=== PATIENT | female | born 1995 | race Caucasian/White ===

== ENCOUNTER → 2018-02-28 12:04 | Outpatient (REF) | payer SELFPAY ==
[2018-02-28 17:41] LABS: Basophils % 0.3 % (0.1-2.0); Eosinophils # 0.1 K/mm3 (0.0-0.4); Eosinophils % 1.6 % (0.1-12.0); Hematocrit 41.5 % (37.0-47.0); Hemoglobin 13.3 g/dL (12.2-16.2); Lymphocytes # 1.6 K/mm3 (0.7-4.5); Lymphocytes % 22.6 K/mm3 (10-50); Mean Corpuscular HGB Conc 32.1 g/dL (31.8-35.4); Mean Corpuscular Hemoglobin 27.4 pg (27.0-31.2); Mean Corpuscular Volume 85.3 fl (81-99); Mean Platelet Volume 8.7 fl (7.4-10.4); Monocytes # 0.4 K/mm3 (0.1-1.0); Monocytes % 5.3 % (1.7-9.3); Neutrophils # 5.1 K/mm3 (1.8-7.8); Neutrophils % 70.2 % (37.0-80.0); Platelet Count 249 K/mm3 (142-424); Red Blood Count 4.87 M/mm3 (4.20-5.40); Red Cell Distribution Width 14.2 % (11.5-17.5); White Blood Count 7.3 K/mm3 (4.5-13.0)
[2018-02-28 18:47] LABS: Alanine Aminotransferase 21 U/L (12-78); Albumin Level 3.8 gm/dL (3.4-5.0); Albumin/Globulin Ratio 1.1 (1.1-1.8); Alkaline Phosphatase 106 U/L (46-116); Aspartate Amino Transferase 20 U/L (15-37); Bilirubin,Total 0.2 mg/dL (0.2-1.0); Blood Urea Nitrogen 11 mg/dL (7-18); Calcium 9.1 mg/dL (8.5-10.1); Carbon Dioxide 26 mmol/L (21.0-32.0); Chloride 108 mmol/L (98-107); Creatinine,Serum 0.93 mg/dL (0.55-1.02); Estimated Glomerular Filt Rate 77 ml/min (>60); Free T4 (Free Thyroxine) 1.08 ng/dl (0.78-1.34); GFR (African American) 93 ML/MIN (>60); Globulin 3.4 gm/dl (1.3-3.2); Glucose 94 mg/dL (74-106); Sodium 144 mmol/L (136-145); Thyroid Stimulating Hormone 0.88 uIU/ml (0.516-4.13); Total Protein,Serum 7.2 gm/dL (6.4-8.2)
[2018-03-04 08:31] LABS: Vitamin D 25 Hydroxy 33.3 ng/mL (30.0-100.0)
== END ==
LOC: LAB 12:04
PROVIDERS: Visit Provider Emergency Medicine
DX: R68.89 Other general symptoms and signs (principal); E66.9 Obesity, unspecified
CPT/HCPCS: 80053; 82652; 84439; 84443; 85025

== ENCOUNTER → 2020-05-18 14:27 | Outpatient (CLI) | payer OTHER, SELFPAY ==
[2020-05-18 15:23] LABS: Adenovirus,PCR Not Detected (NotDetected); Bordetella Pertussis Not Detected (NotDetected); Chlamydophila Pneumoniae, PCR Not Detected (NotDetected); Coronavirus 229E Not Detected (NotDetected); Coronavirus NL63 Not Detected (NotDetected); Coronavirus OC43 Not Detected (NotDetected); Coronovirus HKU1,PCR Not Detected (NotDetected); Human Metapneumovirus Not Detected (NotDetected); Influenza A, PCR Not Detected (NotDetected); Influenza AH1, 2009 Not Detected (NotDetected); Influenza AH1, PCR Not Detected (NotDetected); Influenza AH3,PCR Not Detected (NotDetected); Influenza B, PCR Not Detected (NotDetected); Mycoplasma Pneumoniae, PCR Not Detected (NotDetected); Parainfluenza 1, PCR Not Detected (NotDetected); Parainfluenza 2, PCR Not Detected (NotDetected); Parainfluenza 3, PCR Not Detected (NotDetected); Parainfluenza 4, PCR Not Detected (NotDetected); Respiratory Syncytial Virus Not Detected (NotDetected); Rhinovirus/Enterovirus Not Detected (NotDetected)
--- NOTE | 2020-05-18 17:50 | PC.NURSE ---
Notified pt of positive covid swab
[2020-05-18 18:12] LABS: Coronavirus 19, PCR Detected (NotDetected)
== END ==
PROVIDERS: PCP Emergency Medicine; Visit Provider Nurse Practitioner Psychiatric/Mental Health
DX: Z20.828 Contact with and (suspected) exposure to other viral communicable diseases (principal); U07.1 COVID-19
CPT/HCPCS: 87581; 87633; 87798

== ENCOUNTER 2020-12-26 16:09 | Inpatient (IN) | payer OTHER, SELFPAY ==
[2020-12-26] VITALS (8 sets, daily range): BP systolic 118–161; BP diastolic 54–95; PULSE 69–82; RESP 16–17; TEMP 36.6–36.8; O2SAT 96–100; BMI 58.3; BMI 40.7
--- NOTE | 2020-12-26 | US_ITS ---
PROCEDURE INFORMATION: Exam: US Pelvis, Transvaginal Exam date and time: 12/26/2020 12:00 AM Age: 25 years old Clinical indication: Patient HX: Acute pelvic pain TECHNIQUE: Imaging protocol: Real-time transvaginal pelvic ultrasound with image documentation. Transvaginal imaging was used for better evaluation of the endometrium, adnexa, and/or cervix. COMPARISON: CT ABDOMEN PELVIS W CON 12/26/2020 5:11 PM FINDINGS: Uterus/cervix: Uterus is anteverted and measures 6.3 x 3.4 x 4.2 cm. Endometrium homogeneous in echotexture measuring 3 mm in thickness at the uterine fundus. Right adnexa: Right ovary normal in appearance and measures 3.5 x 2.4 x 3.9 cm. Left adnexa: Left ovary not definitively visualized. Intraperitoneal space: Small amount of pelvic free fluid. Other findings: Partially visualized, partially cystic, complex mass extending from the left adnexa into the medial aspect of the right adnexa, measuring approximately 8 cm in diameter. IMPRESSION: Complex mass within the left adnexa, possibly involving the left ovary, although no definite left ovarian normal tissue identified. Large hemorrhagic ovarian cyst possible. Recommend gynecologic evaluation and sonographic follow-up.
--- NOTE | 2020-12-26 16:23 | CT_ITS ---
PROCEDURE INFORMATION: Exam: CT Abdomen And Pelvis With Contrast Exam date and time: 12/26/2020 4:23 PM Age: 25 years old Clinical indication: Localized; Left lower quadrant (llq); Patient HX: Left lower quadrant abdominal pain for about 3 hours with nausea; Additional info: Llq pain TECHNIQUE: Imaging protocol: Computed tomography of the abdomen and pelvis with contrast. Radiation optimization: All CT scans at this facility use at least one of these dose optimization techniques: automated exposure control; mA and/or kV adjustment per patient size (includes targeted exams where dose is matched to clinical indication); or iterative reconstruction. Contrast material: ISOVUE; Contrast volume: 75 ml; Contrast route: IV; COMPARISON: CR (PELVIS AP, PELVIS, PELVIS AP) 11/17/2018 6:09 PM FINDINGS: Lungs: Calcified granuloma within the periphery of the right lower lobe. Liver: Normal. Gallbladder and bile ducts: Normal. Pancreas: Normal. Spleen: Normal. Adrenal glands: Normal. No mass. Kidneys and ureters: Normal. Stomach and bowel: Normal. Appendix: Appendix normal. Intraperitoneal space: Small amount of pelvic free fluid, likely physiologic. Vasculature: Phleboliths within the pelvis. Lymph nodes: Unremarkable. No enlarged lymph nodes. Urinary bladder: Unremarkable as visualized. Reproductive: Heterogeneous bilobed structure within the left upper pelvis measuring 4.8 x 4.1 cm, possibly enlarged left ovary, although not definitively characterized. Bones/joints: No acute abnormality. Soft tissues: Normal. IMPRESSION: Heterogeneous bilobed structure within the left upper pelvis measuring 4.8 x 4.1 cm, possibly enlarged left ovary, although not definitively characterized. Recommend further evaluation with sonography.
--- NOTE | 2020-12-26 16:34 | HMH.EDABDPAI ---
ED Disposition Clinical Impression: Hemorrhagic cyst of left ovary, Intractable abdominal pain Disposition: Admitted As Inpatient Condition on Discharge: Fair Instructions: DI for Acute Abdominal Pain Referrals: José Umanzor MD [Primary Care Provider] - - Critical Care Critical Care Time: No Attestation: On , the high probability of a clinically significant, sudden or life threatening deterioration of the following system(s) required my full and direct attention, intervention and personal management. The time I documented below is in addition to time spent performing reported procedures but includes the following listed in this critical care notation. Medical Decision Making - Medical Records Medical records reviewed: Yes: I reviewed the patient's medical records. - Abdulaziz Inquiry Pt receiving controlled substance: Yes Abdulaziz was queried for this patient: No Reason not queried -: Emergent pt cond-no time Risks and benefits of using a controlled substance: were discussed with pt by me Vital Signs: 12/26/20 16:10 12/26/20 16:26 12/26/20 16:32 Temperature 98 F Temperature Source Oral Pulse Rate 77 80 Pulse Rate [Radial] 77 Respiratory Rate 16 Blood Pressure 161/92 H 161/80 H Blood Pressure [Right Arm] 120/54 L Blood Pressure Mean [Right Arm] 76 Blood Pressure Position [Right Arm] Sitting 02 Sat by Pulse Oximetry 98 96 98 Oxygen Delivery Method Room Air 12/26/20 17:49 Temperature Temperature Source Pulse Rate 70 Pulse Rate [Radial] Respiratory Rate Blood Pressure 118/80 Blood Pressure [Right Arm] Blood Pressure Mean [Right Arm] Blood Pressure Position [Right Arm] 02 Sat by Pulse Oximetry 96 Oxygen Delivery Method - Lab Data Lab Results 12/26/20 16:28: Urine Color Yellow, Urine Appearance Clear, Urine pH 7.5, Ur Specific [place] 1.025, Urine Protein 2+, Urine Glucose (UA) Negative, Urine Ketones Negative, Urine Blood 3+, Urine Nitrate Negative, Urine Bilirubin Negative, Urine Urobilinogen 1.0, Ur Leukocyte Esterase Negative, Urine RBC Tntc, Urine WBC 5-10, Ur Squamous Epith Cells 3-5, Urine Bacteria 1+, Urine Mucus 1+ 12/26/20 16:28: Urine HCG, Qual Negative 12/26/20 16:28: WBC 10.5, RBC 4.74, Hgb 12.5, Hct 38.5, MCV 81.3, MCH 26.3 L, MCHC 32.4, RDW 15.8, Plt Count 302, MPV 8.3, Neut % (Auto) 66.9, Lymph % (Auto) 26.1, [place] % (Auto) 5.0, Eos % (Auto) 1.5, Baso % (Auto) 0.5, Neut # (Auto) 7.0, Lymph # (Auto) 2.8, [place] # (Auto) 0.5, Eos # (Auto) 0.2, Baso # (Auto) 0.1 12/26/20 16:28: Sodium 141, Potassium 4.0, Chloride 109 H, Carbon Dioxide 23, Anion Gap 13.0, BUN 11, Creatinine 0.90, Estimated Creat Clear 181, Estimated GFR 78, Est GFR ( Amer) 94, Glucose 111 H, Calcium 9.1, Total Bilirubin 0.4, AST 22, ALT 13, Alkaline Phosphatase 121, Total Protein 7.9, Albumin 4.6, Globulin 3.3 H, Albumin/Globulin Ratio 1.4 12/26/20 16:28: Lipase 49 Result diagrams: 12/26/20 16:28 12/26/20 16:28 Orders (Tests/Meds): ED MEDICATIONS Discontinued Medications Generic Name Dose Route Start Last Admin Trade Name Lukasq PRN Reason Stop Dose Admin Fentanyl Citrate 50 mcg 12/26/20 18:20 12/26/20 18:23 Fentanyl 100mcg/2ml Vial IV 12/26/20 18:21 50 mcg ONCE ONE Administration Sodium Chloride 1,000 mls @ 999 mls/hr 12/26/20 16:30 12/26/20 16:34 Sod Chlor 0.9% 1000ml Bag IV 12/26/20 17:30 999 mls/hr .Q1H1M AIDA Administration Iopamidol 75 ml 12/26/20 17:19 12/26/20 17:20 Iopamidol-370 (76%);100ml Bottle IV 12/26/20 17:20 75 ml ONCE ONE Administration Morphine Sulfate 4 mg 12/26/20 16:22 12/26/20 16:33 Morphine 4mg/Ml Syringe IV 12/26/20 16:23 4 mg ONCE ONE Administration Morphine Sulfate 4 mg 12/26/20 17:55 12/26/20 18:22 Morphine 4mg/Ml Syringe IV 12/26/20 17:56 Not Given ONCE ONE Ondansetron HCl 4 mg 12/26/20 16:22 12/26/20 16:33 Ondansetron 4mg/2ml Vial IV 12/26/20 16:23 4 mg ONCE ONE Administration Sod
[2020-12-26 16:38] LABS: Microscopic, Urine URINE MICROSCOPIC (MICROSCOPIC)
[2020-12-26 16:42] LABS: Basophils # 0.1 K/mm3 (0-0.2); Basophils % 0.5 % (0.1-2.0); Eosinophils # 0.2 K/mm3 (0.0-0.4); Eosinophils % 1.5 % (0.1-12.0); Hematocrit 38.5 % (37.0-47.0); Hemoglobin 12.5 g/dL (12.2-16.2); Lymphocytes # 2.8 K/mm3 (0.7-4.5); Lymphocytes % 26.1 % (10-50); Mean Corpuscular HGB Conc 32.4 g/dL (31.8-35.4); Mean Corpuscular Hemoglobin 26.3 pg (27.0-31.2); Mean Corpuscular Volume 81.3 fl (81-99); Mean Platelet Volume 8.3 fl (7.4-10.4); Monocytes # 0.5 K/mm3 (0.1-1.0); Neutrophils % 66.9 % (37.0-80.0); Platelet Count 302 K/mm3 (142-424); Red Blood Count 4.74 M/mm3 (4.20-5.40); Red Cell Distribution Width 15.8 % (11.5-17.5); White Blood Count 10.5 K/mm3 (4.8-10.8)
[2020-12-26 16:48] LABS: Chloride 109 mmol/L (98-107); Sodium 141 mmol/L (136-145)
[2020-12-26 16:51] LABS: Alanine Aminotransferase 13 U/L (12-78); Albumin Level 4.6 g/dl (3.5-5.0); Albumin/Globulin Ratio 1.4 (1.1-1.8); Alkaline Phosphatase 121 U/L (38-126); Aspartate Amino Transferase 22 U/L (14-36); Bilirubin,Total 0.4 mg/dl (0.2-1.3); Blood Urea Nitrogen 11 mg/dl (7-17); Calcium 9.1 mg/dl (8.4-10.2); Carbon Dioxide 23 mmol/L (22.0-30.0); Creatinine Clearance Estimated 181 mL/min (50-200); Estimated Glomerular Filt Rate 78 ml/min (>60); GFR (African American) 94 ML/MIN (>60); Globulin 3.3 g/dL (1.3-3.2); Glucose 111 mg/dl (74-100); Total Protein,Serum 7.9 g/dl (6.3-8.2)
[2020-12-26 16:52] LABS: Lipase 49 U/L (23-300)
[2020-12-26 16:57] LABS: Appearance,Urine CLEAR (Clear); Bilirubin,Urine Negative (Negative); Blood, Urine 3+ (Negative); Color,Urine YELLOW (Yellow); Glucose,Urine (UA) Negative (Negative); Ketones,Urine Negative (Negative); Leukocyte Esterase,Urine Negative (Negative); Nitrate,Urine Negative (Negative); PH,Urine 7.5 (5.0-8.5); Protein,Urine 2+ (Negative); Specific Gravity, Urine 1.025 (1.005-1.030)
[2020-12-26 17:01] LABS: Urine Pregnancy, HCG Qual. Negative (Negative)
--- NOTE | 2020-12-26 17:09 | PC.NURSE ---
pt to rad.
[2020-12-26 17:13] LABS: RBC,Urine TNTC #/hpf (0-3)
[2020-12-26 17:14] LABS: Bacteria,Urine 1+ /lpf; Mucus,Urine 1+ /lpf
--- NOTE | 2020-12-26 17:46 | PC.NURSE ---
Pt returned from rad.
--- NOTE | 2020-12-26 17:49 | PC.NURSE ---
Pt requesting more pain meds at this time. aware and will be placing new orders
[2020-12-26 18:43] LABS: Coronavirus 19, PCR Not Detected (NotDetected); Influenza A, PCR Not Detected (NotDetected); Influenza B, PCR Not Detected (NotDetected)
--- NOTE | 2020-12-26 19:45 | PC.NURSE ---
REPORT RECEIVED FROM Angie OWEN RN AT THIS TIME.
--- NOTE | 2020-12-26 19:54 | HMH.HP ---
*Admission Date: 12/26/20 *Chief complaint: Severe left lower quadrant pain, hemorrhagic ovarian cyst *History of present illness: She is a 25-year-old 0 para 0 young lady who complains of severe left lower quadrant pain that started around 2:00 this afternoon. Up until that time she said she was doing well. test is negative. Ultrasound shows that she has a 6 to 7 cm right hemorrhagic ovarian cyst. Not clear why her left side is hurting. Ultrasound did not show the left ovary. [facility] [place] History I have reviewed the patient's past medical history: Yes Medical History: Denies:: Diabetes Mellitus Type 1, Diabetes Mellitus Type 2, Transient Ischemic Attacks (TIA) *Have you ever received a pneumonia vaccine?: No *Have you received a flu vaccine this season?: Yes Laterality Cases: Bilateral: Myringotomy (Ear Tubes), Tonsillectomy Other Surgeries: Yes: Other Amputation: No Fractures: No - *Social History Smoking Status: Never smoker Alcohol Intake: never Alcohol Intake Frequency:: a few times a month Substance Use Type: denies use *Occupational Status:: other, employed Household Members: family *Travel in the last 8 weeks: None Family Hx:: Thyroid Disorder Review of Systems - Review of Systems Review of systems:: pertinent systems reviewed and negative unless documented below - *Neurologic Denies headache(s) Meds Home Medications Medication Instructions Recorded Confirmed Type No Known Home Medications 12/26/20 12/26/20 History Allergies Allergy/AdvReac Type Severity Reaction Status Date / Time No Known Allergies Allergy Verified 12/26/20 18:34 Exam Vital signs and Labs for Last 24 Hours: Temp Pulse Resp BP Pulse Ox 98.0 F 82 16 144/64 H 100 12/26/20 19:22 12/26/20 19:22 12/26/20 19:22 12/26/20 19:22 12/26/20 18:25 Laboratory Results - last 24 hr 12/26/20 16:28: Urine Color Yellow, Urine Appearance Clear, Urine pH 7.5, Ur Specific [place] 1.025, Urine Protein 2+, Urine Glucose (UA) Negative, Urine Ketones Negative, Urine Blood 3+, Urine Nitrate Negative, Urine Bilirubin Negative, Urine Urobilinogen 1.0, Ur Leukocyte Esterase Negative, Urine RBC Tntc, Urine WBC 5-10, Ur Squamous Epith Cells 3-5, Urine Bacteria 1+, Urine Mucus 1+ 12/26/20 16:28: Urine HCG, Qual Negative 12/26/20 16:28: WBC 10.5, RBC 4.74, Hgb 12.5, Hct 38.5, MCV 81.3, MCH 26.3 L, MCHC 32.4, RDW 15.8, Plt Count 302, MPV 8.3, Neut % (Auto) 66.9, Lymph % (Auto) 26.1, [place] % (Auto) 5.0, Eos % (Auto) 1.5, Baso % (Auto) 0.5, Neut # (Auto) 7.0, Lymph # (Auto) 2.8, [place] # (Auto) 0.5, Eos # (Auto) 0.2, Baso # (Auto) 0.1 12/26/20 16:28: Sodium 141, Potassium 4.0, Chloride 109 H, Carbon Dioxide 23, Anion Gap 13.0, BUN 11, Creatinine 0.90, Estimated Creat Clear 181, Estimated GFR 78, Est GFR ( Amer) 94, Glucose 111 H, Calcium 9.1, Total Bilirubin 0.4, AST 22, ALT 13, Alkaline Phosphatase 121, Total Protein 7.9, Albumin 4.6, Globulin 3.3 H, Albumin/Globulin Ratio 1.4 12/26/20 16:28: Lipase 49 12/26/20 18:25: SARS-CoV-2 (PCR) Not detected, Influenza A Untype (PCR) Not detected, Influenza Type B (PCR) Not detected I & O for Last 24 hours: Intake & Output 12/24/20 12/25/20 12/26/20 12/27/20 11:59 11:59 11:59 11:59 Intake Total 1000 / 1000 Balance 1000 / 1000 Weight 260 lb - Constitutional no acute distress - *Routine HEENT Exam Head: Present: normocephalic Eye: Present: EOMI, PERRL ENT: Present: mucous membranes moist - *Routine Neck Exam Present: supple, full ROM - *Routine Respiratory Exam Absent: accessory muscle use (good air entry bilaterally), wheezes, crackles - *Routine Cardiovascular Exam Present: RRR. Absent: murmur - *Routine Abdominal Exam Present: soft, normoactive bowel sounds. Absent: tenderness, rebound, guarding, mass - *Routine Rectal Exam Rectal:: deferred - *Routine Genitalia Exam Genitalia:: deferred - *Routine Extremities Exam Present: full ROM. Absent: c
--- NOTE | 2020-12-26 22:55 | PC.NURSE ---
MD NOTIFIED OF UNRESOLVED PAIN AFTER PRN PAIN MEDICATIONS. PATIENT RATES PAIN 8/10 THAT WAS UNRELIEVED WITH 1MG DILAUDID IV. NEW ORDERS TO CHANGE CURRENT ORDER FOR DILAUDID 1MG IV FROM Q4H TO Q3H. ALSO, ADDITIONAL ORDER FOR DILAUDID 1MG IV Q2H PRN FOR BREAKTHROUGH PAIN AND TORADOL 30MG IV Q6 AIDA. ALL ORDERS R/V
[2020-12-27] VITALS (27 sets, daily range): BP systolic 104–137; BP diastolic 54–94; PULSE 71–105; RESP 12–20; TEMP 36.3–43; O2SAT 92–98
--- NOTE | 2020-12-27 04:10 | PC.NURSE ---
PATIENT HAS DONE WELL THIS SHIFT. PAIN WAS WELL CONTROLLED WITH NEW PRN PAIN MEDICATION AND SHE WAS ABLE TO SLEEP. IV IS PATENT AND INFUSING WELL IN THE LEFT FOREARM. BOWEL SOUNDS ARE NORMOACTIVE IN ALL QUADRANTS. LUNGS CTAB. PAIN AND ABDOMINAL TENDERNESS REMAINS IN LOWER LEFT QUADRANT. PATIENT IS A&O X4 AND AMBULATES INDEPENDENTLY TO THE BATHROOM. CALL LIGHT WITHIN REACH.
--- NOTE | 2020-12-27 06:02 | PC.NURSE ---
LAB AT BEDSIDE
[2020-12-27 06:41] LABS: Basophils % 0.4 % (0.1-2.0); Eosinophils % 0.4 % (0.1-12.0); Hematocrit 36.7 % (37.0-47.0); Hemoglobin 11.7 g/dL (12.2-16.2); Lymphocytes # 1.8 K/mm3 (0.7-4.5); Lymphocytes % 17.8 % (10-50); Mean Corpuscular HGB Conc 31.9 g/dL (31.8-35.4); Mean Corpuscular Hemoglobin 26.3 pg (27.0-31.2); Mean Corpuscular Volume 82.5 fl (81-99); Mean Platelet Volume 8.2 fl (7.4-10.4); Monocytes # 0.6 K/mm3 (0.1-1.0); Monocytes % 5.7 % (1.7-9.3); Neutrophils # 7.7 K/mm3 (1.8-7.8); Neutrophils % 75.7 % (37.0-80.0); Platelet Count 261 K/mm3 (142-424); Red Blood Count 4.45 M/mm3 (4.20-5.40); Red Cell Distribution Width 15.4 % (11.5-17.5); White Blood Count 10.1 K/mm3 (4.8-10.8)
[2020-12-27 06:42] LABS: Chloride 105 mmol/L (98-107); Potassium 4.2 mmoL/L (3.5-5.1); Sodium 137 mmol/L (136-145)
[2020-12-27 06:45] LABS: Alanine Aminotransferase 12 U/L (12-78); Albumin Level 3.7 g/dl (3.5-5.0); Albumin/Globulin Ratio 1.2 (1.1-1.8); Alkaline Phosphatase 95 U/L (38-126); Anion Gap 9.2 mEq/L (5-15); Aspartate Amino Transferase 17 U/L (14-36); Bilirubin,Total 0.3 mg/dl (0.2-1.3); Blood Urea Nitrogen 9 mg/dl (7-17); Carbon Dioxide 27 mmol/L (22.0-30.0); Creatinine Clearance Estimated 233 mL/min (50-200); Estimated Glomerular Filt Rate 104 ml/min (>60); GFR (African American) 125 ML/MIN (>60); Total Protein,Serum 6.7 g/dl (6.3-8.2)
[2020-12-27 06:46] LABS: Calcium 8.4 mg/dl (8.4-10.2); Glucose 114 mg/dl (74-100)
--- NOTE | 2020-12-27 07:21 | HMH.ANESCL ---
[facility] Anesthesia Checklist - Structural Data Admitted From: Inpatient Planned Operative Procedure/s: cystectomy Consent for Planned Operative Procedure(s) Verified: Yes - Airway Assessment C-Spine Mobility Assessed: Yes TMJ Mobility Assessed: Yes Dentition: Good Dentition - Neurological Assessment Level of Consciousness: Awake, Alert, Appropriate - Anesthesia Plan Anesthesia Risk discussed: Yes Anesthesia Plan: Verified ASA Class: II Anesthesia Type: General [facility] History I have reviewed the patient's past medical history: Yes Medical History: Denies:: Cancer, Diabetes Mellitus Type 1, Diabetes Mellitus Type 2, MRSA, Transient Ischemic Attacks (TIA) *Have you ever received a pneumonia vaccine?: No *Have you received a flu vaccine this season?: No Anesthesia experience/problems:: none Laterality Cases: Bilateral: Myringotomy (Ear Tubes), Tonsillectomy Other Surgeries: Yes: Other (ADENOIDECTOMY) Amputation: No Fractures: No - *Social History Last grade of school completed: Some college Smoking Status: Never smoker Alcohol Intake: current Alcohol Intake Frequency:: a few times a week Substance Use Type: denies use *Occupational Status:: employed Housing: house Household Members: family *Travel in the last 8 weeks: None Family Hx:: Stroke, Thyroid Disorder
--- NOTE | 2020-12-27 08:09 | PC.NURSE ---
Pt was transported by my Copeland RN, around 0700 to surgery department via wheelchair.
--- NOTE | 2020-12-27 09:49 | HMH.ANESI ---
[facility] Anesthesia Record Part I Intake, IV Amount: 1,900 Estimated blood loss (mL): 150 Urine output (mL): 0 Blood Pressure: 133/54 SaO2: 96 Pulse Rate: 84 Respiratory Rate: 12 Temperature: 97.3 F Patient is:: Awake, Stable Stable to PACU at:: 09:45
--- NOTE | 2020-12-27 09:50 | HMH.OPNOTE ---
Date of procedure: 12/27/20 Pre-op Diagnosis:: Left lower quadrant pain, hemorrhagic ovarian cyst Post-op Diagnosis:: Tubo ovarian torsion, tubo-ovarian abscess, necrosis of the tube and ovary Procedure performed:: Laparoscopic left salpingo-oophorectomy, mini Pfannenstiel laparotomy Surgeon:: Kurt Wise MD OYSTER OPENER:: Josiah Perez Anesthesia: GETA Estimated blood loss (mL): 150 Clinical Note:: She is a 25-year-old 0 para 0 young lady who had sudden onset of severe left lower quadrant pain. She had an ultrasound that showed what appeared to be a hemorrhagic left ovarian cyst. It was proximally 7 cm in size. There seem to be good flow in the left ovary. As result of this she was observed overnight and taken for laparoscopic removal of her hemorrhagic cyst this morning. Risks and benefits of surgery were discussed with patient and her mother prior to surgery. Operative findings:: Upon entering the abdominal cavity there was a large hemorrhagic structure. It turned out to be the left tube and it was quite purple in color. The left ovary as well was purple in color. There was a twist on the infundibulopelvic ligament near the cornua on the left. The blood supply had been completely cut off to the left ovary and tube. The rest the pelvis appeared normal. The right tube and right ovary appeared normal. Operative note:: She was taken the operating room where general anesthesia was found be adequate. She was prepped and draped normal sterile fashion in the semilithotomy position. A weighted speculum is placed in the vagina and the anterior lip of the cervix was grasped with a tenaculum. I inserted a Janet uterine manipulator into the uterine cavity inflated the balloon. I then changed gloves and injected 10 cc of 0.25% ropivacaine around the umbilicus. I made a small incision here and inserted a Veress needle. The abdominal cavity was then insufflated to 20 mmHg. I then inserted an 11 mm trocar under direct vision. I injected through and through the pubic hairline, made a small incision here and then inserted a 5 mm trocar under direct vision. Identified the inferior epigastric arteries, went lateral to these and injected through and through with ropivacaine. I then inserted a 5 mm trocar under direct vision. The findings were as previously dictated. I was then able to untwist the ovary and tube. I allowed it to sit for about 5 minutes and there really was no return of color or flow to the ovary and tube on the left side. As result of this I elected to remove the left tube and ovary. I removed the 5 mm trocar and then inserted at 12 mm trocar under direct vision. Then using an Endo CAMPBELL I went across the infundibulopelvic ligament and left tube and cut away the tube and ovary. I then placed 2 endoclips on the infundibulopelvic ligament artery as well as the vein. I cauterized along where I have cut the tube and ovary. I then rinsed the pelvis well. I then elected to remove the tube and ovary through a small mini Pfannenstiel incision. I had open the tube to see if I could drain the blood from the tube and just made a small stab incision with the harmonic scalpel. When I did this it was noted that there was pus coming from the inside of the tube. It was then I realized that she had a tubo-ovarian abscess. She was still in the same position and I just made a small incision suprapubically. She was quite obese so the incision needed to be larger than I wanted. Using knife I cut the skin this was followed by cautery down to the fascia. The fascia then opened midline and extended laterally using Aviles scissors. Gerardo clamps were then applied the superior aspect of fascial incision which was tented up and the underlying rectus muscles dissected off using cautery. The Gerardo clamps were then applied to the inferior aspect of the incision which in a similar fashion was tented up and the underlying rectus muscles dissected off using c
--- NOTE | 2020-12-27 10:57 | SUR.OPER ---
0846 open procedure began; family notified
--- NOTE | 2020-12-27 12:24 | PC.NURSE ---
LATE ENTRY: REPORT RECEIVED FROM HARMONY CEVALLOS. PT WITH 2 LAP SITES CDI, LTV INCISION WITH T/T DRESSING WITH SEROSANGINOUS DRAINAGE. VS 124/69, 16 RR, 99% O2 ON 2L/NC, 77HR, AND 97.0 TEMP. 1MG DILAUDID GIVEN IN PACU AND SCUDDS IN PLACE.
--- NOTE | 2020-12-27 19:09 | PC.NURSE ---
REPORT RECEIVED FROM Naina VAZQUEZ RN
--- NOTE | 2020-12-27 19:09 | PC.NURSE ---
REPORT GIVEN TO JAYASHREE CEVALLOS
[2020-12-28 03:32] VITALS: BP 112/59; PULSE 95; RESP 17; TEMP 36.8; O2SAT 97
--- NOTE | 2020-12-28 03:54 | PC.NURSE ---
PATIENT HAS DONE VERY WELL THIS SHIFT. PAIN HAS BEEN CONTROLLED WITH SCHEDULED AND PRN MEDICATIONS. SHE HAS BEEN ABLE TO SLEEP SOUNDLY. VITAL SIGNS HAVE REMAINED STABLE AND SHE IS AFEBRILE. HER IV IS PATENT AND INFUSING WELL. LUNGS ARE CTAB AND BOWELS ARE HYPOACTIVE IN ALL QUADRANTS. SHE HAS TOLERATED HER DIET WELL AND HAS EATEN A FEW SNACKS WITHOUT ISSUES. ALL SURGICAL INCISION SITES ARE C/D/I. SHE IS A&OX4. WILL CONTINUE WITH SCHEDULED PAIN MEDICATIONS AND ABX. ROBLERO CATHETER IS IN PLACE AND DRAINING LIGHT YELLOW URINE ADEQUATELY, THIS WILL COME OUT THIS AM. CALL LIGHT IN REACH, WILL CONTINUE TO MONITOR.
--- NOTE | 2020-12-28 06:10 | PC.NURSE ---
PATIENT RATES HER PAIN 6/10. MEDICATED PER SEP. PATIENT DECLINES TO AMBULATE TO BATHROOM AT THIS TIME. WOULD LIKE TO ALLOW MEDICATION TO WORK FIRST.
--- NOTE | 2020-12-28 06:54 | PC.NURSE ---
REPORT GIVEN TO Naina VAZQUEZ RN
[2020-12-28 06:56] LABS: Basophils % 0.2 % (0.1-2.0); Eosinophils % 0.3 % (0.1-12.0); Hematocrit 29.1 % (37.0-47.0); Hemoglobin 9.8 g/dL (12.2-16.2); Lymphocytes % 21.2 % (10-50); Mean Corpuscular HGB Conc 33.6 g/dL (31.8-35.4); Mean Corpuscular Hemoglobin 27.1 pg (27.0-31.2); Mean Corpuscular Volume 80.8 fl (81-99); Mean Platelet Volume 8.2 fl (7.4-10.4); Monocytes # 0.6 K/mm3 (0.1-1.0); Monocytes % 6.7 % (1.7-9.3); Neutrophils # 6.7 K/mm3 (1.8-7.8); Neutrophils % 71.6 % (37.0-80.0); Platelet Count 213 K/mm3 (142-424); Red Cell Distribution Width 15.5 % (11.5-17.5); White Blood Count 9.4 K/mm3 (4.8-10.8)
[2020-12-28 07:50] LABS: Chloride 108 mmol/L (98-107); Potassium 3.8 mmoL/L (3.5-5.1); Sodium 140 mmol/L (136-145)
[2020-12-28 07:53] LABS: Anion Gap 9.8 mEq/L (5-15); Blood Urea Nitrogen 10 mg/dl (7-17); Calcium 8.2 mg/dl (8.4-10.2); Carbon Dioxide 26 mmol/L (22.0-30.0); Creatinine Clearance Estimated 204 mL/min (50-200); Estimated Glomerular Filt Rate 89 ml/min (>60); GFR (African American) 108 ML/MIN (>60); Glucose 99 mg/dl (74-100)
[2020-12-28 08:00] VITALS: BP 96/45; PULSE 97; RESP 18; TEMP 37.1; O2SAT 96
--- NOTE | 2020-12-28 09:34 | HMH.ACPN2 ---
Internal Medicine - PN: Subj *Date: 12/28/20 *Time: 09:34 Interval history: She continues to do very well this morning. She is eating and drinking and ambulating. She has had her Malik out and has not voided yet. Her vital signs are stable. She looks well. Exam Vital signs and Labs for Last 24 Hours: Temp Pulse Resp BP Pulse Ox 98.8 F 97 H 18 96/45 L 96 12/28/20 08:00 12/28/20 08:00 12/28/20 08:00 12/28/20 08:00 12/28/20 08:00 Laboratory Results - last 24 hr 12/28/20 06:21: WBC 9.4, RBC 3.60 L, Hgb 9.8 L, Hct 29.1 L, MCV 80.8 L, MCH 27.1, MCHC 33.6, RDW 15.5, Plt Count 213, MPV 8.2, Neut % (Auto) 71.6, Lymph % (Auto) 21.2, [place] % (Auto) 6.7, Eos % (Auto) 0.3, Baso % (Auto) 0.2, Neut # (Auto) 6.7, Lymph # (Auto) 2.0, [place] # (Auto) 0.6, Eos # (Auto) 0.0, Baso # (Auto) 0.0 12/28/20 06:21: Sodium 140, Potassium 3.8, Chloride 108 H, Carbon Dioxide 26, Anion Gap 9.8, BUN 10, Creatinine 0.80, Estimated Creat Clear 204, Estimated GFR 89, Est GFR ( Amer) 108, Glucose 99, Calcium 8.2 L I & O for Last 24 hours: Intake & Output 12/25/20 12/26/20 12/27/20 12/28/20 11:59 11:59 11:59 11:59 Intake Total 2900 / 2900 3704 / 3704 Output Total 2800 / 2800 Balance 2875 / 2875 904 / 904 Weight 260 lb - Constitutional no acute distress - *Routine HEENT Exam Head: Present: normocephalic Eye: Present: EOMI, PERRL ENT: Present: mucous membranes moist - *Routine Neck Exam Present: supple. Absent: lymphadenopathy - *Routine Abdominal Exam Present: soft, normoactive bowel sounds. Absent: tenderness - *Routine Neurological Exam Present: alert, oriented X3 Assessment and Plan (1) Hemorrhagic cyst of left ovary Status: Acute Category: Medical Code(s): N83.202 - Unspecified ovarian cyst, left side (2) Intractable abdominal pain Status: Acute Category: Medical Code(s): R10.9 - Unspecified abdominal pain (3) Fallopian tube abscess Status: Acute Category: Medical Code(s): N70.91 - Salpingitis, unspecified (4) Torsion of ovary, ovarian pedicle and fallopian tube Status: Acute Category: Medical Code(s): N83.53 - Torsion of ovary, ovarian pedicle and fallopian tube - Assessment and plan all Dx Assessment and Plan for all problems:: She continues to do well. We will slow her IV down. We will plan to continue with her antibiotics for now. We will keep her for another couple of days.
--- NOTE | 2020-12-28 10:56 | P.CONPHA_ITS ---
[facility] Pharmacy VTE Monitoring - Patient Demographics Admission date: 12/25/20 Report Date: 12/28/20 Time: 10:56 Allergies/Adverse Reactions: Patient Allergies No Known Allergies Allergy (Verified 12/26/20 18:34) Height: 1.7 m Weight: 117.934 kg Patient Problems: Current Active Problems Fallopian tube abscess (Acute) Torsion of ovary, ovarian pedicle and fallopian tube (Acute) Hemorrhagic cyst of left ovary (Acute) Intractable abdominal pain (Acute) - VTE Risk Labs: VTE Related Lab Results Hgb 9.8 g/dL (12.2-16.2) L 12/28/20 06:21 Hct 29.1 % (37.0-47.0) L 12/28/20 06:21 Plt Count 213 K/mm3 (142-424) 12/28/20 06:21 BUN 10 mg/dl (7-17) 12/28/20 06:21 Creatinine 0.80 mg/dl (0.52-1.04) 12/28/20 06:21 Estimated Creat Clear 204 mL/min (50-200) 12/28/20 06:21 Was VTE Risk Assessment Performed: Yes VTE Score: 2 VTE Risk Level: Very Low Risk Clinical Trial Participant: No - Prophylaxis VTE Prophylaxis Ordered?: Yes Types of VTE Prophylaxis: IPCS Knee High (POST OP) Location of Applied Device: Bilateral Lower Extremeties
[2020-12-28 11:12] VITALS: RESP 18
[2020-12-28 12:00] VITALS: BP 115/78; PULSE 85; RESP 18; TEMP 37; O2SAT 95
--- NOTE | 2020-12-28 14:05 | PC.NURSE ---
LATE ENTRY: 1235 PT UP TO BATHROOM WITH ASSIST X1. GOWN AND LINENS CHANGED. MESH UNDERWEAR AND PAD APPLIED. PT TOLERATED WELL AND IS NOW SITTING UP IN CHAIR. PT DECLINED SHOWER OR BATH AT THIS TIME.
[2020-12-28 15:14] VITALS: RESP 18
--- NOTE | 2020-12-28 18:32 | PC.NURSE ---
LATE ENTRY 1600: PT A&OX3, NO ACUTE CHANGES NOTED. PT VSS. DRESSINGS CDI. WILL CONTINUE TO MONITOR. 1700: PT UP TO SHOWER. DRESSINGS REMOVED AND INCISIONS CLEANED. ALL SURGICAL INCISIONS ARE APPROXIMATED, WITHOUT SIGNS OR SYMPTOMS OF INFECTION. PT TOLERATED WELL.
--- NOTE | 2020-12-28 19:19 | PC.NURSE ---
REPORT GIVEN TO MICKEY CEVALLOS
[2020-12-28 20:00] VITALS: BP 102/52; PULSE 116; RESP 17; TEMP 37.3; O2SAT 97
[2020-12-29] VITALS (9 sets, daily range): BP systolic 87–124; BP diastolic 40–68; PULSE 80–112; RESP 16–17; TEMP 36.3–38.8; O2SAT 95–96
--- NOTE | 2020-12-29 05:48 | PC.NURSE ---
pt has rested well throughout shift, pts pain has been managed with prn oxy x 1 and scheduled toradol. bs x 4 quads, lungs remain clear, vss.
--- NOTE | 2020-12-29 06:59 | PC.NURSE ---
report given to Narcisa Kyle RN
--- NOTE | 2020-12-29 09:49 | P.PN_ITS ---
[facility] Anesthesia Record Part II Discharge Time: 10:25 Destination: Obstetric PACU nurse assessment reviewed?: Yes Patient Condition:: Good Anesthesia Complications:: None Swallowing reflex intact?: Yes Cyanosis?: No Blood Pressure: 124/68 Pulse Rate: 80 Temperature: 97.3 F Mental Status: Alert & Oriented Pain level:: 6 Nausea and/or vomitting:: None Intake, IV Amount: 0
--- NOTE | 2020-12-29 11:59 | PC.NURSE ---
DR. KUMAR NOTIFIED AT THIS TIME OF 101.8 TEMPERATURE. ORDERS FOR BLOOD CULTURES X 2, FAMILY MD CONSULT. R/V
--- NOTE | 2020-12-29 12:09 | PC.NURSE ---
NICOLA AT DR. MAN'S OFFICE NOTIFIED OF CONSULT, WILL NOTIFY BASKET BRAIDER, DR. MAN OFF TODAY. STATES DR. COLON WILL SEE PT AFTER 1600
--- NOTE | 2020-12-29 12:25 | PC.NURSE ---
DR. KUMAR AT BEDSIDE
--- NOTE | 2020-12-29 12:31 | HMH.ACPN2 ---
Internal Medicine - PN: Subj *Date: 12/29/20 *Time: 12:31 Interval history: She is doing well from a pain standpoint but she has spiked a fever to 101.8 degrees today. She denies any increased pain, shortness of breath or calf tenderness. She denies any dysuria. Her incision is clean and dry. Her antibiotics currently include azithromycin and Ancef. Exam Vital signs and Labs for Last 24 Hours: Temp Pulse Resp BP Pulse Ox 101.8 F H 110 H 17 112/68 95 12/29/20 11:55 12/29/20 11:55 12/29/20 11:55 12/29/20 11:55 12/29/20 11:55 I & O for Last 24 hours: Intake & Output 12/27/20 12/28/20 12/29/20 12/30/20 11:59 11:59 11:59 11:59 Intake Total 2900 / 2900 3704 / 3704 0 / 0 Output Total 25 / 25 3300 / 3300 300 / 300 Balance 2875 / 2875 404 / 404 -300 / -300 Weight 260 lb - Constitutional no acute distress - *Routine HEENT Exam Head: Present: normocephalic Eye: Present: EOMI, PERRL ENT: Present: mucous membranes moist - *Routine Neck Exam Present: supple. Absent: lymphadenopathy - *Routine Respiratory Exam Present: CTA bilaterally - *Routine Cardiovascular Exam Present: RRR - *Routine Abdominal Exam Present: soft, normoactive bowel sounds. Absent: tenderness - *Routine Extremities Exam Absent: cyanosis, clubbing, edema Assessment and Plan (1) Hemorrhagic cyst of left ovary Status: Acute Category: Medical Code(s): N83.202 - Unspecified ovarian cyst, left side (2) Intractable abdominal pain Status: Acute Category: Medical Code(s): R10.9 - Unspecified abdominal pain (3) Fallopian tube abscess Status: Acute Category: Medical Code(s): N70.91 - Salpingitis, unspecified (4) Torsion of ovary, ovarian pedicle and fallopian tube Status: Acute Category: Medical Code(s): N83.53 - Torsion of ovary, ovarian pedicle and fallopian tube - Assessment and plan all Dx Assessment and Plan for all problems:: We will change her antibiotics to doxycycline and Flagyl to make sure that we cover the anaerobes as well as those pathogens that cause PID. We will get blood cultures and a CBC as well. I will have Dr. Almonte look at her as well.
[2020-12-29 12:58] LABS: Basophils % 0.2 % (0.1-2.0); Eosinophils # 0.2 K/mm3 (0.0-0.4); Eosinophils % 1.5 % (0.1-12.0); Hematocrit 34.4 % (37.0-47.0); Hemoglobin 10.6 g/dL (12.2-16.2); Lymphocytes % 8.8 % (10-50); Mean Corpuscular HGB Conc 30.9 g/dL (31.8-35.4); Mean Corpuscular Hemoglobin 26.4 pg (27.0-31.2); Mean Corpuscular Volume 85.3 fl (81-99); Mean Platelet Volume 7.8 fl (7.4-10.4); Monocytes # 0.3 K/mm3 (0.1-1.0); Monocytes % 2.8 % (1.7-9.3); Neutrophils # 9.8 K/mm3 (1.8-7.8); Neutrophils % 86.7 % (37.0-80.0); Platelet Count 240 K/mm3 (142-424); Red Blood Count 4.03 M/mm3 (4.20-5.40); Red Cell Distribution Width 15.3 % (11.5-17.5); White Blood Count 11.3 K/mm3 (4.8-10.8)
[2020-12-29 13:04] LABS: MANUAL DIFFERENTIAL MANUAL DIFFERENTIAL (MANUAL DIFF)
[2020-12-29 13:13] LABS: Eosinophils % 1 % (0-3); Hypochromasia 1+; Lymphocytes % 13 % (10-50); Monocytes % 3 % (2-9); Neutrophils % 83 % (42-76); Platelet Estimate Normal; Total Cells Counted 100
[2020-12-29 14:24] LABS: Microscopic, Urine URINE MICROSCOPIC (MICROSCOPIC)
[2020-12-29 14:26] LABS: Appearance,Urine CLEAR (Clear); Blood, Urine 2+ (Negative); Color,Urine YELLOW (Yellow); Glucose,Urine (UA) Negative (Negative); Ketones,Urine TRACE (Negative); Leukocyte Esterase,Urine Negative (Negative); Nitrate,Urine Negative (Negative); PH,Urine 6.5 (5.0-8.5); Protein,Urine 2+ (Negative)
[2020-12-29 14:33] LABS: Bilirubin,Urine 1+ (Negative)
--- NOTE | 2020-12-29 16:27 | PC.NURSE ---
PT HAS RESTED WELL THIS SHIFT, VSS. AFEBRILE AT THIS TIME. LUNGS CTAB. HEART RATE REGULAR, NO EDEMA. ABD SOFT, NOT DISTENDED. MILDLY TENDER, MORE ON LEFT. BOWEL SOUNDS ACTIVE X 4 QUADS. PASSING FLATUS, NO BM. VOIDING WITHOUT DIFFICULTY. IV PATENT. INCISIONS C/D/I. PAIN WELL CONTROLLED WITH PRN MEDICATION. USING,INCENTIVE SPIROMETER, CALL LIGHT WITHIN REACH.
--- NOTE | 2020-12-29 16:34 | PC.NURSE ---
REPORT GIVEN TO Roel VAZQUEZ RN
[2020-12-29 16:53] LABS: WBC,Urine TNTC #/hpf (0-3)
[2020-12-29 16:54] LABS: RBC,Urine 20-50 #/hpf (0-3)
[2020-12-29 16:55] LABS: Calcium Oxalate Crystals,Urine 1+ /lpf
--- NOTE | 2020-12-29 17:41 | PC.NURSE ---
Pt. up walking in [place], tolerating well.
--- NOTE | 2020-12-29 18:20 | PC.NURSE ---
Pt. reports having a headache and feels like her fever is coming back. Pt. had drank water just prior to nurse arrival, Axillary temp noted to be at 99.9. Tylenol and Toradol given per EMAR. Will check oral temp in 15 minutes. Pt. denies further needs, will continue to monitor.
--- NOTE | 2020-12-29 18:36 | PC.NURSE ---
Dr. Almonte in room.
--- NOTE | 2020-12-29 18:52 | HMH.CONS ---
*Admission Date: 12/25/20 *Reason for consult:: fever *History of present illness: Patient presented to the emergency room with acute onset of left lower abdominal pain. She was found to have torsion of the left ovary. CT imaging is reviewed. She was taken to the OR by Dr. Escobedo. Operative note is reviewed. The ovary was found not to be viable after the torsion, and she underwent a laparoscopic salpingo- oophorectomy. Current antibiotic coverage includes IV Flagyl and doxycycline. Her white count is 11.3 but trending upward. Urinalysis showed TNTC white cells. Culture and urine culture are pending. Patient relays that she was in good health prior to her presentation. She has a remote history of tonsillectomy and PE tube placement. Patient relays a slight nonproductive cough. She has incentive spirometry at the bedside. Her incisions look clean. Blood cultures and urine cultures are pending. [facility] History Medical History: Denies:: Cancer, Diabetes Mellitus Type 1, Diabetes Mellitus Type 2, MRSA, Transient Ischemic Attacks (TIA) *Have you ever received a pneumonia vaccine?: No *Have you received a flu vaccine this season?: No Anesthesia experience/problems:: none Laterality Cases: Bilateral: Myringotomy (Ear Tubes), Tonsillectomy Other Surgeries: Yes: Other (ADENOIDECTOMY) Amputation: No Fractures: No - *Social History Last grade of school completed: Some college Smoking Status: Never smoker Alcohol Intake: current Alcohol Intake Frequency:: a few times a week Substance Use Type: denies use *Occupational Status:: employed Housing: house Household Members: family *Travel in the last 8 weeks: None Family Hx:: Stroke, Thyroid Disorder Review of Systems - Constitutional Reports anorexia, Reports fatigue, Reports fever(s) - Eyes Denies change in vision - ENT Reports sore throat, Denies headache(s) - *Cardiovascular Denies chest pain - *Respiratory Reports cough, Denies change in phlegm color - *Gastrointestinal Reports abdominal pain - *Genitourinary Reports pelvic pain, Denies painful urination - *Musculoskeletal Denies joint swelling - Integumentary/Breasts Denies yellowing of the skin - *Neurologic Denies abnormal speech, Denies headache(s) - Psychiatric Denies behavioral changes - Endocrine Denies rapid, pounding, or irregular heartbeat - Hematologic/Lymphatic Denies easy bleeding - Allergic/Immunologic Denies hives Meds Home Medications Medication Instructions Recorded Confirmed Type No Known Home Medications 12/26/20 12/26/20 History Allergies Allergy/AdvReac Type Severity Reaction Status Date / Time No Known Allergies Allergy Verified 12/26/20 18:34 Exam Vital signs and Labs for Last 24 Hours: Temp Pulse Resp BP Pulse Ox 98.4 F 100 H 17 99/50 L 96 12/29/20 16:00 12/29/20 16:00 12/29/20 16:00 12/29/20 16:00 12/29/20 16:00 Laboratory Results - last 24 hr 12/29/20 12:35: WBC 11.3 H, RBC 4.03 L, Hgb 10.6 L, Hct 34.4 L, MCV 85.3, MCH 26.4 L, MCHC 30.9 L, RDW 15.3, Plt Count 240, MPV 7.8, Neut % (Auto) 86.7 H, Lymph % (Auto) 8.8 L, [place] % (Auto) 2.8, Eos % (Auto) 1.5, Baso % (Auto) 0.2, Neut # (Auto) 9.8 H, Lymph # (Auto) 1.0, [place] # (Auto) 0.3, Eos # (Auto) 0.2, Baso # (Auto) 0.0, Total Counted 100, Neutrophils % (Manual) 83 H, Lymphocytes % (Manual) 13, Monocytes % (Manual) 3, Eosinophils % (Manual) 1, Platelet Estimate Normal, Hypochromasia 1+ 12/29/20 14:00: Urine Color Yellow, Urine Appearance Clear, Urine pH 6.5, Ur Specific [place] 1.020, Urine Protein 2+, Urine Glucose (UA) Negative, Urine Ketones Trace, Urine Blood 2+, Urine Nitrate Negative, Urine Bilirubin 1+ A, Urine Urobilinogen 1.0, Ur Leukocyte Esterase Negative, Urine RBC 20-50, Urine WBC Tntc, Ur Squamous Epith Cells None, Calcium Oxalate Crystal 1+, Urine Bacteria None I & O for Last 24 hours: Intake & Output 12/26/20 12/27/20 12/28/20 12/29/20 23:59 23:59 23:59 23
--- NOTE | 2020-12-29 19:12 | XR_ITS ---
PROCEDURE INFORMATION: Exam: XR Chest Exam date and time: 12/29/2020 7:12 PM Age: 25 years old Clinical indication: Patient HX: Patient had ovarian torsion surgery today, she has a fever this evening. TECHNIQUE: Imaging protocol: XR of the chest. Views: 1 view. Total images: 1 COMPARISON: CR (CHEST PA, CHEST, CHEST PA) 11/17/2018 6:09 PM FINDINGS: Lungs: Low lung volumes. Pulmonary vasculature grossly normal. Patchy alveolar opacity in the left basilar region, atelectasis versus pneumonia. Pleural spaces: No pleural effusion. No pneumothorax. Heart/Mediastinum: Heart size normal. No tracheal/mediastinal shift. Bones/joints: No acute osseous abnormalities are identified. IMPRESSION: 1. Low lung volumes. 2. Patchy atelectasis or pneumonia in the left base.
--- NOTE | 2020-12-29 20:20 | PC.NURSE ---
PT EDUCATED ON USE OF INCENTIVE SPIROMETER AND IMPORTANCE TO EXPAND LUNGS WELL IMPORTANCE OF AMBULATING TO EXPAND LUNGS AND PREVENT WORSENING PNA, PT VERBALIZES UNDERSTANDING AT THIS TIME
--- NOTE | 2020-12-29 20:40 | PC.NURSE ---
20G IV REMOVED FROM PT LEFT FOREARM D/T INFILTRATION, PT TOLERATED WELL, COVERED SITE WITH 2X2 AND COBAN
[2020-12-30] VITALS (15 sets, daily range): BP systolic 87–124; BP diastolic 46–67; PULSE 90–110; RESP 18–20; TEMP 36.6–38.1; O2SAT 94–98
--- NOTE | 2020-12-30 05:45 | PC.NURSE ---
pt has rested well throughout shift, pain has been managed with patient rating pain only 3-5 with nedication see emar, pt had temperature of 100.5 orally this am which was treated with prn tylenol, pt currently afrebrile, continue to encourage incentive spirometer use on pts bedside table, vss, no acute distress noted will continue to monitor at this time
--- NOTE | 2020-12-30 07:02 | PC.NURSE ---
report given to Tavo Medellin RN
[2020-12-30 07:12] LABS: Basophils % 0.3 % (0.1-2.0); Eosinophils # 0.2 K/mm3 (0.0-0.4); Eosinophils % 1.6 % (0.1-12.0); Hematocrit 31.2 % (37.0-47.0); Mean Corpuscular HGB Conc 31.9 g/dL (31.8-35.4); Mean Corpuscular Hemoglobin 26.2 pg (27.0-31.2); Mean Corpuscular Volume 82.1 fl (81-99); Mean Platelet Volume 8.7 fl (7.4-10.4); Monocytes # 0.6 K/mm3 (0.1-1.0); Monocytes % 4.1 % (1.7-9.3); Neutrophils # 12.5 K/mm3 (1.8-7.8); Neutrophils % 81.1 % (37.0-80.0); Platelet Count 267 K/mm3 (142-424); Red Cell Distribution Width 15.5 % (11.5-17.5); White Blood Count 15.5 K/mm3 (4.8-10.8)
[2020-12-30 07:15] LABS: Chloride 107 mmol/L (98-107); MANUAL DIFFERENTIAL MANUAL DIFFERENTIAL (MANUAL DIFF); Sodium 140 mmol/L (136-145)
[2020-12-30 07:16] LABS: Potassium 3.7 mmoL/L (3.5-5.1)
[2020-12-30 07:18] LABS: Alanine Aminotransferase 8 U/L (12-78); Albumin Level 3.2 g/dl (3.5-5.0); Albumin/Globulin Ratio 1.1 (1.1-1.8); Alkaline Phosphatase 77 U/L (38-126); Anion Gap 10.7 mEq/L (5-15); Aspartate Amino Transferase 14 U/L (14-36); Bilirubin,Total 0.5 mg/dl (0.2-1.3); Blood Urea Nitrogen 7 mg/dl (7-17); Carbon Dioxide 26 mmol/L (22.0-30.0); Creatinine Clearance Estimated 204 mL/min (50-200); Estimated Glomerular Filt Rate 89 ml/min (>60); GFR (African American) 108 ML/MIN (>60); Globulin 2.9 g/dL (1.3-3.2); Total Protein,Serum 6.1 g/dl (6.3-8.2)
[2020-12-30 07:19] LABS: Calcium 8.1 mg/dl (8.4-10.2); Glucose 107 mg/dl (74-100)
--- NOTE | 2020-12-30 07:35 | PC.NURSE ---
Pt having a hard time getting out of bed and sitting up this am. Told patient that we needed to walk today and use incentive ashwini while awake. pt agreeable
[2020-12-30 08:26] LABS: Eosinophils % 2 % (0-3); Lymphocytes % 12 % (10-50); Monocytes % 2 % (2-9); Neutrophils % 84 % (42-76); Total Cells Counted 100
[2020-12-30 08:27] LABS: Platelet Estimate Normal; RBC Morphology Normal
--- NOTE | 2020-12-30 08:30 | PC.NURSE ---
dr. garibay at bedside.
--- NOTE | 2020-12-30 08:30 | XR_ITS ---
PROCEDURE: XR CHEST 2V CLINICAL HISTORY: fever COMPARISON: 12/29/2020 FINDINGS: There is bandlike atelectasis versus infiltrate in the left base with patchy mild right basilar atelectasis. No pleural effusion or pneumothorax. Heart is not enlarged. No acute bony abnormality. IMPRESSION: Bandlike atelectasis versus infiltrate in the left lower lobe with patchy mild right basilar atelectasis. Dictated by: Vladimir Matthews MD 12/30/2020 09:17 Vladimir Matthews MD in [place] 12/30/2020 09:17
--- NOTE | 2020-12-30 08:36 | HMH.ACPN2 ---
Internal Medicine - PN: Subj *Date: 12/30/20 *Time: 08:36 Interval history: She had a low-grade fever again last night of 100 degrees. She says that she has some increased pain in the left lower quadrant. She says it hurts more when she is up walking. She had a chest x-ray that showed some atelectasis versus early pneumonia. She had a urinalysis that shows likely urinary tract infection. She is taken doxycycline as well as Flagyl. We have also started her on Rocephin. Exam Vital signs and Labs for Last 24 Hours: Temp Pulse Resp BP Pulse Ox 98.3 F 102 H 20 114/62 95 12/30/20 07:30 12/30/20 07:30 12/30/20 07:35 12/30/20 07:30 12/30/20 07:35 Laboratory Results - last 24 hr 12/29/20 12:35: WBC 11.3 H, RBC 4.03 L, Hgb 10.6 L, Hct 34.4 L, MCV 85.3, MCH 26.4 L, MCHC 30.9 L, RDW 15.3, Plt Count 240, MPV 7.8, Neut % (Auto) 86.7 H, Lymph % (Auto) 8.8 L, [place] % (Auto) 2.8, Eos % (Auto) 1.5, Baso % (Auto) 0.2, Neut # (Auto) 9.8 H, Lymph # (Auto) 1.0, [place] # (Auto) 0.3, Eos # (Auto) 0.2, Baso # (Auto) 0.0, Total Counted 100, Neutrophils % (Manual) 83 H, Lymphocytes % (Manual) 13, Monocytes % (Manual) 3, Eosinophils % (Manual) 1, Platelet Estimate Normal, Hypochromasia 1+ 12/29/20 14:00: Urine Color Yellow, Urine Appearance Clear, Urine pH 6.5, Ur Specific [place] 1.020, Urine Protein 2+, Urine Glucose (UA) Negative, Urine Ketones Trace, Urine Blood 2+, Urine Nitrate Negative, Urine Bilirubin 1+ A, Urine Urobilinogen 1.0, Ur Leukocyte Esterase Negative, Urine RBC 20-50, Urine WBC Tntc, Ur Squamous Epith Cells None, Calcium Oxalate Crystal 1+, Urine Bacteria None 12/30/20 07:02: Sodium 140, Potassium 3.7, Chloride 107, Carbon Dioxide 26, Anion Gap 10.7, BUN 7 D, Creatinine 0.80, Estimated Creat Clear 204, Estimated GFR 89, Est GFR ( Amer) 108, Glucose 107 H, Calcium 8.1 L, Total Bilirubin 0.5, AST 14, ALT 8 L, Alkaline Phosphatase 77, Total Protein 6.1 L, Albumin 3.2 L, Globulin 2.9, Albumin/Globulin Ratio 1.1 12/30/20 07:02: WBC 15.5 H D, RBC 3.80 L, Hgb 10.0 L, Hct 31.2 L, MCV 82.1, MCH 26.2 L, MCHC 31.9, RDW 15.5, Plt Count 267, MPV 8.7, Neut % (Auto) 81.1 H, Lymph % (Auto) 13.0, [place] % (Auto) 4.1, Eos % (Auto) 1.6, Baso % (Auto) 0.3, Neut # (Auto) 12.5 H, Lymph # (Auto) 2.0, [place] # (Auto) 0.6, Eos # (Auto) 0.2, Baso # (Auto) 0.0, Total Counted 100, Neutrophils % (Manual) 84 H, Lymphocytes % (Manual) 12, Monocytes % (Manual) 2, Eosinophils % (Manual) 2, Platelet Estimate Normal, RBC Morphology Normal I & O for Last 24 hours: Intake & Output 12/27/20 12/28/20 12/29/20 12/30/20 11:59 11:59 11:59 11:59 Intake Total 2900 / 2900 3704 / 3704 0 / 0 Output Total 25 / 3300 / 3300 300 / 300 300 / 300 Balance 2875 / 2875 404 / 404 -300 / -300 -300 / -300 Weight 260 lb - Constitutional no acute distress, obese - *Routine HEENT Exam Head: Present: normocephalic Eye: Present: EOMI, PERRL ENT: Present: mucous membranes moist - *Routine Neck Exam Present: supple. Absent: lymphadenopathy - *Routine Respiratory Exam Present: CTA bilaterally - *Routine Cardiovascular Exam Present: RRR - *Routine Abdominal Exam Present: soft, normoactive bowel sounds. Absent: tenderness Comments: Her incisions are clean and dry. There is no evidence of infection. She was tender over the sigmoid colon on the left side in the left lower quadrant. Assessment and Plan (1) Hemorrhagic cyst of left ovary Status: Acute Category: Medical Code(s): N83.202 - Unspecified ovarian cyst, left side (2) Intractable abdominal pain Status: Acute Category: Medical Code(s): R10.9 - Unspecified abdominal pain (3) Fallopian tube abscess Status: Acute Category: Medical Code(s): N70.91 - Salpingitis, unspecified (4) Torsion of ovary, ovarian pedicle and fallopian tube Status: Acute Category: Medical Code(s): N83.53 - Torsion of ovary, ovarian pedicle and fallopian tube (5) Fever Status: Acute Category: Medical
--- NOTE | 2020-12-30 09:12 | PC.NURSE ---
PT BACK TO ROOM FROM X RAY
--- NOTE | 2020-12-30 11:56 | HMH.ACPN2 ---
Internal Medicine - PN: Subj *Date: 12/30/20 *Time: 09:18 Interval history: pt had a fever over night Exam Vital signs and Labs for Last 24 Hours: Temp Pulse Resp BP Pulse Ox 98.3 F 102 H 20 114/62 95 12/30/20 07:30 12/30/20 07:30 12/30/20 07:35 12/30/20 07:30 12/30/20 07:35 Laboratory Results - last 24 hr 12/29/20 12:35: WBC 11.3 H, RBC 4.03 L, Hgb 10.6 L, Hct 34.4 L, MCV 85.3, MCH 26.4 L, MCHC 30.9 L, RDW 15.3, Plt Count 240, MPV 7.8, Neut % (Auto) 86.7 H, Lymph % (Auto) 8.8 L, [place] % (Auto) 2.8, Eos % (Auto) 1.5, Baso % (Auto) 0.2, Neut # (Auto) 9.8 H, Lymph # (Auto) 1.0, [place] # (Auto) 0.3, Eos # (Auto) 0.2, Baso # (Auto) 0.0, Total Counted 100, Neutrophils % (Manual) 83 H, Lymphocytes % (Manual) 13, Monocytes % (Manual) 3, Eosinophils % (Manual) 1, Platelet Estimate Normal, Hypochromasia 1+ 12/29/20 14:00: Urine Color Yellow, Urine Appearance Clear, Urine pH 6.5, Ur Specific [place] 1.020, Urine Protein 2+, Urine Glucose (UA) Negative, Urine Ketones Trace, Urine Blood 2+, Urine Nitrate Negative, Urine Bilirubin 1+ A, Urine Urobilinogen 1.0, Ur Leukocyte Esterase Negative, Urine RBC 20-50, Urine WBC Tntc, Ur Squamous Epith Cells None, Calcium Oxalate Crystal 1+, Urine Bacteria None 12/30/20 07:02: Sodium 140, Potassium 3.7, Chloride 107, Carbon Dioxide 26, Anion Gap 10.7, BUN 7 D, Creatinine 0.80, Estimated Creat Clear 204, Estimated GFR 89, Est GFR ( Amer) 108, Glucose 107 H, Calcium 8.1 L, Total Bilirubin 0.5, AST 14, ALT 8 L, Alkaline Phosphatase 77, Total Protein 6.1 L, Albumin 3.2 L, Globulin 2.9, Albumin/Globulin Ratio 1.1 12/30/20 07:02: WBC 15.5 H D, RBC 3.80 L, Hgb 10.0 L, Hct 31.2 L, MCV 82.1, MCH 26.2 L, MCHC 31.9, RDW 15.5, Plt Count 267, MPV 8.7, Neut % (Auto) 81.1 H, Lymph % (Auto) 13.0, [place] % (Auto) 4.1, Eos % (Auto) 1.6, Baso % (Auto) 0.3, Neut # (Auto) 12.5 H, Lymph # (Auto) 2.0, [place] # (Auto) 0.6, Eos # (Auto) 0.2, Baso # (Auto) 0.0, Total Counted 100, Neutrophils % (Manual) 84 H, Lymphocytes % (Manual) 12, Monocytes % (Manual) 2, Eosinophils % (Manual) 2, Platelet Estimate Normal, RBC Morphology Normal I & O for Last 24 hours: Intake & Output 12/27/20 12/28/20 12/29/20 12/30/20 11:59 11:59 11:59 11:59 Intake Total 2900 / 2900 3704 / 3704 0 / 0 Output Total 25 / 25 3300 / 3300 300 / 300 300 / 300 Balance 2875 / 2875 404 / 404 -300 / -300 -300 / -300 Weight 260 lb - Constitutional no acute distress - *Routine HEENT Exam Head: Present: normocephalic Eye: Present: PERRL ENT: Present: mucous membranes moist - *Routine Neck Exam Present: supple. Absent: lymphadenopathy - *Routine Respiratory Exam Present: CTA bilaterally - *Routine Cardiovascular Exam Present: RRR - *Routine Abdominal Exam Present: soft, normoactive bowel sounds. Absent: tenderness Comments: incisions clean dry no redness or drainage - *Routine Extremities Exam Present: normal capillary refill. Absent: cyanosis, clubbing, edema - *Routine Skin Exam Present: warm. Absent: rash - *Routine Neurological Exam Present: alert, oriented X3 - Routine Psychiatric Exam Present: normal affect Assessment and Plan (1) Hemorrhagic cyst of left ovary Status: Acute Category: Medical Code(s): N83.202 - Unspecified ovarian cyst, left side (2) Intractable abdominal pain Status: Acute Category: Medical Code(s): R10.9 - Unspecified abdominal pain (3) Fallopian tube abscess Status: Acute Category: Medical Code(s): N70.91 - Salpingitis, unspecified (4) Torsion of ovary, ovarian pedicle and fallopian tube Status: Acute Category: Medical Code(s): N83.53 - Torsion of ovary, ovarian pedicle and fallopian tube (5) Fever Status: Acute Category: Medical Code(s): R50.9 - Fever, unspecified (6) UTI (urinary tract infection) Status: Acute Category: Medical Code(s): N39.0 - Urinary tract infection, site not specified - Assessment and plan all Dx Assessment and Plan
--- NOTE | 2020-12-30 14:30 | PC.NURSE ---
sPOKE WITH CONRAD MOSLEY REPORTED TO GO AHEAD TO GET LACTIC AND DO BOLUS.
--- NOTE | 2020-12-30 14:32 | PC.NURSE ---
LAB AT BED FOR STAT LACTIC ACID
[2020-12-30 15:08] LABS: Lactic Acid 1.3 mmol/L (0.7-2.1)
--- NOTE | 2020-12-30 15:15 | PC.NURSE ---
sPOKE WITH Ginger ALMEIDA REGARDING PATIENT. Ginger ALMEIDA RN SPEAKING WITH Emilee DIGGS AT THIS TIME. REPORTED ON PATIENTS VITALS AND PRESENTATION. Ginger ALMEIDA STATED THAT DINAH REPORTED TOGO AHEAD AND START BOLUS. R/V
--- NOTE | 2020-12-30 15:28 | PC.NURSE ---
BOLUS INITIATED AT THIS TIME PER SEPSIS PROTOCOL. PATIENT TO GET 1850ML TOTAL OVER 2 HOURS
--- NOTE | 2020-12-30 16:15 | PC.NURSE ---
REASSESSMENT DONE AT THIS TIME. LUNGS REMAINS CLEAR AND BOWELS HYPOACTIVE. REPORTS PAIN A 3/10 BUT DECLINES NEED FOR MEDS RIGHT NOW. NO BOWEL MOVEMENT AT THIS TIME, BUT PATIENT REPORTS PASSING GAS. NO EDEMA NOTED. PULSES 2+. PT IS PALE IN FACE. REPORTED TIREDNESS. PT IS RECEIVING SECOND FLUID BOLUS TO EQUAL 1850 ML TOTAL PER SEPSIS PROTOCOL. LOW TRANSVERSE INCISION REMAINS OPEN TO AIR AND INCISION TO LEFT ABD AND UMBILICAL OPEN TO AIR. NO S.S OF INFECTION. CLEANSED PER PROTOCOL AND EDUCATION PROVIDED. PT REPORTS SHE IS GOING TO SHOWER AFTER IV GETS FINISHED AND THEN WALK. NO OTHER NEEDS VOICED. WILL CONTINUE TO CLOSELY MONITOR PATIENT
--- NOTE | 2020-12-30 17:30 | PC.NURSE ---
BOLUS FINISHED AT THIS TIME
--- NOTE | 2020-12-30 18:20 | PC.NURSE ---
PT HAD EMESIS EPISODE AT THIS TIME. MEDS GIVEN PER MAR. WILL CONTINUE TO MONITOR.
--- NOTE | 2020-12-30 20:15 | PC.NURSE ---
AFTER DOING PT ASSESSMENT,SHE DENIES ANY MORE NAUSEA AND WAS ABLE TO EAT A RICE KRISPIE TREAT,SHE ASKED FOR SOME PEANUT BUTTER AND CRACKERS,THIS PROVIDED.PT WAS ABLE TO ACHIEVE 1500ML ON INCENTIVE SPIROMETER,ENCOURAGED PT TO USE INCENTIVE WHILE AWAKE,PT AGREEABLE,LUNGS WAS CLEAR WITH ASSESSMENT
--- NOTE | 2020-12-30 22:15 | PC.NURSE ---
Addendum entered by Shreya Ferreira RN 12/31/20 01:06: PT VOIDED 100ML OF DARK YELLOW URINE. Original Note: PT WAS NEEDING TO GO TO BATHROOM,ANTIBIOTIC HAD INFUSED AND THIS WAS DISCONNECTED AND IV FLUSHED WITHOUT DIFF.WITH GETTING UP AND MOVING,PT RATED HER PAIN ABOUT A 5-6 ON SCALE OF 0-10,MEDICATED WITH OXYCODONE 10MG PO.NO OTHER NEEDS OR CONCERNS VOICED
[2020-12-31] VITALS (8 sets, daily range): BP systolic 88–119; BP diastolic 50–70; PULSE 91–101; RESP 18; TEMP 36.6–37.2; O2SAT 94–100
--- NOTE | 2020-12-31 00:10 | PC.NURSE ---
UPON ENTERING ROOM,PT WAS SOUND ASLEEP,EASILY AROUSED,V/S OBTAINED AND PT WAS AFIBRILE,REPORTS SHE HAS A HEADACHE,RATED IT A 3-4.OFFERED SOME TYLENOL WITH HER AIDA.TORADOL AND SHE SAID SHE WOULD WAIT AND SEE IF TORADOL WOULD HELP,SHE SAID SHE THOUGHT IT WAS FROM HER SLEEPING SO SOUND,LUNGS CLEAR TO ASCULTATE ALL FRONT,SAT LEVEL ON RA WAS 98%
--- NOTE | 2020-12-31 02:30 | PC.NURSE ---
AFTER STARTING PT DOXYCYCLINE SHE RANG OUT AND SAID HER IV WAS HURTING,SITE UNREMARKABLE,NO S/S OF INFILTRATE OR LEAKING,DECREASED RATE A BIT TO SEE IF THAT WOULD HELP AND PT SAID IT DID.WILL CONTINUE TO MONITOR
--- NOTE | 2020-12-31 05:03 | PC.NURSE ---
PT HAS SLEPT OFF AND ON,SHE HAS SLEPT SOUND.CONCIDERING GETTING SEVERAL ANTIBIOTICS,LUNGS CLEAR,RESP EVEN AND UNLABORED,SAT LEVEL ON RA 96%,PT AFIBRILE 98.7,HR 94-101,B/P THIS MORNING BEING SUPINE WAS 88/53,AFTER PT WENT TO BR B/P WAS 103/57 SITTING UP,PT DENIES ANY LIGHTHEADNESS,SHE HAD REPORTED SHE HAS A GORDILLO AND WANTED SOME TYLENOLWHICH WAS GIVEN.DOXYCYCLINE COULD BE GIVING HER A GORDILLO.PT HAS ONLY WENT 200ML THIS SHIFT AND IT IS TOO IN COLOR,LOW TRANSVERSE INCISION C,D,I NO DRAINAGE OR SIGN OF INFECTION,NO DRAINAGE FROM LAP SITES.PT DENIES PASSING ANY FLATUS,WILL GIVE PT HER FLAGYL AROUND 6 SINCE HER LAST ANTIBIOTIC HAD TO GO AT A SLOWER RATE BECAUSE IT HURT HER IV SITE,SITE UNREMARKABLE ,FLUSHED WITHOUT DIFF.
--- NOTE | 2020-12-31 06:16 | PC.NURSE ---
LAB HERE FOR BLOOD
--- NOTE | 2020-12-31 08:13 | PC.NURSE ---
0805 Assisted pt out of the bed and to the bathroom, tolerated activity well. Linens changed by staff while pt up to the shower.
--- NOTE | 2020-12-31 08:45 | HMH.ACPN2 ---
Internal Medicine - PN: Subj *Date: 12/31/20 *Time: 08:45 Interval history: looks better -00b in chair - no fever last pm- no cough but has abn u/a - on abx Exam Vital signs and Labs for Last 24 Hours: Temp Pulse Resp BP Pulse Ox 98.5 F 91 H 18 112/61 94 L 12/31/20 08:00 12/31/20 08:00 12/31/20 08:00 12/31/20 08:00 12/31/20 08:00 Laboratory Results - last 24 hr 12/30/20 14:35: Lactate 1.3 I & O for Last 24 hours: Intake & Output 12/28/20 12/29/20 12/30/20 12/31/20 11:59 11:59 11:59 11:59 Intake Total 3704 / 3704 0 / 0 Output Total 3300 / 3300 300 / 300 300 / 300 1000 / 1000 Balance 404 / 404 -300 / -300 -300 / -300 -1000 / -1000 Microbiology Reports for the Last 24 Hours: Microbiology 12/29/20 14:00 Urine,Clean Catch Urine Culture - Preliminary NO GROWTH AFTER 24 HOURS - Constitutional no acute distress - *Routine HEENT Exam Head: Present: normocephalic Eye: Present: EOMI, PERRL ENT: Present: mucous membranes dry - *Routine Neck Exam Present: supple - *Routine Respiratory Exam Absent: respiratory distress - *Routine Cardiovascular Exam Present: RRR - *Routine Abdominal Exam Present: soft - *Routine Extremities Exam Present: full ROM - *Routine Skin Exam Present: intact - *Routine Neurological Exam Present: alert - Routine Psychiatric Exam Present: normal affect Assessment and Plan (1) Hemorrhagic cyst of left ovary Status: Acute Category: Medical Code(s): N83.202 - Unspecified ovarian cyst, left side (2) Intractable abdominal pain Status: Acute Category: Medical Code(s): R10.9 - Unspecified abdominal pain (3) Fallopian tube abscess Status: Acute Category: Medical Code(s): N70.91 - Salpingitis, unspecified (4) Torsion of ovary, ovarian pedicle and fallopian tube Status: Acute Category: Medical Code(s): N83.53 - Torsion of ovary, ovarian pedicle and fallopian tube (5) Fever Status: Acute Category: Medical Code(s): R50.9 - Fever, unspecified (6) UTI (urinary tract infection) Status: Acute Category: Medical Code(s): N39.0 - Urinary tract infection, site not specified (7) Obesity Status: Acute Qualifiers: Obesity type: due to excess calories Obesity classification: adult class 3 (BMI >= 40) Serious obesity comorbidity presence: with serious comorbidity Body mass index: BMI 40.0-44.9 Qualified Code(s): E66.01 - Morbid (severe) obesity due to excess calories; Z68.41 - Body mass index [BMI]40.0-44.9, adult Category: Medical Code(s): E66.9 - Obesity, unspecified
[2020-12-31 09:02] LABS: Basophils % 0.3 % (0.1-2.0); Eosinophils # 0.4 K/mm3 (0.0-0.4); Eosinophils % 2.3 % (0.1-12.0); Hematocrit 29.6 % (37.0-47.0); Hemoglobin 9.6 g/dL (12.2-16.2); Lymphocytes # 1.8 K/mm3 (0.7-4.5); Lymphocytes % 11.7 % (10-50); Mean Corpuscular HGB Conc 32.4 g/dL (31.8-35.4); Mean Corpuscular Hemoglobin 26.6 pg (27.0-31.2); Mean Corpuscular Volume 82.1 fl (81-99); Mean Platelet Volume 8.6 fl (7.4-10.4); Monocytes # 0.7 K/mm3 (0.1-1.0); Monocytes % 4.6 % (1.7-9.3); Neutrophils # 12.5 K/mm3 (1.8-7.8); Neutrophils % 81.2 % (37.0-80.0); Platelet Count 286 K/mm3 (142-424); Red Cell Distribution Width 15.5 % (11.5-17.5); White Blood Count 15.4 K/mm3 (4.8-10.8)
[2020-12-31 09:03] LABS: MANUAL DIFFERENTIAL MANUAL DIFFERENTIAL (MANUAL DIFF)
--- NOTE | 2020-12-31 09:29 | HMH.ACPN2 ---
Internal Medicine - PN: Subj *Date: 12/31/20 *Time: 09:29 Interval history: She is doing a little better this morning. Her blood counts are stable. She really has not been drinking very much and her urine is quite concentrated. She still has not been eating much. She has some nausea. She has not had a bowel movement yet. Exam Vital signs and Labs for Last 24 Hours: Temp Pulse Resp BP Pulse Ox 98.5 F 91 H 18 112/61 94 L 12/31/20 08:00 12/31/20 08:00 12/31/20 08:00 12/31/20 08:00 12/31/20 08:00 Laboratory Results - last 24 hr 12/30/20 14:35: Lactate 1.3 12/31/20 08:35: WBC 15.4 H, RBC 3.60 L, Hgb 9.6 L, Hct 29.6 L, MCV 82.1, MCH 26.6 L, MCHC 32.4, RDW 15.5, Plt Count 286, MPV 8.6, Neut % (Auto) 81.2 H, Lymph % (Auto) 11.7, [place] % (Auto) 4.6, Eos % (Auto) 2.3, Baso % (Auto) 0.3, Neut # (Auto) 12.5 H, Lymph # (Auto) 1.8, [place] # (Auto) 0.7, Eos # (Auto) 0.4, Baso # (Auto) 0.0 I & O for Last 24 hours: Intake & Output 12/28/20 12/29/20 12/30/20 12/31/20 11:59 11:59 11:59 11:59 Intake Total 3704 / 3704 0 / 0 Output Total 3300 / 3300 300 / 300 300 / 300 1000 / 1000 Balance 404 / 404 -300 / -300 -300 / -300 -1000 / -1000 Microbiology Reports for the Last 24 Hours: Microbiology 12/29/20 14:00 Urine,Clean Catch Urine Culture - Preliminary NO GROWTH AFTER 24 HOURS - Constitutional no acute distress - *Routine HEENT Exam Head: Present: normocephalic Eye: Present: EOMI, PERRL ENT: Present: mucous membranes moist - *Routine Neck Exam Present: supple. Absent: lymphadenopathy - *Routine Respiratory Exam Present: CTA bilaterally - *Routine Cardiovascular Exam Present: RRR (Yeah) - *Routine Abdominal Exam Present: soft ( good), normoactive bowel sounds. Absent: tenderness Comments: Her incision is clean and dry Assessment and Plan (1) Hemorrhagic cyst of left ovary Status: Acute Category: Medical Code(s): N83.202 - Unspecified ovarian cyst, left side (2) Intractable abdominal pain Status: Acute Category: Medical Code(s): R10.9 - Unspecified abdominal pain (3) Fallopian tube abscess Status: Acute Category: Medical Code(s): N70.91 - Salpingitis, unspecified (4) Torsion of ovary, ovarian pedicle and fallopian tube Status: Acute Category: Medical Code(s): N83.53 - Torsion of ovary, ovarian pedicle and fallopian tube (5) Fever Status: Acute Category: Medical Code(s): R50.9 - Fever, unspecified (6) UTI (urinary tract infection) Status: Acute Category: Medical Code(s): N39.0 - Urinary tract infection, site not specified (7) Obesity Status: Acute Qualifiers: Obesity type: due to excess calories Obesity classification: adult class 3 (BMI >= 40) Serious obesity comorbidity presence: with serious comorbidity Body mass index: BMI 40.0-44.9 Qualified Code(s): E66.01 - Morbid (severe) obesity due to excess calories; Z68.41 - Body mass index [BMI]40.0-44.9, adult Category: Medical Code(s): E66.9 - Obesity, unspecified - Assessment and plan all Dx Assessment and Plan for all problems:: We will plan to increase her fluids today. I encouraged her to drink more. She has some nausea so we will go ahead and use a scopolamine patch. I suspect that some of the medication she is on may be making her nauseous. We will give her a Dulcolax suppository later today. She is still not had a bowel movement. She does have some bloating and some left-sided discomfort. Otherwise she is doing better. We will plan to keep her for another couple of days.
[2020-12-31 09:31] LABS: Eosinophils % 3 % (0-3); Lymphocytes % 15 % (10-50); Monocytes % 5 % (2-9); Neutrophils % 77 % (42-76); Platelet Estimate Normal; RBC Morphology Normal; Total Cells Counted 100
--- NOTE | 2020-12-31 12:52 | PC.NURSE ---
1200 3 incision sites noted and cleaned with hibiclens per MD order, tolerated well by pt. Lap site to umbilicus and LLQ ACTIVE DIRECTORY SPECIALIST and without any s/s infection. LTV incision LEVI and without any s/s infection. Surgical site infection and incision care education provided to pt.
--- NOTE | 2020-12-31 14:41 | PC.NURSE ---
1400 Pt ambulating in hallways with staff walking alongside, tolerating activity well. Pt reports passing flatus and was able to void without any difficulty. Pt noted to be drinking more water with persistent encouragement from RN.
--- NOTE | 2020-12-31 16:43 | PC.NURSE ---
1630 RN reassessment completed at this time. Pt has been up to the chair x2 this shift and ambulated in the hallway once. Pt has tolerated activity well and has been encouraged to walk again this shift in the hallway. Pt medicated with PRN oxycodone x1 this shift for c/o headache. Pt reports that she has a headache at this time but it is a 3 on a 0-10 scale and she does not require medication. Pt has not c/o any incision pain. Lung sounds CTA, no SOA, no cough noted. Abd soft and nontender with BS active in all quads. 2 lap sites and LTV surgical site PERFORMANCE ARCHITECT, C/D/I with no s/s infection. Pt reports passing flatus this shift, no BM. Pt reports that nausea has improved since scopolamine patch was placed. Pt continues to report decreased appetite, did tolerate a bag of chips and some vegetables well at lunch. Pt has been encouraged to increase water intake, has not been compliant. Pt reports I am trying. Incentive spirometer correctly demonstrated by pt, able to achieve 1500 ml. RN encouraged continued use of IS. Pt has c/o discomfort with IV abx infusion. IV checked and flushes well but was noted to be leaking. IV secured and redressed by RN, will continue to monitor. Pt denies any issues with IV when NS is infusing. Pt has been afebrile this shift, VSS. Call light within reach, room darkened, will continue to monitor.
--- NOTE | 2020-12-31 17:05 | PC.NURSE ---
1705 Visitor called out, reports pt getting sick. Approx 100 ml bright green vomit noted in emesis bag and some on pt. Assisted pt with cleaning up, changing gown and linens. Will give zofran per EMAR and notify .
--- NOTE | 2020-12-31 17:15 | XR_ITS ---
PROCEDURE INFORMATION: Exam: XR Complete Acute Abdomen Series Including Chest Exam date and time: 12/31/2020 5:15 PM Age: 25 years old Clinical indication: Constipation and other: Possible ileus; Abdominal pain; Prior surgery; Surgery date: 3-7 days post-operative; Surgery type: Right cyst/ovary/tube removed 12/27/2020; Patient HX: Possible ileus---. Constipation after surgery on 12/27/20; Additional info: Rule out ileus TECHNIQUE: Imaging protocol: XR complete acute abdomen series, including 2 or more views of the abdomen and a single view chest. COMPARISON: CR XR CHEST 2V 12/30/2020 8:53 AM FINDINGS: Tubes, catheters and devices: Surgical clips are present overlying the left upper pelvis. Lungs: Atelectasis and/or infiltrative changes noted within the left lung base. Pleural spaces: Normal. No pleural effusions. No pneumothorax. Heart/Mediastinum: Normal. No cardiomegaly. Gastrointestinal tract: Gaseous distention of several loops of bowel present consistent with ileus. Intraperitoneal space: Normal. No free air. Bones/joints: Normal. No acute fracture. Soft tissues: Normal. IMPRESSION: 1. Gaseous distention of several loops of bowel present consistent with ileus. 2. Atelectasis and/or infiltrative changes noted within the left lung base.
--- NOTE | 2020-12-31 17:38 | PC.NURSE ---
1728 Pt leaving with radiology for xray.
--- NOTE | 2020-12-31 17:45 | PC.NURSE ---
Pt returned to department.
[2020-12-31 18:24] LABS: Microscopic, Urine URINE MICROSCOPIC (MICROSCOPIC)
[2020-12-31 18:42] LABS: Appearance,Urine CLEAR (Clear); Bilirubin,Urine Negative (Negative); Blood, Urine Negative (Negative); Color,Urine DK YELLOW (Yellow); Glucose,Urine (UA) Negative (Negative); Ketones,Urine Negative (Negative); Leukocyte Esterase,Urine Negative (Negative); Nitrate,Urine Negative (Negative); Protein,Urine 3+ (Negative); Specific Gravity, Urine >= 1.030 (1.005-1.030); Urobilinogen,Urine 0.2 EU/dl (0.2)
[2020-12-31 18:43] LABS: Bacteria,Urine 1+ /lpf; Mucus,Urine 1+ /lpf
--- NOTE | 2020-12-31 20:35 | PC.NURSE ---
PT IV BOLUS ALMOST IN LACKS 100,STAFF HAD TO TAKE IT OFF PRESSURE BAG EARLIER BECAUSE IT WAS HURTING PT ARM GOING TIN TO FAST,WITH HANGING PT ROCEPHIN,PT PT BACK ON PUMP,NS AT 150ML/HR.PT DRANK A CONTAINER OF APPLE JUICE WITH HER PILLS(FLAGYL AND SENNA).PT WANTED TO JUST TAKE THE STOOL SOFTENER NOW AND WAIT AND TAKE A DULCOLAX SUPP.TOMORROW,ENCOURAGED PT TO DRINK PLENTY OF WATER,TOLD HER SHE NEEDED TO BE UP AND ACTIVE FOR HER BOWELS TO MOVE GOOD,PT V/U.SHE WAS ABLE TO ACHIEVE 1500ML ON INCENTIVE SPIROMETER.WILL CONTINUE TO HAVE PT USE IT.
--- NOTE | 2020-12-31 23:13 | PC.NURSE ---
WITH HANGING ANOTHER BAG OF NS,ASKED PT IF SHE NEEDED TO GO TO BATHROOM AND SHE SAID SHE COULD PROBABLY GO.ASSISTED PT WITH IV POLE TO BATHROOM WERE SHE VOIDED 100ML OF DARK URINE,PT REPORTS PAIN WITH MOVEMENT AND DENIED NEEDING ANY PAIN MEDICINE .PT REPORTED BEING HOT BEFORE GOING TO BATHROOM,SHE HAD A HEATING PAD TO HER BACK WHICH SHE WANTED OFF AWHILE THIS WAS DONE,V/S STABLE 98.0 AX,TEMP SINCE PT HAD TAKEN A DRINK OF WATER.OFFERED SOMETHING ELSE TO DRINK AND SHE TOOK SOME GRAPE JUICE,NO OTHER NEEDS OR CONCERNS VOICED,HAD PT USE HER INCENTIVE SPIROMETER AGAIN ONLY ABLE TO ACHIEVE 1250ML
[2021-01-01] VITALS (8 sets, daily range): BP systolic 101–126; BP diastolic 59–69; PULSE 86–108; RESP 16–18; TEMP 36.6–37.7; O2SAT 94–100
--- NOTE | 2021-01-01 04:52 | PC.NURSE ---
PT HAS RESTED WELL TONIGHT,WOKE EARLIER AROUND 0330 AND C/O HEADACHE AND BACK PAIN,MEDICATED WITH OXYCODONE AND TYLENOL AND NOW IS ASLEEP,PT LUNGS CLEAR TO ASCULTATE,SAT LEVEL AT 94-95%,TEMP OF 99.0 THIS MORNING.PT HAS ONLY VOIDED 200ML THUS FAR TONIGHT,STILL DARK URINE,EVEN THOUGHT PT HAS NS AT 150ML/HR INFUSING,ABD ON LEFT SIDE NOTED TO BE A LITTLE SWELLED AND TENDER TO TOUCH,NO DRAINAGE TO LAP SITES OR LOWER TRANSVERSE INCISION,NO INFECTION NOTED.BOWEL SOUNDS HYPOACTIVE,PT DOES NOT RECALL PASSING ANY GAS UNLESS SHE DID WHILE SLEEPING.PT HAS DRANK A COUPLE JUICES AND WATER TONIGHT.HAVE HAD PT USE HER INCENTIVE SEVERAL TIMES TONIGHT
--- NOTE | 2021-01-01 08:07 | HMH.ACPN2 ---
Internal Medicine - PN: Subj *Date: 01/01/21 *Time: 08:07 Interval history: still feels uncomfortable with dec gas - ileus on xray and dec urine output - Exam Vital signs and Labs for Last 24 Hours: Temp Pulse Resp BP Pulse Ox 99.0 F 108 H 18 106/61 L 94 L 01/01/21 03:40 01/01/21 03:40 01/01/21 03:40 01/01/21 03:40 01/01/21 03:40 Laboratory Results - last 24 hr 12/31/20 08:35: WBC 15.4 H, RBC 3.60 L, Hgb 9.6 L, Hct 29.6 L, MCV 82.1, MCH 26.6 L, MCHC 32.4, RDW 15.5, Plt Count 286, MPV 8.6, Neut % (Auto) 81.2 H, Lymph % (Auto) 11.7, [place] % (Auto) 4.6, Eos % (Auto) 2.3, Baso % (Auto) 0.3, Neut # (Auto) 12.5 H, Lymph # (Auto) 1.8, [place] # (Auto) 0.7, Eos # (Auto) 0.4, Baso # (Auto) 0.0, Total Counted 100, Neutrophils % (Manual) 77 H, Lymphocytes % (Manual) 15, Monocytes % (Manual) 5, Eosinophils % (Manual) 3, Platelet Estimate Normal, RBC Morphology Normal 12/31/20 18:17: Urine Color Dk yellow, Urine Appearance Clear, Urine pH 6.0, Ur Specific [place] >= 1.030, Urine Protein 3+, Urine Glucose (UA) Negative, Urine Ketones Negative, Urine Blood Negative, Urine Nitrate Negative, Urine Bilirubin Negative, Urine Urobilinogen 0.2, Ur Leukocyte Esterase Negative, Urine WBC 5-10, Ur Squamous Epith Cells 5-10, Urine Bacteria 1+, Urine Mucus 1+ I & O for Last 24 hours: Intake & Output 12/29/20 12/30/20 12/31/20 01/01/21 11:59 11:59 11:59 11:59 Intake Total 0 / 0 2840 / 2840 Output Total 300 / 300 300 / 300 1000 / 1000 750 / 750 Balance -300 / -300 -300 / -300 -1000 / -1000 2089 Microbiology Reports for the Last 24 Hours: Microbiology 12/29/20 14:00 Urine,Clean Catch Urine Culture - Final NO GROWTH AFTER 48 HOURS 12/29/20 12:35 Blood Blood Culture - Preliminary NO GROWTH AFTER 48 HOURS 12/29/20 12:35 Blood Blood Culture - Preliminary NO GROWTH AFTER 48 HOURS - Constitutional no acute distress - *Routine HEENT Exam Head: Present: normocephalic Eye: Present: EOMI, PERRL ENT: Present: mucous membranes dry - *Routine Neck Exam Present: supple - *Routine Respiratory Exam Present: CTA bilaterally - *Routine Cardiovascular Exam Present: RRR - *Routine Abdominal Exam Present: soft, other (dec bs bilat ) - *Routine Extremities Exam Absent: calf tenderness - *Routine Skin Exam Present: intact - *Routine Neurological Exam Present: alert - Routine Psychiatric Exam Present: normal affect Assessment and Plan (1) Hemorrhagic cyst of left ovary Status: Acute Category: Medical Code(s): N83.202 - Unspecified ovarian cyst, left side (2) Intractable abdominal pain Status: Acute Category: Medical Code(s): R10.9 - Unspecified abdominal pain (3) Fallopian tube abscess Status: Acute Category: Medical Code(s): N70.91 - Salpingitis, unspecified (4) Torsion of ovary, ovarian pedicle and fallopian tube Status: Acute Category: Medical Code(s): N83.53 - Torsion of ovary, ovarian pedicle and fallopian tube (5) Fever Status: Acute Category: Medical Code(s): R50.9 - Fever, unspecified (6) UTI (urinary tract infection) Status: Acute Category: Medical Code(s): N39.0 - Urinary tract infection, site not specified (7) Obesity Status: Acute Qualifiers: Obesity type: due to excess calories Obesity classification: adult class 3 (BMI >= 40) Serious obesity comorbidity presence: with serious comorbidity Body mass index: BMI 40.0-44.9 Qualified Code(s): E66.01 - Morbid (severe) obesity due to excess calories; Z68.41 - Body mass index [BMI]40.0-44.9, adult Category: Medical Code(s): E66.9 - Obesity, unspecified
[2021-01-01 08:44] LABS: Basophils % 0.2 % (0.1-2.0); Eosinophils # 0.3 K/mm3 (0.0-0.4); Eosinophils % 2.5 % (0.1-12.0); Hematocrit 27.3 % (37.0-47.0); Hemoglobin 8.8 g/dL (12.2-16.2); Lymphocytes # 1.5 K/mm3 (0.7-4.5); Lymphocytes % 14.4 % (10-50); Mean Corpuscular HGB Conc 32.3 g/dL (31.8-35.4); Mean Corpuscular Hemoglobin 26.3 pg (27.0-31.2); Mean Corpuscular Volume 81.4 fl (81-99); Mean Platelet Volume 9.2 fl (7.4-10.4); Monocytes # 0.5 K/mm3 (0.1-1.0); Monocytes % 5.2 % (1.7-9.3); Neutrophils # 8.1 K/mm3 (1.8-7.8); Neutrophils % 77.6 % (37.0-80.0); Platelet Count 238 K/mm3 (142-424); Red Blood Count 3.35 M/mm3 (4.20-5.40); Red Cell Distribution Width 15.4 % (11.5-17.5); White Blood Count 10.4 K/mm3 (4.8-10.8)
[2021-01-01 09:25] LABS: T4 (Thyroxine) 10.4 ug/dl (5.53-11.0)
[2021-01-01 09:39] LABS: Thyroid Stimulating Hormone 1.78 uIU/mL (0.465-4.68)
--- NOTE | 2021-01-01 09:45 | PC.NURSE ---
0945 Pt ambulating in hallway with staff member, tolerating activity well.
--- NOTE | 2021-01-01 10:11 | HMH.ACPN2 ---
Internal Medicine - PN: Subj *Date: 01/01/21 *Time: 10:11 Interval history: She continues to do well. She had an x-ray yesterday that showed an ileus. She has no episodes of fever. Her red blood cell count went down from 9.6-8.8. Her white blood cell count is gone from 15-10. She still has not had a bowel movement. She had an episode of vomiting this morning but it was after she took her oral Flagyl. She is drinking. She is not eating. Exam Vital signs and Labs for Last 24 Hours: Temp Pulse Resp BP Pulse Ox 97.8 F 89 16 108/64 L 97 01/01/21 08:00 01/01/21 08:00 01/01/21 08:00 01/01/21 08:00 01/01/21 08:00 Laboratory Results - last 24 hr 12/31/20 18:17: Urine Color Dk yellow, Urine Appearance Clear, Urine pH 6.0, Ur Specific [place] >= 1.030, Urine Protein 3+, Urine Glucose (UA) Negative, Urine Ketones Negative, Urine Blood Negative, Urine Nitrate Negative, Urine Bilirubin Negative, Urine Urobilinogen 0.2, Ur Leukocyte Esterase Negative, Urine WBC 5-10, Ur Squamous Epith Cells 5-10, Urine Bacteria 1+, Urine Mucus 1+ 01/01/21 08:20: WBC 10.4 D, RBC 3.35 L, Hgb 8.8 L, Hct 27.3 L, MCV 81.4, MCH 26.3 L, MCHC 32.3, RDW 15.4, Plt Count 238, MPV 9.2, Neut % (Auto) 77.6, Lymph % (Auto) 14.4, [place] % (Auto) 5.2, Eos % (Auto) 2.5, Baso % (Auto) 0.2, Neut # (Auto) 8.1 H, Lymph # (Auto) 1.5, [place] # (Auto) 0.5, Eos # (Auto) 0.3, Baso # (Auto) 0.0 01/01/21 08:35: TSH 1.78, Thyroxine (T4) 10.4 I & O for Last 24 hours: Intake & Output 12/29/20 12/30/20 12/31/20 01/01/21 11:59 11:59 11:59 11:59 Intake Total 0 / 0 2840 / 2840 Output Total 300 / 300 300 / 300 1000 / 1000 800 / 800 Balance -300 / -300 -300 / -300 -1000 / -1000 2040 / 2040 Microbiology Reports for the Last 24 Hours: Microbiology 12/29/20 14:00 Urine,Clean Catch Urine Culture - Final NO GROWTH AFTER 48 HOURS 12/29/20 12:35 Blood Blood Culture - Preliminary NO GROWTH AFTER 48 HOURS 12/29/20 12:35 Blood Blood Culture - Preliminary NO GROWTH AFTER 48 HOURS - Constitutional no acute distress - *Routine HEENT Exam Head: Present: normocephalic Eye: Present: EOMI, PERRL ENT: Present: mucous membranes moist - *Routine Respiratory Exam Present: CTA bilaterally - *Routine Cardiovascular Exam Present: RRR - *Routine Abdominal Exam Present: soft, normoactive bowel sounds. Absent: tenderness Comments: Her incision is clean and dry. She does have normal bowel sounds this morning. Assessment and Plan (1) Hemorrhagic cyst of left ovary Status: Acute Category: Medical Code(s): N83.202 - Unspecified ovarian cyst, left side (2) Intractable abdominal pain Status: Acute Category: Medical Code(s): R10.9 - Unspecified abdominal pain (3) Fallopian tube abscess Status: Acute Category: Medical Code(s): N70.91 - Salpingitis, unspecified (4) Torsion of ovary, ovarian pedicle and fallopian tube Status: Acute Category: Medical Code(s): N83.53 - Torsion of ovary, ovarian pedicle and fallopian tube (5) Fever Status: Acute Category: Medical Code(s): R50.9 - Fever, unspecified (6) UTI (urinary tract infection) Status: Acute Category: Medical Code(s): N39.0 - Urinary tract infection, site not specified (7) Postoperative ileus Status: Acute Category: Medical Code(s): K91.89 - Other postprocedural complications and disorders of digestive system; K56.7 - Ileus, unspecified - Assessment and plan all Dx Assessment and Plan for all problems:: She is doing a little better this morning. We are trying a Dulcolax suppositories to see if this helps stimulate her bowels. She has better urine output today. We will continue to observe.
--- NOTE | 2021-01-01 16:49 | PC.NURSE ---
1749 Pt is ambulating in hallway with staff member. Pt reports moderate BM and void prior to walking. Pt has been stressed today that she hadn't had a BM, appears more relieved.
--- NOTE | 2021-01-01 17:15 | PC.NURSE ---
1700 RN reassessment completed. Pt appears more optimistic about hospitalization since BM. Pt has spent majority of the shift in the recliner chair. Pt has walked in the hallway a couple times today, tolerating activity well. Pt has had 1000 ml UOP this shift, yellow in color. Pt reports ease with voiding today compared to yesterday. IV to R AC infusing without any difficulty. Lung sounds CTA. Abd soft and nontender with BS active in all quads. Pt had x1 episode of emesis this shift following PO flagyl and has also had x1 episode of nausea that did not require medication. 2 lap sites and LTV site AIR FILLER, C/D/I. Incision sites cleaned with hibiclens per MD order, tolerated well by pt. Incentive spirometer used several times today, pt able to achieve 1500 ml. Pt continues to report decreased appetite but is more willing to try eating, compared to earlier in the shift. VSS. Will continue to monitor.
[2021-01-02] VITALS (19 sets, daily range): BP systolic 95–128; BP diastolic 41–72; PULSE 86–96; RESP 18–20; TEMP 36.8–38.8; O2SAT 92–100
--- NOTE | 2021-01-02 01:25 | PC.NURSE ---
WHEN HUNGING PT FLAGYL,V/S OBTAINED AND WAS 115/55,P-96,R-18,SAT LEVEL 92,TEMP 101.9,LUNGS CLEAR,BOWEL SOUND ACTIVE,TYLENOL 650MG PO WAS GIVEN.PT HAD A COUPLE BLANKETS ON AND SHE REMOVED ONE.NOTIFIED AND TOLD HIM ABOUT PT HX AND SURGERY,ABOUT HER CONSTIPATION AND SHE HAD HAD SOME DECREASED OUTPUT BUT IT WAS BETTER NOW,TOLD HIM SHE HAD TRIGGERED SEPS[facility] A FEW DAYS AGO AND RECEIVED BOLUS AND ANTIBIOTIC,IS CURRENTLY TAKING ROCEPHIN,FLAGYL,AND LEVAQUIN,FLUIDS ARE GOING AT 150ML/HR,HE ORDERED IBUPROFEN 400MG PO X1 DOSE NOW AND A SET OF BLOOD CULTURES.WILL CONTINUE TO MONITOR PT.
--- NOTE | 2021-01-02 01:45 | PC.NURSE ---
LAB HERE TO OBTAIN BLOOD CULTURE
--- NOTE | 2021-01-02 04:15 | PC.NURSE ---
PT V/S THIS MORNING WAS 105/62,P-88,R-18,SAT LEVEL 92%,T-98.3,PTS LUNGS CLEAR,RESP.EVEN AND UNLABORED.BOWEL SOUNDS X4 QUADS ACTIVE,PT DENIES PASSING ANY GAS,INCISION AND LAP SITES C.D.I,PT DENIES ANY PAIN AT THIS TIME.PT HAS VOIDED 400ML THUS FAR ON THIS SHIFT,YELLOW IN COLOR,NO BOWEL MOVEMENT THIS SHIFT.PT HAD A TEMP EARLIER OF 101.9 AND WAS MEDICATED WITH TYLENOL AND THEN IBUPROFEN PER ORDERS.BLOOD CULTURES WHERE DONE AT THAT TIME..WILL CONTINUE TO MONITOR
[2021-01-02 06:43] LABS: Basophils % 0.3 % (0.1-2.0); Eosinophils # 0.1 K/mm3 (0.0-0.4); Eosinophils % 1.7 % (0.1-12.0); Hematocrit 26.3 % (37.0-47.0); Hemoglobin 8.4 g/dL (12.2-16.2); Lymphocytes # 1.4 K/mm3 (0.7-4.5); Lymphocytes % 18.1 % (10-50); Mean Corpuscular Hemoglobin 26.2 pg (27.0-31.2); Mean Corpuscular Volume 81.8 fl (81-99); Mean Platelet Volume 8.9 fl (7.4-10.4); Monocytes # 0.5 K/mm3 (0.1-1.0); Monocytes % 5.9 % (1.7-9.3); Neutrophils # 5.6 K/mm3 (1.8-7.8); Platelet Count 248 K/mm3 (142-424); Red Blood Count 3.22 M/mm3 (4.20-5.40); Red Cell Distribution Width 15.2 % (11.5-17.5); White Blood Count 7.6 K/mm3 (4.8-10.8)
[2021-01-02 06:45] LABS: Chloride 108 mmol/L (98-107); Sodium 140 mmol/L (136-145)
[2021-01-02 06:46] LABS: Potassium 3.4 mmoL/L (3.5-5.1)
[2021-01-02 06:49] LABS: Anion Gap 11.4 mEq/L (5-15); Blood Urea Nitrogen 5 mg/dl (7-17); Calcium 7.9 mg/dl (8.4-10.2); Carbon Dioxide 24 mmol/L (22.0-30.0); Creatinine Clearance Estimated 233 mL/min (50-200); Estimated Glomerular Filt Rate 104 ml/min (>60); GFR (African American) 125 ML/MIN (>60); Glucose 92 mg/dl (74-100)
--- NOTE | 2021-01-02 08:53 | HMH.ACPN2 ---
Internal Medicine - PN: Subj *Date: 01/02/21 *Time: 09:10 Interval history: pt states she is feeling better had bm and passing gas, pt is pale in color Exam Vital signs and Labs for Last 24 Hours: Temp Pulse Resp BP Pulse Ox 98.2 F 91 H 18 126/62 96 01/02/21 07:59 01/02/21 07:59 01/02/21 07:59 01/02/21 07:59 01/02/21 07:59 Laboratory Results - last 24 hr 01/01/21 08:35: TSH 1.78, Thyroxine (T4) 10.4 01/02/21 06:32: WBC 7.6 D, RBC 3.22 L, Hgb 8.4 L, Hct 26.3 L, MCV 81.8, MCH 26.2 L, MCHC 32.0, RDW 15.2, Plt Count 248, MPV 8.9, Neut % (Auto) 74.0, Lymph % (Auto) 18.1, [place] % (Auto) 5.9, Eos % (Auto) 1.7, Baso % (Auto) 0.3, Neut # (Auto) 5.6, Lymph # (Auto) 1.4, [place] # (Auto) 0.5, Eos # (Auto) 0.1, Baso # (Auto) 0.0 01/02/21 06:32: Sodium 140, Potassium 3.4 L, Chloride 108 H, Carbon Dioxide 24, Anion Gap 11.4, BUN 5 L D, Creatinine 0.70, Estimated Creat Clear 233, Estimated GFR 104, Est GFR ( Amer) 125, Glucose 92, Calcium 7.9 L I & O for Last 24 hours: Intake & Output 12/30/20 12/31/20 01/01/21 01/02/21 11:59 11:59 11:59 11:59 Intake Total 2840 / 2840 5391 / 5391 Output Total 300 / 300 1000 / 1000 950 / 950 1300 / 1300 Balance -300 / -300 -1000 / -1000 1890 / 1890 4091 / 4091 - Constitutional no acute distress - *Routine HEENT Exam Head: Present: normocephalic Eye: Present: PERRL ENT: Present: mucous membranes moist - *Routine Neck Exam Present: supple. Absent: lymphadenopathy - *Routine Respiratory Exam Present: CTA bilaterally - *Routine Cardiovascular Exam Present: RRR - *Routine Abdominal Exam Present: soft, normoactive bowel sounds, tenderness - *Routine Extremities Exam Present: normal capillary refill. Absent: cyanosis, clubbing, edema - *Routine Skin Exam Present: warm. Absent: rash Comments: incisions clean, no drainage or redness - *Routine Neurological Exam Present: alert, oriented X3 - Routine Psychiatric Exam Present: normal affect Assessment and Plan (1) Hemorrhagic cyst of left ovary Status: Acute Category: Medical Code(s): N83.202 - Unspecified ovarian cyst, left side (2) Intractable abdominal pain Status: Acute Category: Medical Code(s): R10.9 - Unspecified abdominal pain (3) Fallopian tube abscess Status: Acute Category: Medical Code(s): N70.91 - Salpingitis, unspecified (4) Torsion of ovary, ovarian pedicle and fallopian tube Status: Acute Category: Medical Code(s): N83.53 - Torsion of ovary, ovarian pedicle and fallopian tube (5) Fever Status: Acute Category: Medical Code(s): R50.9 - Fever, unspecified (6) UTI (urinary tract infection) Status: Acute Category: Medical Code(s): N39.0 - Urinary tract infection, site not specified (7) Postoperative ileus Status: Acute Category: Medical Code(s): K91.89 - Other postprocedural complications and disorders of digestive system; K56.7 - Ileus, unspecified - Assessment and plan all Dx Assessment and Plan for all problems:: low h/h discussed with dr garibay will transfuse 1 unit prbc jovon wall later, all orders per dr sigala
--- NOTE | 2021-01-02 09:09 | HMH.ACPN2 ---
Internal Medicine - PN: Subj *Date: 01/02/21 *Time: 09:09 Interval history: She is doing a little better today. She had a large bowel movement yesterday. She is voiding much better as well. She has been passing gas. She does not have any further episodes of nausea. She had a small amount of breakfast today. She says she is not really hungry though. She denies any shortness of breath, chest pain or calf tenderness. She does have some pedal edema. Her hemoglobin is 8.4 this morning it has dropped down a small amount. We will plan to transfuse her 1 unit of blood today. She had an episode of fever overnight and her temperature was 101.8. Since then she has been afebrile. And prior to that for the previous 48 hours she was afebrile. Exam Vital signs and Labs for Last 24 Hours: Temp Pulse Resp BP Pulse Ox 98.2 F 91 H 18 126/62 96 01/02/21 07:59 01/02/21 07:59 01/02/21 07:59 01/02/21 07:59 01/02/21 07:59 Laboratory Results - last 24 hr 01/01/21 08:35: TSH 1.78, Thyroxine (T4) 10.4 01/02/21 06:32: WBC 7.6 D, RBC 3.22 L, Hgb 8.4 L, Hct 26.3 L, MCV 81.8, MCH 26.2 L, MCHC 32.0, RDW 15.2, Plt Count 248, MPV 8.9, Neut % (Auto) 74.0, Lymph % (Auto) 18.1, [place] % (Auto) 5.9, Eos % (Auto) 1.7, Baso % (Auto) 0.3, Neut # (Auto) 5.6, Lymph # (Auto) 1.4, [place] # (Auto) 0.5, Eos # (Auto) 0.1, Baso # (Auto) 0.0 01/02/21 06:32: Sodium 140, Potassium 3.4 L, Chloride 108 H, Carbon Dioxide 24, Anion Gap 11.4, BUN 5 L D, Creatinine 0.70, Estimated Creat Clear 233, Estimated GFR 104, Est GFR ( Amer) 125, Glucose 92, Calcium 7.9 L I & O for Last 24 hours: Intake & Output 12/30/20 12/31/20 01/01/21 01/02/21 11:59 11:59 11:59 11:59 Intake Total 2840 / 2840 5391 / 5391 Output Total 300 / 300 1000 / 1000 950 / 950 1300 / 1300 Balance -300 / -300 -1000 / -1000 1890 / 1890 4091 / 4091 - Constitutional no acute distress - *Routine HEENT Exam Head: Present: normocephalic Eye: Present: EOMI, PERRL ENT: Present: mucous membranes moist - *Routine Neck Exam Present: supple. Absent: lymphadenopathy - *Routine Respiratory Exam Present: CTA bilaterally - *Routine Abdominal Exam Present: soft, normoactive bowel sounds. Absent: tenderness Comments: Her abdomen is soft. There is some bruising around the left lower quadrant incision. The incisions however are clean and dry otherwise. - *Routine Extremities Exam Present: edema. Absent: cyanosis, clubbing Comments: She has 2+ lower leg edema. Assessment and Plan (1) Hemorrhagic cyst of left ovary Status: Acute Category: Medical Code(s): N83.202 - Unspecified ovarian cyst, left side (2) Intractable abdominal pain Status: Acute Category: Medical Code(s): R10.9 - Unspecified abdominal pain (3) Fallopian tube abscess Status: Acute Category: Medical Code(s): N70.91 - Salpingitis, unspecified (4) Torsion of ovary, ovarian pedicle and fallopian tube Status: Acute Category: Medical Code(s): N83.53 - Torsion of ovary, ovarian pedicle and fallopian tube (5) Fever Status: Acute Category: Medical Code(s): R50.9 - Fever, unspecified (6) UTI (urinary tract infection) Status: Acute Category: Medical Code(s): N39.0 - Urinary tract infection, site not specified (7) Postoperative ileus Status: Acute Category: Medical Code(s): K91.89 - Other postprocedural complications and disorders of digestive system; K56.7 - Ileus, unspecified - Assessment and plan all Dx Assessment and Plan for all problems:: We will go ahead and transfuse her 1 unit of blood today. She has a slightly low potassium so we will start some potassium in the IV bag. We will add 20 units to the bag. We will slow her IV to 50 cc/h. She was encouraged to continue drinking. I suspect she continues to have atelectasis and/or pneumonia. We will keep her on the antibiotics for now. We will likely send her home with Levaquin orally.
--- NOTE | 2021-01-02 09:52 | PC.NURSE ---
LAB AT BEDSIDE
--- NOTE | 2021-01-02 11:10 | PC.NURSE ---
ONE UNIT OF PRBC STARTED AT THIS TIME. VERIFIED BY 2 RN'S AT BEDSIDE. EDUCATION PROVIDED TO PATIENT AND NURSE ENCOURAGED QUESTIONS. PT V/U NO OTHER NEEDS
--- NOTE | 2021-01-02 12:05 | PC.NURSE ---
lunch tray sat in patients room. reports she is not hungry at this time. Sitting up in bed with prbc infusing per orders.
[2021-01-02 14:29] LABS: Hematocrit 28.7 % (37.0-47.0)
[2021-01-02 16:05] LABS: Hemoglobin 9.4 g/dL (12.2-16.2)
--- NOTE | 2021-01-02 16:06 | PC.NURSE ---
NO CHANGES NOTED FROM PREVIOUS ASSESSMENT. REPORTS MINIMAL PAIN RATES 2/10. REPORTS PASSING GAS AND NO BM ON ME. LUNGS CTA AND BOWEL SOUNDS HYPOACTIVE X4. 2 LAP SITES C/D/I WITH BRUISING NOTED TO LEFT LAP SITE. LOW TRANSVERSE INCISION C/D/I. PULSES 2+ AND CAP REFIL <3 SECONDS. 1+ EDEMA BLE, AND EDEMA NOTED TO RIGHT ARM. PT HAS HAD ADEQUATE OUTPUT. NO NEEDS.
--- NOTE | 2021-01-02 17:06 | PC.NURSE ---
dr. garibay at bedside. report given. pt reported to md about feeling weird . no new orders
--- NOTE | 2021-01-02 18:10 | PC.NURSE ---
pt up to the shower. assistance by her mom.
--- NOTE | 2021-01-02 18:36 | PC.NURSE ---
patient back in bed. reports feeling better. no other needs.
--- NOTE | 2021-01-02 20:25 | PC.NURSE ---
DULCOLAX SUPP 10MG INSERTED RECTALLY WHILE PT LAYING ON HER RIGHT SIDE.PT TOLERATED WELL,ENCOURAGED PT TO TRY AND HOLD IT AT LEAST 1/2 HOUR BEFORE GOING TO BATHROOM,PT V/U
--- NOTE | 2021-01-02 22:35 | PC.NURSE ---
pt able to have a mod.formed brown stool.pt voided another 100ml of clear yellow urine.
--- NOTE | 2021-01-02 23:00 | PC.NURSE ---
cleansed incision and lap sites with hibiclens,pt tolerated well,bruising noted to left lap site,no drainage noted,pt temp 98.4 now.apple juice provided,no other needs or concerns voiced
[2021-01-03 00:25] VITALS: BP 125/73; PULSE 91; RESP 18; TEMP 37.2; O2SAT 94
[2021-01-03 04:00] VITALS: BP 112/61; PULSE 93; RESP 18; TEMP 37.5; O2SAT 96
--- NOTE | 2021-01-03 04:00 | PC.NURSE ---
NO ACUTE CHANGES FROM PREVIOUS ASSESSMENT,LUNGS CLEAR,RESP.EVEN AND UNLABORED,BOWEL SOUNDS ACTIVE X4 QUADS,DENIES ANY FLATUS,PT HAS HAD A MOD BOWEL MOVEMENT TONIGHT,VOIDED 1000ML YELLOW URINE.THIS THIS MORNING WAS 99.5.PT HAS ONLY BEEN MEDICATED X ONE WITH TYLENOL FOR HEADACHE,INCISION AND LAP SITES C,D,I,WILL CONTINUE TO MONITOR
--- NOTE | 2021-01-03 06:30 | PC.NURSE ---
PT SITTING UP IN CHAIR AFTER GOING TO BATHROOM,WAS MEDICATED WITH TYLENOL FOR H/A PAIN 4 ON SCALE OF 0-10.NO NEEDS OR CONCERNS VOICED.
[2021-01-03 08:00] VITALS: BP 144/74; PULSE 105; RESP 16; TEMP 36.7; O2SAT 96
[2021-01-03 08:01] LABS: Basophils # 0.1 K/mm3 (0-0.2); Basophils % 0.5 % (0.1-2.0); Eosinophils # 0.1 K/mm3 (0.0-0.4); Eosinophils % 1.2 % (0.1-12.0); Hematocrit 30.4 % (37.0-47.0); Hemoglobin 9.8 g/dL (12.2-16.2); Lymphocytes # 1.2 K/mm3 (0.7-4.5); Lymphocytes % 13.2 % (10-50); Mean Corpuscular HGB Conc 32.2 g/dL (31.8-35.4); Mean Corpuscular Hemoglobin 26.8 pg (27.0-31.2); Mean Corpuscular Volume 83.3 fl (81-99); Mean Platelet Volume 8.3 fl (7.4-10.4); Monocytes # 0.4 K/mm3 (0.1-1.0); Monocytes % 4.2 % (1.7-9.3); Neutrophils # 7.6 K/mm3 (1.8-7.8); Neutrophils % 80.9 % (37.0-80.0); Platelet Count 276 K/mm3 (142-424); Red Blood Count 3.65 M/mm3 (4.20-5.40); Red Cell Distribution Width 15.9 % (11.5-17.5); White Blood Count 9.4 K/mm3 (4.8-10.8)
[2021-01-03 08:11] LABS: Chloride 107 mmol/L (98-107); Potassium 3.6 mmoL/L (3.5-5.1); Sodium 141 mmol/L (136-145)
[2021-01-03 08:14] LABS: Anion Gap 12.6 mEq/L (5-15); Blood Urea Nitrogen 5 mg/dl (7-17); Calcium 8.4 mg/dl (8.4-10.2); Carbon Dioxide 25 mmol/L (22.0-30.0); Creatinine Clearance Estimated 204 mL/min (50-200); Estimated Glomerular Filt Rate 89 ml/min (>60); GFR (African American) 108 ML/MIN (>60); Glucose 128 mg/dl (74-100)
--- NOTE | 2021-01-03 10:54 | P.PN_ITS ---
Internal Medicine - PN: Subj *Date: 01/03/21 *Time: 10:54 Exam Vital signs and Labs for Last 24 Hours: Temp Pulse Resp BP Pulse Ox 98.0 F 105 H 16 144/74 H 96 01/03/21 08:00 01/03/21 08:00 01/03/21 08:00 01/03/21 08:00 01/03/21 08:00 Laboratory Results - last 24 hr 01/02/21 09:45: Blood Type O Positive, Antibody Screen Negative, Crossmatch (AHG) See Detail 01/02/21 14:05: Hgb 9.4 L D, Hct 28.7 L 01/03/21 07:40: WBC 9.4, RBC 3.65 L, Hgb 9.8 L, Hct 30.4 L, MCV 83.3, MCH 26.8 L , MCHC 32.2, RDW 15.9, Plt Count 276, MPV 8.3, Neut % (Auto) 80.9 H, Lymph % (Auto) 13.2, [place] % (Auto) 4.2, Eos % (Auto) 1.2, Baso % (Auto) 0.5, Neut # (Auto) 7.6, Lymph # (Auto) 1.2, [place] # (Auto) 0.4, Eos # (Auto) 0.1, Baso # (Auto) 0.1 01/03/21 07:40: Sodium 141, Potassium 3.6, Chloride 107, Carbon Dioxide 25, Anion Gap 12.6, BUN 5 L, Creatinine 0.80, Estimated Creat Clear 204, Estimated GFR 89, Est GFR ( Amer) 108, Glucose 128 H, Calcium 8.4 I & O for Last 24 hours: Intake & Output 12/31/20 01/01/21 01/02/21 01/03/21 23:59 23:59 23:59 23:59 Intake Total 120 / 120 5911 / 5911 2600 / 2600 460 / 460 Output Total 650 / 650 1600 / 1600 2099 / 2099 Balance -530 / -530 4311 / 4311 500 / 500 -1640 / -1640 Assessment and Plan (1) Hemorrhagic cyst of left ovary Status: Acute Category: Medical Code(s): N83.202 - Unspecified ovarian cyst, left side (2) Intractable abdominal pain Status: Acute Category: Medical Code(s): R10.9 - Unspecified abdominal pain (3) Fallopian tube abscess Status: Acute Category: Medical Code(s): N70.91 - Salpingitis, unspecified (4) Torsion of ovary, ovarian pedicle and fallopian tube Status: Acute Category: Medical Code(s): N83.53 - Torsion of ovary, ovarian pedicle and fallopian tube (5) Fever Status: Acute Category: Medical Code(s): R50.9 - Fever, unspecified (6) UTI (urinary tract infection) Status: Acute Category: Medical Code(s): N39.0 - Urinary tract infection, site not specified (7) Postoperative ileus Status: Acute Category: Medical Code(s): K91.89 - Other postprocedural compl ications and disorders of digestive system; K56.7 - Ileus, unspecified The patient's infection will respond to the chosen ABx?: Yes Is the patient receiving the right drug, dose, and route?: Yes Could a more targeted ABx be ordered?: No
--- NOTE | 2021-01-03 11:52 | HMH.DCSUM ---
General - General Admission date:: 12/26/20 Discharge date: 01/03/21 HPI HPI: She is a 25-year-old 0 para 0 young lady who complains of severe left lower quadrant pain that started around 2:00 this afternoon. Up until that time she said she was doing well. test is negative. Ultrasound shows that she has a 6 to 7 cm right hemorrhagic ovarian cyst. Not clear why her left side is hurting. Ultrasound did not show the left ovary. Hospital Course Hospital Course: On December 27, 2020 she underwent a laparoscopic left salpingo-oophorectomy. She had a tubo-ovarian abscess. She also had torsion of the entire left tube and ovary with necrosis. She required a mini laparotomy to remove the tube and ovary. She was slow to recover after her surgery and had some atelectasis with possible left lower lobe pneumonia. She was started on Rocephin for a urinary tract infection as well as doxycycline and Flagyl. We subsequently change the doxycycline to Levaquin since she was feeling nauseous. She has had a couple of episodes of fever to 101.8. She had a fever yesterday but in the last 24 hours has had temperatures in the 98-99 range. Abdominal x-ray confirmed a mild ileus. She has not really been eating a lot but in the last 24 hours she has started eating somewhat. She has had a couple bowel movements since being in hospital and is passing gas. She is voiding well. She has received IV fluids and has had some third spacing with mild pedal edema. She had a slow decline in her hemoglobin as result of dilution and possibly some minimal ooze. We elected to transfuse her yesterday since she was pale and her hemoglobin had dropped to 8.4. Her repeat hemoglobin posttransfusion was 9.4. We will plan to discharge her today. She will take a women's One-A-Day vitamin with iron. We will plan to repeat her x-ray again in about 48 hours and see her in the office in 72 hours. She will go home with Levaquin 500 mg daily for the next few days. She has been just taking Tylenol and ibuprofen for her discomfort. She will be given a prescription for Percocet 5/325 number 6 tablets in case she needs something stronger for pain. Her incision is clean and dry and she will continue to clean it with Hibiclens. She was given the usual instructions with respect to limiting her activity, driving and sexual activity. Her condition on discharge is stable and improved. Objective Vital signs: Temp Pulse Resp BP Pulse Ox 98.0 F 105 H 16 144/74 H 96 01/03/21 08:00 01/03/21 08:00 01/03/21 08:00 01/03/21 08:00 01/03/21 08:00 no acute distress - *Routine HEENT Exam Head: Present: normocephalic Eye: Present: EOMI, PERRL ENT: Present: mucous membranes moist - *Routine Neck Exam Present: supple - *Routine Respiratory Exam Present: CTA bilaterally - *Routine Cardiovascular Exam Present: RRR - *Routine Abdominal Exam Present: soft, normoactive bowel sounds. Absent: tenderness Comments: Her incision is clean and dry - *Routine Extremities Exam Present: edema, full ROM Results Labs on day of discharge: Labs from last 24 hours 01/03/21 01/03/21 01/02/21 07:40 07:40 14:05 WBC 9.4 RBC 3.65 L Hgb 9.8 L 9.4 L D Hct 30.4 L 28.7 L MCV 83.3 MCH 26.8 L MCHC 32.2 RDW 15.9 Plt Count 276 MPV 8.3 Neut % (Auto) 80.9 H Lymph % (Auto) 13.2 [place] % (Auto) 4.2 Eos % (Auto) 1.2 Baso % (Auto) 0.5 Neut # (Auto) 7.6 Lymph # (Auto) 1.2 [place] # (Auto) 0.4 Eos # (Auto) 0.1 Baso # (Auto) 0.1 Sodium 141 Potassium 3.6 Chloride 107 Carbon Dioxide 25 Anion Gap 12.6 BUN 5 L Creatinine 0.80 Estimated Creat Clear 204 Estimated GFR 89 Est GFR ( Amer) 108 Glucose 128 H Calcium 8.4 Crossmatch (AHG) 01/02/21 09:45 WBC RBC Hgb Hct MCV MCH MCHC RDW Plt Count MPV Neut % (Auto) Lymph % (Auto) Mon
[2021-01-03 12:00] VITALS: BP 132/73; PULSE 86; RESP 18; TEMP 36.7; O2SAT 98
--- NOTE | 2021-01-04 16:38 | HMH.CONFU ---
Internal Medicine - PN: Subj *Date: 01/03/21 *Time: 12:54 Interval history: 24-year-old female patient sitting up in room in chair, she reports she feels much improved today after receiving 1 unit of packed red blood cells. She denies any shortness of breath during the night or this morning. Medicine will send home on levofloxacin 500 mg daily x4 days for suspected chest x-ray. Exam Vital signs and Labs for Last 24 Hours: Temp Pulse Resp BP Pulse Ox 98.0 F 86 18 132/73 98 01/03/21 12:00 01/03/21 12:00 01/03/21 12:00 01/03/21 12:00 01/03/21 12:00 I & O for Last 24 hours: Intake & Output 01/01/21 01/02/21 01/03/21 01/04/21 23:59 23:59 23:59 23:59 Intake Total 5911 / 5911 2600 / 2600 460 / 460 Output Total 1600 / 1600 2100 / 2100 2100 / 2100 Balance 4311 / 4311 500 / 500 -1640 / -1640 Microbiology Reports for the Last 24 Hours: Microbiology 01/02/21 01:47 Blood Blood Culture - Preliminary NO GROWTH AFTER 48 HOURS 12/29/20 12:35 Blood Blood Culture - Final NO GROWTH AFTER 5 DAYS 12/29/20 12:35 Blood Blood Culture - Final NO GROWTH AFTER 5 DAYS - Constitutional no acute distress - *Routine HEENT Exam Head: Present: normocephalic Eye: Present: EOMI ENT: Present: mucous membranes moist - *Routine Neck Exam Present: trachea midline. Absent: tracheal deviation - *Routine Respiratory Exam Present: CTA bilaterally. Absent: accessory muscle use - *Routine Cardiovascular Exam Present: RRR - *Routine Abdominal Exam Present: soft, normoactive bowel sounds, tenderness. Absent: firm - *Routine Extremities Exam Present: full ROM, pulses intact. Absent: cyanosis, clubbing, calf tenderness - *Routine Skin Exam Present: wounds. Absent: intact Comments: Incision C/D/I - *Routine Neurological Exam Present: alert, oriented X3. Absent: motor deficit, pronator drift - Routine Psychiatric Exam Present: normal affect, normal thought process. Absent: auditory hallucinations, visual hallucinations Assessment and Plan (1) Hemorrhagic cyst of left ovary Status: Acute Category: Medical Code(s): N83.202 - Unspecified ovarian cyst, left side (2) Intractable abdominal pain Status: Acute Category: Medical Code(s): R10.9 - Unspecified abdominal pain (3) Fallopian tube abscess Status: Acute Category: Medical Code(s): N70.91 - Salpingitis, unspecified (4) Torsion of ovary, ovarian pedicle and fallopian tube Status: Acute Category: Medical Code(s): N83.53 - Torsion of ovary, ovarian pedicle and fallopian tube (5) Fever Status: Acute Category: Medical Code(s): R50.9 - Fever, unspecified (6) UTI (urinary tract infection) Status: Acute Category: Medical Code(s): N39.0 - Urinary tract infection, site not specified (7) Postoperative ileus Status: Acute Category: Medical Code(s): K91.89 - Other postprocedural complications and disorders of digestive system; K56.7 - Ileus, unspecified (8) Postoperative anemia Status: Acute Category: Medical Code(s): D64.9 - Anemia, unspecified - Assessment and plan all Dx Assessment and Plan for all problems:: Discussed patient with Dr. Almonte, all orders per Dr. Almonte: 1. Able to be discharged from medical standpoint 2. Levofloxacin 500 mg daily x4 days 3. Follow-up with PCP in 1 to 2 weeks
== END 2021-01-03 14:55 | disposition home or self-care (01) | DRG 742 ==
LOC: ER 18:30 → OB 12-27 08:02
PROVIDERS: Nurse Practitioner Family; Admitting Provider Nurse Practitioner Obstetrics & Gynecology; Emergency Provider Emergency Medicine; PCP Emergency Medicine; Referring Provider Family Medicine; Visit Provider Nurse Practitioner Obstetrics & Gynecology
PROC: 0UT60ZZ Resection of Left Fallopian Tube, Open Approach (ICD-10-PCS; CPT 58925; principal; 2020-12-27 07:30)
DX: N70.03 Acute salpingitis and oophoritis (principal); N83.53 Torsion of ovary, ovarian pedicle and fallopian tube; K56.7 Ileus, unspecified; N39.0 Urinary tract infection, site not specified; Z68.41 Body mass index [BMI] 40.0-44.9, adult; E66.01 Morbid (severe) obesity due to excess calories; D64.9 Anemia, unspecified; Z53.31 Laparoscopic surgical procedure converted to open procedure
CPT/HCPCS: 58720; 36415; 71045; 71046; 74021; 74177; 76830; 80048; 80053; 81001; 81025; 83605; 83690; 84436; 84443; 85007; 85014; 85018; 85025; 86850; 87040; 87086; 94761; 96365; 96375; 96376; 99284; G0283; J0456; J1956; J2405; J2710; P9016; Q9967; U0003

== ENCOUNTER → 2021-01-05 17:02 | Outpatient (CLI) | payer OTHER, SELFPAY ==
--- NOTE | 2021-01-05 | XR_ITS ---
PROCEDURE INFORMATION: Exam: XR Chest Exam date and time: 01/05/2021 12:00 AM Age: 25 years old Clinical indication: Pain; Angina pectoris; Patient HX: Fever. Post op TECHNIQUE: Imaging protocol: XR of the chest. Views: 2 views. COMPARISON: CR XR ACUTE ABDOMEN SERIES 12/31/2020 5:20 PM FINDINGS: Airway: The airways are patent. Lungs: No acute interstitial or airspace disease. Pleural spaces: There are no pleural effusions present. There is no evidence of pneumothorax. Heart/Mediastinum: Heart is of normal size and morphology. Bones/joints: No acute skeletal abnormality or aggressive osseous lesion. IMPRESSION: Negative for acute thoracic pathology.
== END ==
PROVIDERS: PCP Emergency Medicine; Visit Provider Nurse Practitioner Obstetrics & Gynecology
DX: R50.9 Fever, unspecified (principal)
CPT/HCPCS: 71046

== ENCOUNTER 2021-04-28 12:08 | Emergency (ER) | payer OTHER, SELFPAY ==
[2021-04-28 12:10] VITALS: BP 136/88; PULSE 86; RESP 16; TEMP 36.6; O2SAT 99; BMI 40.7
--- NOTE | 2021-04-28 12:21 | XR_ITS ---
PROCEDURE: XR FOOT LT MIN 3V CLINICAL INDICATION: fall COMPARISON: No exams were available for comparison FINDINGS: No fracture or dislocation. No lytic or blastic change. There is normal mineralization. The joint spaces are well-preserved. No significant degenerative/arthritic changes. No erosive changes evident. Other findings:None. IMPRESSION: No acute findings. Dictated by: Marcos Hayes MD 04/28/2021 13:04 Marcos Hayes MD in [facility] 04/28/2021 13:04
--- NOTE | 2021-04-28 12:21 | XR_ITS ---
PROCEDURE: XR ANKLE LT MIN 3V CLINICAL INDICATION: fall COMPARISON: No exams were available for comparison FINDINGS: No fracture or dislocation. No lytic or blastic change. There is normal mineralization. The joint spaces are well-preserved. No significant degenerative/arthritic changes. No erosive changes evident. Other findings:None. IMPRESSION: No acute findings. Dictated by: Marcos Hayes MD 04/28/2021 13:04 Marcos Hayes MD in [facility] 04/28/2021 13:04
--- NOTE | 2021-04-28 12:21 | XR_ITS ---
PROCEDURE: XR TIBIA FIBULA LT 2V CLINICAL INDICATION: fall COMPARISON: No exams were available for comparison FINDINGS: No fracture or dislocation. The joint spaces are well-preserved. No significant degenerative/arthritic changes. No erosive changes evident. Other findings:There is a small area of cortical thickening involving the proximal tibia medially. This is nonspecific. Stability may be confirmed with follow-up. Small sclerotic focus noted in the distal femur centrally and may be due to a bone island IMPRESSION: No acute finding. Small area of cortical thickening of proximal tibia medially of uncertain clinical significance. Consider follow-up to confirm stability Dictated by: Marcos Hayes MD 04/28/2021 13:07 Marcos Hayes MD in [facility] 04/28/2021 13:07
--- NOTE | 2021-04-28 12:43 | HMH.EDUTC ---
[facility] [place] Clinical Impression: Contusion of lower extremity Qualifiers: Encounter type: initial encounter Laterality: left Qualified Code(s): S80.12XA - Contusion of left lower leg, initial encounter Disposition: Home, Self-Care Condition on Discharge: Good Instructions: Contusion, DI for Ankle Sprain, How To Perform RICE (Rest, Ice, Compress, Elevate), DI for Foot Sprain Additional Instructions: *weight bearing as tolerated *RICE, Rest the extremity, Ice 15-20 minutes 3-4 times daily, Compress- wear the ilan wrap as discussed as much as possible to help reduce swelling and pain, Elevate the extremity when at rest *Ilan wrap is for support and help control swelling, use it except in the shower. Be sure that is not to tight but not to loose either *Elevate when resting *Ibuprofen as directed on package every 6-8 hours as needed for pain an inflammation. If need something more can take Tylenol in between doses of Ibuprofen to help Immediately follow up with your family doctor for new or worsening of symptoms, or no noticeable improvement over the next 3-5 days Call back later this evening for the results of your Xray reading Return if needed Straight to ER if any life threatening symptoms Referrals: José Umanzor MD [Primary Care Provider] - As needed Medical Decision Making - Abdulaziz Inquiry Pt receiving controlled substance: No Abdulaziz was queried for this patient: No Vital Signs: 04/28/21 12:10 04/28/21 13:12 Temperature 97.8 F 97.8 F Temperature Source Oral Pulse Rate 86 Pulse Rate [Right Brachial] 86 Respiratory Rate 16 16 Blood Pressure 136/88 Blood Pressure [Right Arm] 136/88 Blood Pressure Mean [Right Arm] 104 Blood Pressure Source [Right Arm] Automatic Cuff Blood Pressure Position [Right Arm] Sitting 02 Sat by Pulse Oximetry 99 Oxygen Delivery Method Room Air - Radiology Data #1 Image(s): Tib/Fib Image Reviewed: Yes I reviewed the patient's radiology image Preliminary Findings: No Fracture Seen #2 Image(s): Ankle Image Reviewed: Yes I reviewed the patient's radiology image Preliminary Findings: No Fracture Seen #3 Image(s): Foot/Toes Image Reviewed: Yes I reviewed the patient's radiology image Preliminary Findings: No [place]racture [place] [facility] [place] - General Stated complaint: AO fall 10/08 lt foot pain/swelling Time Seen by Provider: 04/28/21 12:43 Mode of Arrival: Ambulatory Source of Information: Patient Limitations: No Limitations Description of Symptoms (Recalled from Triage Doc. by RN): PATIENT STATES SHE FELL OFF A STOOL LAST SATURDAY AND C/O LEFT LOWER LEG AND ANKLE PAIN HEENT Symptoms (Recalled from RN notes): No Resp Symptoms (Recalled from RN notes): No Skin Symptoms (Recalled from RN notes): No MS Symptoms (Recalled from RN notes): Yes Functional Status (Recalled from RN notes): WNL - History of Present Illness Provider Complaint: Patient states that she feel off a barstool about a week ago and she has been having pain in her left lower leg, ankle and foot ever since State that she has been able to walk on it but at times has shooting like pain in her foot and lower leg States that today she was still having pain so she came in - Related Data Home Medications Medication Instructions Recorded Confirmed norgestimate-ethinyl estradioL 1 tab PO DAILY 04/28/21 04/28/21 [Previfem Tablet] Allergies Allergy/AdvReac Type Severity Reaction Status Date / Time diphenhydramine AdvReac Verified 02/14/21 10:00 [From Benadryl] loratadine [From Claritin] AdvReac Altered Verified 02/14/21 10:00 Mental Status - Worker's Comp Is this a Worker's Comp case?: No [facility] History - Hepatitis A Screen Drug use history?: No High risk sexual behaviors?: No History of sexually transmitted infection?: No Currently employed?: No Childcare worker?: No Do you have indoor plumbing?: Yes Do you have electricity?: Yes Attestation statement:: T
[2021-04-28 13:12] VITALS: BP 136/88; PULSE 86; RESP 16; TEMP 36.6; O2SAT 99
== END 2021-04-28 13:16 | disposition home or self-care (01) ==
PROVIDERS: Emergency Provider Nurse Practitioner; PCP Emergency Medicine
DX: S80.12XA Contusion of left lower leg, initial encounter (principal); W07.XXXA Fall from chair, initial encounter; Z88.8 Allergy status to other drugs, medicaments and biological substances
CPT/HCPCS: 73590; 73610; 73630; 99202; G0463

== ENCOUNTER → 2021-07-19 10:23 | Outpatient (CLI) | payer OTHER, SELFPAY | PROVIDERS: PCP Emergency Medicine; Visit Provider Nurse Practitioner | DX: U07.1 COVID-19 (principal) | CPT/HCPCS: C9803; U0003; U0005 ==

== ENCOUNTER → 2021-08-01 13:14 | Outpatient (CLI) | payer OTHER, SELFPAY ==
--- NOTE | 2021-08-01 13:19 | XR_ITS ---
FINAL REPORT CLINICAL HISTORY: BL knee pain COMPARISON: April 28, 2021 FINDINGS: LEFT KNEE Four views of the left knee were obtained. There is no acute fracture or dislocation. Visualized joint spaces are normally aligned. There is sclerosis of the proximal medial tibial metaphysis of uncertain etiology, but may represent an old fracture. Soft tissues are unremarkable. IMPRESSION: Sclerosis of proximal medial tibial metaphysis, stable. Reviewed, Interpreted and Dictated by Young Huddleston III, MD Transcribed by Chanelle Todd Authenticated by Young Huddleston III, MD on 08/01/2021 02:32:35 PM [facility]
--- NOTE | 2021-08-01 13:19 | XR_ITS ---
FINAL REPORT CLINICAL HISTORY: LT tib/fib pain FINDINGS: LEFT TIBIA FIBULA 2 views were obtained. There is no acute fracture or dislocation. The joint spaces are intact. There is sclerosis of the proximal medial tibial metaphysis of uncertain etiology but may represent a prior fracture. There is no soft tissue abnormality. IMPRESSION: Sclerosis of the proximal medial tibial metaphysis of uncertain etiology, may represent prior fracture. Reviewed, Interpreted and Dictated by Young Huddleston III, MD Transcribed by Chanelle Todd Authenticated by Young Huddleston III, MD on 08/01/2021 02:32:36 PM [facility]
--- NOTE | 2021-08-01 13:19 | XR_ITS ---
FINAL REPORT CLINICAL HISTORY: BL knee pain FINDINGS: RIGHT KNEE Four views of the right knee were obtained. There is no acute fracture or dislocation. Visualized joint spaces are normally aligned. Soft tissues are unremarkable. IMPRESSION: No acute bony abnormality. Reviewed, Interpreted and Dictated by Young Huddleston III, MD Transcribed by Chanelle Todd Authenticated by Young Huddleston III, MD on 08/01/2021 02:32:26 PM [facility]
== END ==
PROVIDERS: PCP Emergency Medicine; Visit Provider Orthopaedic Surgery
DX: M79.605 Pain in left leg (principal); M25.561 Pain in right knee; M25.562 Pain in left knee
CPT/HCPCS: 73564; 73590

== ENCOUNTER → 2021-08-08 17:34 | Outpatient (CLI) | payer OTHER, SELFPAY ==
[2021-08-11 08:15] LABS: Neisseria gonorrhoeae, NAA Negative (Negative)
== END ==
PROVIDERS: Visit Provider Obstetrics & Gynecology
DX: N39.0 Urinary tract infection, site not specified (principal)
CPT/HCPCS: 87491; 87591

== ENCOUNTER → 2022-01-19 08:32 | Outpatient (CLI) | payer OTHER, SELFPAY ==
--- NOTE | 2022-01-19 08:37 | XR_ITS ---
FINAL REPORT CLINICAL HISTORY: knee pain COMPARISON: August 01, 2021 FINDINGS: 4 views of the left knee were obtained. There is no acute fracture or dislocation. The joint spaces are intact. There is a presumed a bone island in the distal femur. There is a sclerotic area in the proximal medial tibia that may represent an old healed fibrous cortical defect. The soft tissues are unremarkable. IMPRESSION: No acute process. Stable exam. Reviewed, Interpreted and Dictated by Young Huddleston III, MD Transcribed by Soto Pulliam Authenticated and [facility]
== END ==
PROVIDERS: PCP Emergency Medicine; Visit Provider Orthopaedic Surgery
DX: M25.562 Pain in left knee (principal)
CPT/HCPCS: 73564

== ENCOUNTER → 2022-03-13 14:05 | Outpatient (CLI) | payer OTHER, SELFPAY | PROVIDERS: PCP Emergency Medicine; Visit Provider Nurse Practitioner | DX: Z11.1 Encounter for screening for respiratory tuberculosis (principal) | CPT/HCPCS: 86580 ==

== ENCOUNTER 2022-06-25 10:25 | Emergency (ER) | payer OTHER, SELFPAY ==
[2022-06-25 12:55] VITALS: BP 139/91; PULSE 96; RESP 16; TEMP 37.2; O2SAT 98; BMI 43.4
[2022-06-25 12:56] LABS: Coronavirus 19, PCR Not Detected (NotDetected); Influenza A, PCR Not Detected (NotDetected); Influenza B, PCR Not Detected (NotDetected)
--- NOTE | 2022-06-25 12:56 | EXP.UTC ---
Discharge Plan Disposition Patient Disposition: Home, Self-Care Condition: Good Prescriptions Prescriptions: New azithromycin [Zithromax] 250 mg tablet 250 mg PO UD DOSE PK Qty: 6 0RF Rx Instructions: Take two (2) tablets today, then one (1) tablet days #2 thru #5 [id number] [Bromfed DM] 2-30-10 mg/5 mL Syrup 5 ml PO Q6H PRN (Reason: Cough) Qty: 240 0RF ondansetron 4 mg Tablet,Disintegrating 4 mg PO Q8H PRN (Reason: Nausea) Qty: 20 0RF No Action bupropion HCl [Wellbutrin XL] 150 mg tablet extended release 24 hr 150 mg PO DAILY Qty: 30 1RF Referrals Follow up/Referrals: Irma Orozco APRN [Primary Care Provider] - See instructions Activity Restrictions/Add. Instructions Additional Instructions/Restrictions: Drink plenty of fluids. Take tylenol or ibuprofen for pain or fever. Take the medications as directed. Follow up with your regular doctor. GO TO THE ER FOR ANY WORSENING SYMPTOMS Quarantine until you know the results of your covid-19 test. Notify your school or workplace of your results and follow their instructions regarding return to work/school. Clinical Impressions Clinical Impression: Acute viral syndrome, Exposure to 2019 novel coronavirus Instructions Patient Instructions: DI for Viral Syndrome, Coronavirus Disease 2019, Preventing the Spread of Coronavirus Discharge Instructions Discharge ED Provider: Vladimir Seo [facility] [place] HPI General Stated complaint: cough,sore throat,headache,SOA Time Seen by Provider: 06/25/22 12:56 History of Present Illness Provider Complaint: She states that since yesterday she has had sore throat, chills, body aches, and a dry cough. Her mother has similar symptoms and tested positive for covid-19 yesterday. Related Data Previous Rx's Medication Instructions Recorded bupropion HCl 150 mg 24 hr tablet, 150 mg PO DAILY #30 tabs 06/13/22 extended release (Wellbutrin XL) azithromycin 250 mg tablet 250 mg PO UD DOSE PK #6 tabs 06/25/22 (Zithromax) mecqpcegcgpttfs-kqgkilmswhuggzm-IG 5 ml PO Q6H PRN Cough #240 mL 06/25/22 2 mg-30 mg-10 mg/5 mL oral syrup (Bromfed DM) ondansetron 4 mg disintegrating 4 mg PO Q8H PRN Nausea #20 tabs 06/25/22 tablet Allergies Allergy/AdvReac Type Severity Reaction Status Date / Time diphenhydramine AdvReac Verified 06/13/22 09:57 [From Benadryl] loratadine [From Claritin] AdvReac Altered Verified 06/13/22 09:57 Mental Status [facility] Disclaimer: The information contained in this section may have been updated after the patient was seen, as this information can be updated by other users. Medical History Anxiety Depression Endometriosis Normal Pap smear PCOS (polycystic ovarian syndrome) PCOS (polycystic ovarian syndrome) Surgical History History of placement of ear tubes History of tonsillectomy and adenoidectomy Status post oophorectomy Family History Sister Stroke Social History Smoking Status: Never smoker alcohol intake: current substance use type: denies use current occupational status: employed Travel in the last 8 weeks: None household members: family housing: house lives independently: Yes marital status: single number of children: 0 ROS Obtained: Yes All systems reviewed & no additional complaints except as documented Constitutional Constitutional: Reports chills and Reports fever(s) Eyes Eyes: Denies eye discharge ENT Ears, Nose, Mouth, and Throat: Reports as per HPI Cardiovascular Cardiovascular: Denies chest pain Respiratory Respiratory: Denies chest congestion and Reports cough Gastrointestinal Gastrointestingal: Reports nausea; Denies abdominal pain, constipation, cramping, diarrhea or vomi
[2022-06-25 13:07] LABS: UTC Strep Screen (Rapid) Negative (Negative)
[2022-06-25 13:38] VITALS: BP 139/91; PULSE 96; RESP 16; TEMP 37.2
== END 2022-06-25 13:39 | disposition home or self-care (01) ==
PROVIDERS: Emergency Provider Nurse Practitioner Family; PCP Nurse Practitioner Family
DX: R05.9 Cough, unspecified (principal); J02.9 Acute pharyngitis, unspecified; Z20.822 Contact with and (suspected) exposure to COVID-19; B34.9 Viral infection, unspecified
CPT/HCPCS: 87880; 99212; C9803; G0463; U0003; U0005

== ENCOUNTER → 2022-06-28 11:38 | Outpatient (CLI) | payer OTHER, SELFPAY ==
[2022-06-28 11:52] LABS: Adenovirus,PCR Not Detected (NotDetected); Bordetella Pertussis Not Detected (NotDetected); Chlamydophila Pneumoniae, PCR Not Detected (NotDetected); Coronavirus 19, PCR Not Detected (NotDetected); Coronavirus 229E Not Detected (NotDetected); Coronavirus NL63 Not Detected (NotDetected); Coronavirus OC43 Not Detected (NotDetected); Coronovirus HKU1,PCR Not Detected (NotDetected); Human Metapneumovirus Not Detected (NotDetected); Influenza A, PCR Not Detected (NotDetected); Influenza AH1, 2009 Not Detected (NotDetected); Influenza AH1, PCR Not Detected (NotDetected); Influenza AH3,PCR Not Detected (NotDetected); Influenza B, PCR Not Detected (NotDetected); Mycoplasma Pneumoniae, PCR Not Detected (NotDetected); Parainfluenza 1, PCR Not Detected (NotDetected); Parainfluenza 2, PCR Not Detected (NotDetected); Parainfluenza 3, PCR Not Detected (NotDetected); Parainfluenza 4, PCR Not Detected (NotDetected); Respiratory Syncytial Virus Not Detected (NotDetected); Rhinovirus/Enterovirus Not Detected (NotDetected)
--- NOTE | 2022-06-28 11:53 | XR_ITS ---
FINAL REPORT CLINICAL HISTORY: cough, sore throat, nausea, headache COMPARISON: 12/30/2020 FINDINGS: 2 views of the chest were obtained . The heart is normal in size. The mediastinum is within normal limits. The lungs are clear. There is no pneumothorax. Osseous structures are unremarkable. IMPRESSION: No acute cardiopulmonary process. Reviewed, Interpreted and Dictated by Young Huddleston III, MD Transcribed by Amy Torres Authenticated and [facility]
== END ==
PROVIDERS: PCP Family Medicine; Visit Provider Family Medicine
DX: J06.9 Acute upper respiratory infection, unspecified (principal); R05.9 Cough, unspecified; J02.9 Acute pharyngitis, unspecified; R11.0 Nausea; R51.9 Headache, unspecified
CPT/HCPCS: 71046; 87581; 87632; 87798; C9803; U0003; U0005

== ENCOUNTER → 2022-12-25 07:34 | Outpatient (CLI) | payer BC, OTHER, SELFPAY ==
[2022-12-25 09:12] LABS: Basophils % 0.4 % (0.1-2.0); Eosinophils # 0.2 K/mm3 (0.0-0.4); Eosinophils % 2.9 % (0.1-12.0); Hematocrit 40.4 % (37.0-47.0); Hemoglobin 12.9 g/dL (12.2-16.2); Lymphocytes # 1.9 K/mm3 (0.7-4.5); Lymphocytes % 24.5 % (10-50); Mean Corpuscular HGB Conc 31.9 g/dL (31.8-35.4); Mean Corpuscular Hemoglobin 25.6 pg (27.0-31.2); Mean Corpuscular Volume 80.2 fl (81-99); Mean Platelet Volume 9.1 fl (7.4-10.4); Monocytes # 0.4 K/mm3 (0.1-1.0); Monocytes % 5.5 % (1.7-9.3); Neutrophils # 5.3 K/mm3 (1.8-7.8); Neutrophils % 66.8 % (37.0-80.0); Platelet Count 255 K/mm3 (142-424); Red Blood Count 5.03 M/mm3 (4.20-5.40); Red Cell Distribution Width 15.8 % (11.5-17.5); White Blood Count 7.9 K/mm3 (4.8-10.8)
[2022-12-25 09:24] LABS: Alanine Aminotransferase 16 U/L (12-78); Albumin/Globulin Ratio 1.4 (1.1-1.8); Alkaline Phosphatase 109 U/L (38-126); Anion Gap 16.3 mEq/L (5-15); Aspartate Amino Transferase 21 U/L (14-36); Bilirubin,Total 0.4 mg/dl (0.2-1.3); Blood Urea Nitrogen 13 mg/dl (7-17); Calcium 9.1 mg/dl (8.4-10.2); Carbon Dioxide 23 mmol/L (22.0-30.0); Chloride 106 mmol/L (98-107); Chol/HDL Ratio 4.5 (1-3.5); Cholesterol 177 mg/dl (140-200); Estimated Glomerular Filt Rate 87 ml/min (>60); GFR (African American) 106 ML/MIN (>60); Globulin 2.9 g/dL (1.3-3.2); Glucose 81 mg/dl (74-100); HDL Cholesterol 39 mg/dl (40-60); Potassium 4.3 mmoL/L (3.5-5.1); Sodium 141 mmol/L (136-145); Total Protein,Serum 6.9 g/dl (6.3-8.2); Triglycerides 169 mg/dl (30-150); VLDL Cholesterol 34 mg/dL (0-40)
[2022-12-25 09:34] LABS: Hemoglobin A1C 5.1 % (4.0-6.0)
[2022-12-25 09:36] LABS: Direct LDL Cholesterol 104.88 mg/dL (100-129)
[2022-12-25 09:41] LABS: 25-OH Vitamin D, Total 56.2 ng/mL (30-100)
[2022-12-25 09:55] LABS: Thyroid Stimulating Hormone 2.21 uIU/mL (0.465-4.68)
[2022-12-25 10:14] LABS: Vitamin B12 475 pg/mL (239-931)
== END ==
PROVIDERS: PCP Nurse Practitioner Family; Visit Provider Nurse Practitioner Family
DX: R53.83 Other fatigue (principal); Z13.1 Encounter for screening for diabetes mellitus; Z13.220 Encounter for screening for lipoid disorders; F41.8 Other specified anxiety disorders; E66.01 Morbid (severe) obesity due to excess calories; Z68.41 Body mass index [BMI] 40.0-44.9, adult
CPT/HCPCS: 36415; 80053; 80061; 82306; 82607; 83036; 84443; 85025

== ENCOUNTER → 2023-05-21 15:47 | Outpatient (CLI) | payer OTHER, SELFPAY | LOC: RT 15:48 | PROVIDERS: PCP Nurse Practitioner Family; Visit Provider Nurse Practitioner Family | DX: R00.0 Tachycardia, unspecified (principal) | CPT/HCPCS: 93225 ==

== ENCOUNTER → 2023-06-03 14:29 | Outpatient (CLI) | payer OTHER, SELFPAY | LOC: RT 14:35 | PROVIDERS: PCP Nurse Practitioner Family; Visit Provider Internal Medicine | DX: R00.0 Tachycardia, unspecified (principal); R00.2 Palpitations; R53.83 Other fatigue; E66.9 Obesity, unspecified; Z68.41 Body mass index [BMI] 40.0-44.9, adult | CPT/HCPCS: 85025; 93270 ==

== ENCOUNTER → 2023-06-03 14:57 | Outpatient (CLI) | payer OTHER, SELFPAY ==
[2023-06-05 18:29] LABS: Basophils % 0.8 % (0.1-2.0); Eosinophils # 0.2 K/mm3 (0.0-0.4); Eosinophils % 3.4 % (0.1-12.0); Hematocrit 43.6 % (37.0-47.0); Hemoglobin 13.8 g/dL (12.2-16.2); Lymphocytes # 1.6 K/mm3 (0.7-4.5); Lymphocytes % 29.6 % (10-50); Mean Corpuscular HGB Conc 31.6 g/dL (31.8-35.4); Mean Corpuscular Hemoglobin 26.5 pg (27.0-31.2); Mean Corpuscular Volume 83.7 fl (81-99); Mean Platelet Volume 9.8 fl (7.4-10.4); Monocytes # 0.3 K/mm3 (0.1-1.0); Monocytes % 5.9 % (1.7-9.3); Neutrophils # 3.3 K/mm3 (1.8-7.8); Neutrophils % 60.2 % (37.0-80.0); Platelet Count 293 K/mm3 (142-424); Red Blood Count 5.21 M/mm3 (4.20-5.40); Red Cell Distribution Width 15.3 % (11.5-17.5); White Blood Count 5.6 K/mm3 (4.8-10.8)
[2023-06-05 18:33] LABS: Alanine Aminotransferase 16 U/L (12-78); Alkaline Phosphatase 136 U/L (38-126); Anion Gap 12.5 mEq/L (5-15); Aspartate Amino Transferase 34 U/L (14-36); Bilirubin,Direct 0.2 mg/dl (0.0-0.4); Bilirubin,Indirect 0.2 mg/dL (0.0-0.9); Bilirubin,Total 0.4 mg/dl (0.2-1.3); Bilirubin,Unconjugated 0.2 mg/dL (0.0-1.1); Blood Urea Nitrogen 14 mg/dl (7-17); Calcium 8.7 mg/dl (8.4-10.2); Carbon Dioxide 26 mmol/L (22.0-30.0); Chloride 104 mmol/L (98-107); Chol/HDL Ratio 4.8 (1-3.5); Cholesterol 176 mg/dl (140-200); Estimated Glomerular Filt Rate 67 ml/min (>60); GFR (African American) 81 ML/MIN (>60); Glucose 83 mg/dl (74-100); HDL Cholesterol 37 mg/dl (40-60); Magnesium 1.9 mg/dl (1.6-2.3); Potassium 4.5 mmoL/L (3.5-5.1); Sodium 138 mmol/L (136-145); Triglycerides 140 mg/dl (30-150); VLDL Cholesterol 28 mg/dL (0-40)
[2023-06-05 18:44] LABS: Direct LDL Cholesterol 108.33 mg/dL (100-129)
[2023-06-05 18:48] LABS: Free T4 (Free Thyroxine) 1.28 ng/dl (0.78-2.19)
[2023-06-05 19:02] LABS: Thyroid Stimulating Hormone 1.38 uIU/mL (0.465-4.68)
== END ==
PROVIDERS: PCP Internal Medicine; Visit Provider Internal Medicine
DX: R00.0 Tachycardia, unspecified (principal); R00.2 Palpitations; R53.83 Other fatigue; E66.9 Obesity, unspecified; Z68.41 Body mass index [BMI] 40.0-44.9, adult
CPT/HCPCS: 84443

== ENCOUNTER → 2023-06-05 23:35 | Outpatient (CLI) | payer OTHER, SELFPAY | LOC: LAB.DROPOF 23:36 | PROVIDERS: PCP Nurse Practitioner Family; Visit Provider Nurse Practitioner | DX: R00.2 Palpitations (principal); R00.0 Tachycardia, unspecified; R53.83 Other fatigue; E66.9 Obesity, unspecified; Z68.41 Body mass index [BMI] 40.0-44.9, adult; Z79.899 Other long term (current) drug therapy | CPT/HCPCS: 80048; 80061; 80076; 83735; 84439; 85025 ==

== ENCOUNTER → 2023-06-10 13:19 | Outpatient (CLI) | payer OTHER, SELFPAY ==
--- NOTE | 2023-06-10 13:20 | CA_ITS ---
APPROVED REPORT EXAM: Comprehensive 2D, Doppler, and color-flow Echocardiogram Capability Lead: Palak Lama CRT Ht: 5 ft 7 in Wt: 262lbs BSA: 2.27 BP: 157/104 mmHg Indications: Palpitations, Fatigue, Tachycardia 2D Dimensions LVOT 2.04 cm (M/F) 1.5-2.5 LA Volume 59.20 mL LA Volume Index 26.08 mL/m2 (M/F) 16-34 M-Mode Dimensions RVDd 2.13 cm (0.9-2.6) LA Diam 3.59 cm (1.9-4.0) LVDd 4.94 cm (3.5-5.7) Ao Diam 4.04 cm (2.0-3.7) LVDs 3.57 cm (3.5-5.7) IVSd 0.94 cm (0.6-1.1) PWd 1.00 cm (0.6-1.1) EF (Teich) 53.70% FS 27.70% EDV (Teich) 115.00 mL TAPSE 1.00 (<1.7) ESV (Teich) 53.30 mL LV Diastology E Decel Time 120.00 (160-240 msec) E/A Ratio 1.34 MED E' 7.70 (< 7 cm/sec) MED A' 11.70 cm/s E'/MED E' Ratio 8.40 (>14) LAT E' 9.10 (<10 cm/sec) LAT A' 15.30 cm/s E/LAT E' Ratio 7.11 (>14) Aortic Valve AO Peak GR. 7.70 mmHg Mitral Valve MV A Velocity 48.00 (40-130 cm/s) E/A Ratio 1.34 MV Decel. Time 120.00 (160-240 ms) Pulmonary Valve PV Peak Velocity 102.00 (50-150 cm/s) Tricuspid Valve TR P. Velocity 184.00 cm/s RAP Estimate 10.00 mmHg RVSP 23.60 mmHg Left Ventricle The left ventricle is normal size. The left ventricular systolic function is normal. The left ventricular ejection fraction is within the normal range. There is normal left ventricular wall thickness. There is normal LV segmental wall motion. The left ventricular diastolic function is normal. LVEF is 55%. Right Ventricle The right ventricle is normal size. The right ventricular systolic function is normal. Atria The left atrium size is mildly dilated. The right atrium size is normal. The interatrial septum is not well-visualized. Aortic Valve The aortic valve opens well. There is no aortic valvular stenosis. No aortic regurgitation is present. Mitral Valve The mitral valve is normal in structure. No evidence of mitral valve stenosis. Mild mitral regurgitation. Tricuspid Valve The tricuspid valve leaflets are thin and pliable. Trace tricuspid regurgitation. There is insufficient TR jet to estimate RVSP. Pulmonic Valve The pulmonary valve is normal in structure. Trace pulmonic regurgitation. Great Vessels The aortic root is normal in size. The ascending aorta is normal in size. IVC is normal in size and collapses >50% with inspiration. Pericardium There is no pericardial effusion. Other Information Study Quality: Adequate Conclusion Normal biventricular systolic function. Mild LA dilation. Mild MR. Electronically signed by : Zaida Jackson MD 06/10/2023 23:43:35
== END ==
LOC: RT 13:20
PROVIDERS: PCP Nurse Practitioner Family; Visit Provider Internal Medicine
DX: R00.0 Tachycardia, unspecified (principal); R00.2 Palpitations; R53.83 Other fatigue; E66.9 Obesity, unspecified; Z68.41 Body mass index [BMI] 40.0-44.9, adult
CPT/HCPCS: 93306

== ENCOUNTER 2023-07-15 13:42 | Emergency (ER) | payer OTHER, SELFPAY ==
[2023-07-15 15:30] VITALS: BP 141/90; PULSE 96; RESP 19; TEMP 36.8; O2SAT 99; BMI 41.8
--- NOTE | 2023-07-15 15:56 | EXP.UTC ---
Discharge Plan Disposition Patient Disposition: Home, Self-Care Condition: Good Prescriptions Prescriptions: No Action bupropion HCl [Wellbutrin XL] 300 mg tablet extended release 24 hr 300 mg PO DAILY Qty: 90 3RF Referrals Follow up/Referrals: Yasemin Schneider APRN [Primary Care Provider] - See instructions Activity Restrictions/Add. Instructions Additional Instructions/Restrictions: *Monitor Temp, Over the counter Motrin or Tylenol as directed/as needed Tylenol every 4 hours and Motrin every 6 hours (as long as your family doctor has told you that you can take it) for fever or pain. and straight to ER if unable to lower temp less than 101.0 after medication given *Warm salt water gargles may help to soothe the throat *Throat Lozenges? *Warm fluids like tea with honey may help to soothe the throat? *Sleep elevated *Humidifier/Vaporizer Follow up IMMEDIATELY for new or worsening symptoms or no Noticeable improvement over the next 48-72 hours. 911 for difficulty breathing or swallowing Clinical Impressions Clinical Impression: Bronchitis Instructions Patient Instructions: Sore Throat, Cough, DI for Sinusitis Discharge ED Provider: Mari Ramirez [facility] General Stated complaint: sore throat, cough, congestion Mode of Arrival: Ambulatory Source of Information: Patient Limitations: No Limitations Time Seen by Provider: 07/15/23 15:56 Description of Symptoms (Recalled from Triage Doc. by RN): PATIENT C/O COUGH, CHEST CONGESTION, HOARSENESS, AND FATIGUE X 2 DAYS HEENT Symptoms (Recalled from RN notes): Yes Resp Symptoms (Recalled from RN notes): Yes Skin Symptoms (Recalled from RN notes): No MS Symptoms (Recalled from RN notes): No Functional Status (Recalled from RN notes): WNL History of Present Illness Provider Complaint: Patient states that she has been having cough, chest congestion, loss of voice and hoarseness, and fatigue for the last couple of days States that today she wasnt feeling any better so she came in to get checked out Related Data Previous Rx's Medication Instructions Recorded bupropion HCl 300 mg 24 hr tablet, 300 mg PO DAILY #90 tabs 04/04/23 extended release (Wellbutrin XL) Allergies Allergy/AdvReac Type Severity Reaction Status Date / Time diphenhydramine AdvReac Verified 06/24/23 14:55 [From Benadryl] loratadine [From Claritin] AdvReac Altered Verified 06/24/23 14:55 Mental Status Worker's Comp Is this a Worker's Comp case?: No [facility] Disclaimer: The information contained in this section may have been updated after the patient was seen, as this information can be updated by other users. Medical History Acute viral syndrome Anxiety Depression Endometriosis Exposure to 2019 novel coronavirus Normal Pap smear 02/14/2021 PCOS (polycystic ovarian syndrome) PCOS (polycystic ovarian syndrome) Rash URI (upper respiratory infection) Surgical History History of placement of ear tubes History of tonsillectomy and adenoidectomy Status post oophorectomy left Family History Sister Stroke Social History Smoking Status: Former smoker years smoked: 2 smoking status stop date: 2020 was social smoker less than 5 cigarrattes alcohol intake: former substance use type: denies use current occupational status: employed Travel in the last 8 weeks: None household members: family housing: house lives independently: Yes marital status: single number of children: 0 ROS Obtained: Yes All systems reviewed & no additional complaints except as documented and Yes Systems reviewed as appropriate & no additional complaints except as documented Constitutional Constitutional: Reports system reviewed and no additional complaints, except as documented and Reports as per HPI ENT Ears, Nose, Mouth, and Throat: Reports system reviewed and no additional complaints, except as documented, Reports as per HPI, Reports sinus pain and Reports sinus pressure Cardiovascular Cardiovascular: Reports system reviewed and no additional complaints, except as documented and Reports as per HPI Respiratory Respiratory: Reports system reviewed and no additional complaints, except as documented, Reports as per HPI, Reports chest congestion and Reports cough Gastrointestinal Gastrointestingal: Reports system reviewed and no additional complaints, except as documented and as per HPI Physical Exam General General appearance: alert and in no apparent distress ENT ENT exam: Present mucous membranes moist Expanded ENT Exam Nose exam: Present sinus tenderness Throat exam: Present other (Pharygeal erythema noted with PND) Respiratory Respiratory exam: Present normal lung sounds bilaterally; Absent respiratory distress or wheezes Cardiovascular Cardiovascular exam: Present regular rate, normal rhythm and normal heart sounds Abdominal Exam Abdominal exam: Present soft and normal bowel sounds; Absent distention or tenderness Neurological Exam Neurological exam: Present alert, oriented X3 and normal gait Medical Decision Making Abdulaziz Inquiry Pt receiving controlled substance: No Abdulaziz was queried for this patient: No Vital Signs: 07/15/23 15:30 Temperature 98.3 F Temperature Source Oral Pulse Rate [Left Brachial] 96 H Respiratory Rate 19 Blood Pressure [Left Arm] 141/90 H Blood Pressure Mean [Left Arm] 107 Blood Pressure Source [Left Arm] Automatic Cuff Blood Pressure Position [Left Arm] Sitting 02 Sat by Pulse Oximetry 99 Oxygen Delivery Method Room Air Lab Data Lab results reviewed: Yes I reviewed the patient's lab results.
[2023-07-15 16:04] LABS: UTC Influenza A Antigen Negative (Negative); UTC Influenza B Antigen Negative (Negative)
[2023-07-15 16:19] VITALS: BP 141/90; PULSE 96; RESP 19; TEMP 36.8; O2SAT 99
== END 2023-07-15 16:22 | disposition home or self-care (01) ==
PROVIDERS: Emergency Provider Nurse Practitioner; PCP Nurse Practitioner Family
DX: J20.9 Acute bronchitis, unspecified (principal); J01.90 Acute sinusitis, unspecified; R07.0 Pain in throat; R09.89 Other specified symptoms and signs involving the circulatory and respiratory systems; R53.83 Other fatigue
CPT/HCPCS: 87804; 99212; 99214; G0463

== ENCOUNTER 2023-08-05 18:24 | Outpatient (CLI) | payer OTHER, SELFPAY ==
[2023-08-05 18:03] LABS: Adenovirus,PCR Not Detected (NotDetected); Coronavirus 229E Not Detected (NotDetected); Coronavirus NL63 Not Detected (NotDetected); Coronavirus OC43 Not Detected (NotDetected); Coronovirus HKU1,PCR Not Detected (NotDetected); Human Metapneumovirus Not Detected (NotDetected); Influenza A, PCR Not Detected (NotDetected); Influenza AH1, 2009 Not Detected (NotDetected); Influenza AH1, PCR Not Detected (NotDetected); Influenza AH3,PCR Not Detected (NotDetected); Influenza B, PCR Not Detected (NotDetected); Parainfluenza 1, PCR Not Detected (NotDetected); Parainfluenza 2, PCR Not Detected (NotDetected); Parainfluenza 3, PCR Not Detected (NotDetected); Parainfluenza 4, PCR Not Detected (NotDetected); Respiratory Syncytial Virus Not Detected (NotDetected); Rhinovirus/Enterovirus Not Detected (NotDetected)
[2023-08-05 23:35] LABS: Coronavirus 19, PCR Detected (NotDetected)
== END 2023-08-05 23:59 ==
LOC: LAB.DROPOF 18:25
PROVIDERS: PCP Family Medicine; Visit Provider Family Medicine
DX: U07.1 COVID-19 (principal); R53.83 Other fatigue; R05.9 Cough, unspecified; R09.89 Other specified symptoms and signs involving the circulatory and respiratory systems
CPT/HCPCS: 87632; 87635

== ENCOUNTER 2023-08-19 17:57 | Outpatient (CLI) | payer OTHER, SELFPAY ==
[2023-08-19 19:48] LABS: Adenovirus,PCR Not Detected (NotDetected); Coronavirus 19, PCR Not Detected (NotDetected); Coronavirus 229E Not Detected (NotDetected); Coronavirus NL63 Not Detected (NotDetected); Coronavirus OC43 Not Detected (NotDetected); Coronovirus HKU1,PCR Not Detected (NotDetected); Human Metapneumovirus Not Detected (NotDetected); Influenza A, PCR Not Detected (NotDetected); Influenza AH1, 2009 Not Detected (NotDetected); Influenza AH1, PCR Not Detected (NotDetected); Influenza AH3,PCR Not Detected (NotDetected); Influenza B, PCR Not Detected (NotDetected); Parainfluenza 1, PCR Not Detected (NotDetected); Parainfluenza 2, PCR Not Detected (NotDetected); Parainfluenza 3, PCR Not Detected (NotDetected); Parainfluenza 4, PCR Not Detected (NotDetected); Respiratory Syncytial Virus Not Detected (NotDetected); Rhinovirus/Enterovirus Not Detected (NotDetected)
[2023-08-19 19:53] LABS: Basophils # 0.1 K/mm3 (0-0.2); Basophils % 0.6 % (0.1-2.0); Eosinophils # 0.2 K/mm3 (0.0-0.4); Eosinophils % 2.3 % (0.1-12.0); Hematocrit 39.7 % (37.0-47.0); Hemoglobin 13.1 g/dL (12.2-16.2); Lymphocytes # 2.6 K/mm3 (0.7-4.5); Lymphocytes % 26.6 % (10-50); Mean Corpuscular HGB Conc 32.9 g/dL (31.8-35.4); Mean Corpuscular Volume 81.9 fl (81-99); Mean Platelet Volume 9.3 fl (7.4-10.4); Monocytes # 0.7 K/mm3 (0.1-1.0); Monocytes % 6.8 % (1.7-9.3); Neutrophils # 6.3 K/mm3 (1.8-7.8); Neutrophils % 63.6 % (37.0-80.0); Platelet Count 316 K/mm3 (142-424); Red Blood Count 4.85 M/mm3 (4.20-5.40); Red Cell Distribution Width 15.8 % (11.5-17.5); White Blood Count 9.9 K/mm3 (4.8-10.8)
== END 2023-08-19 23:59 ==
LOC: LAB 17:59
PROVIDERS: PCP Nurse Practitioner; Visit Provider Nurse Practitioner
DX: J06.9 Acute upper respiratory infection, unspecified (principal); J40 Bronchitis, not specified as acute or chronic
CPT/HCPCS: 85025; 87632; 87635

== ENCOUNTER 2023-10-01 19:22 | Outpatient (CLI) | payer OTHER, SELFPAY ==
[2023-10-01 20:11] LABS: Basophils # 0.1 K/mm3 (0-0.2); Basophils % 1.1 % (0.1-2.0); Eosinophils # 0.2 K/mm3 (0.0-0.4); Eosinophils % 3.2 % (0.1-12.0); Hematocrit 42.5 % (37.0-47.0); Hemoglobin 13.1 g/dL (12.2-16.2); Lymphocytes # 1.8 K/mm3 (0.7-4.5); Mean Corpuscular HGB Conc 30.9 g/dL (31.8-35.4); Mean Corpuscular Volume 87.4 fl (81-99); Mean Platelet Volume 10.3 fl (7.4-10.4); Monocytes # 0.4 K/mm3 (0.1-1.0); Monocytes % 5.9 % (1.7-9.3); Neutrophils # 4.2 K/mm3 (1.8-7.8); Neutrophils % 62.8 % (37.0-80.0); Platelet Count 270 K/mm3 (142-424); Red Blood Count 4.87 M/mm3 (4.20-5.40); Red Cell Distribution Width 15.3 % (11.5-17.5); White Blood Count 6.6 K/mm3 (4.8-10.8)
[2023-10-01 20:31] LABS: Chol/HDL Ratio 5.4 (1-3.5); Cholesterol 211 mg/dl (140-200); HDL Cholesterol 39 mg/dl (40-60); Triglycerides 174 mg/dl (30-150); VLDL Cholesterol 35 mg/dL (0-40)
[2023-10-01 21:01] LABS: Thyroid Stimulating Hormone 1.62 uIU/mL (0.465-4.68)
[2023-10-03 09:59] LABS: Estradiol 83.7 pg/mL (.); FSH 4.2 mIU/mL (.); LH 7.7 mIU/mL (.)
[2023-10-03 11:24] LABS: Insulin Level Total 3.4 uIU/mL (2.6-24.9)
[2023-10-05 18:10] LABS: Free Testosterone (Direct) 3.1 pg/mL (0.0-4.2); Testosterone, Total, LC/MS 23.7 ng/dL (10.0-55.0)
== END 2023-10-01 23:59 ==
LOC: LAB.DROPOF 19:25
PROVIDERS: Nurse Practitioner; PCP Obstetrics & Gynecology; Visit Provider Obstetrics & Gynecology
DX: R53.83 Other fatigue (principal); L68.0 Hirsutism; E78.1 Pure hyperglyceridemia; Z79.899 Other long term (current) drug therapy
CPT/HCPCS: 80061; 82626; 82670; 83001; 83002; 83498; 83525; 84443; 85025

== ENCOUNTER 2025-05-24 15:56 | Outpatient (CLI) | payer OTHER, SELFPAY ==
--- OUTSIDE RECORDS SUMMARY | 2025-05-24 16:00 | XMS_ITS | Clinical Summary ---
Author Organization [facility] Address [address] [place] [address] Care Team Providers Care Materials Management Clerk Name Role Phone Pcp, No Primary Care Provider Unavailabl e Allergies No known active allergies Immunizations Immunization Administration Dates Next Due Hep B, Adolescent or Pediatric 04/08/2015 Hep B, adult 1997,1997 Hib / Hep B 05/17/1998 IPV 1997,1997 Influenza, injectable, quadrivalent, preservativ e free 04/08/2015 MMR 07/20/2002,08/26/1998 Tdap 03/21/2022,07/22/2008 Varicella 05/17/1998 Social History Tobacco Use Types Packs/Day Years Used Date Smoking Tobacco: Never Assessed Comments Unknown Sex and Gender Information Value Date Recorded Sex Assigned at Not on file Legal Sex Female 12:25 PM EDT Gender Identity Not on file Sexual Orientation Not on file Plan of Treatment Health Maintenance Due Date Last Done Comments [facility]-Depression Screening 1997 [facility]-Infant/Child/Adol SDOH Screenings 1997 [facility]-IPV Vaccines (3 of 3 - 4-dose series) 2001 1997, 1997 [facility]-Varicella Vaccines (2 of 2 - 2-dose childhood series) 08/17/2002 05/17/1998 [facility]- SDOH Screenings 2015 [facility]-Adult SDOH Screenings 2015 [facility]-Pap Smear 2018 HPV Vaccines (1 - 3-dose SCDM series) 2024 [id number] Vaccine (2 - 2025-26 season) 2025 03/02/2022 [facility]-Influenza Vaccine (#1) 2025 04/08/2015 [facility]-DTaP,Tdap,and Td Vaccines (3 - Td or Tdap) 03/21/2032 03/21/2022, 07/22/2008 [facility]-Zoster Vaccines (1 of 2) 2047 05/17/1998 [facility]-HIB Vaccines Aged Out 05/17/1998 No longer e ligible based on patient's age to complete this topic [facility]-Hepatitis B Vaccines Completed 015, 05/17/1998, 1997, Additional history exists [facility]-Hepatitis A Vaccines Aged Out No longer eligible based on patient's age to complete this topic [facility]-Pneumococcal Vaccine: Pediatrics (0 to 5 Years) and At-Risk Patients (6 to 49 Years) Aged Out No longer eligible based on patient's age to complete this topic [facility]-Rotavirus Vaccines Aged Out No lo nger eligible based on patient's age to complete this topic [place] [address] MEDICAID Care Teams Materials Management Clerk Relationship Specialty Start Date End Date Ej, [place] [address] PCP - General Family Medicine 03/21/22
--- OUTSIDE RECORDS SUMMARY | 2025-05-24 16:00 | XMS_ITS | Clinical Summary ---
Author Organization [facility] Address [address] [place] [address] Care Team Providers Care Radiology Nurse Name Role Phone Wyatt Yasemin NAM Primary Care Provider [phone] Allergies Active Allergy Reactions Criticality Noted Date Comments Diphenhydramine Other (See Comments) 09/26/2023 loopy Loratadine Other (See Comments) 09/26/2023 loopy Medications norethindrone-et hinyl estradiol-ferrou s fumarate (LOESTIN 24 FE) 1-20 MG-MCG(24) per tablet Take 1 tablet by mouth Daily. 90 tablet 4 09/26/2023 Active Active Problems Problem Noted Date Diagnosed Date Pelvic pain 09/26/2023 Dysmenorrhea 09/26/2023 Pap test, as part of routine gynecological exami [facility] 09/26/2023 Female hirsutism 09/26/2023 Family History Medical History Relation Name Comments Breast cancer Neg Hx Colon cancer Neg Hx Ovarian cancer Neg Hx Uterine cancer Neg Hx Social History Tobacco Use Types Packs/Day Years Used Date Smoking Tobacco: Never Smokeless Tobacco: Never Alcohol Use Standard Drinks/Week Comments Yes 0 (1 standard drink = 0.6 oz pur e alcohol) social Abuse Screen Answer Date Recorded Unsafe at Home or Work/School Not on file Feels Threatened by Someone? Not on file Does Anyone Keep You from Co ntacting Others or Doint Things Outside the Home? Not on file 09/05/2023 Physical Sign of Abuse Present Not on file 0 09/05/2023 Housing Stability Answer Date Recorded Current Living Arrangements Not on file 08/16 Potentially Unsafe Housing Conditions Not on moiz e 09/05/2023 Family and Community Support Answer Jasen e Recorded Help with Day-to-Day Activities Not on file 09/05/2023 Lonely or Isolated Not on file 09/05/2023 Employment Answer Date Recorded Do you want help finding or keeping work or a denise b? Not on file 09/05/2023 Disabilities Answer Date Recorded Concentrating, Remembering, or Making Decisions Difficulty Not on file 09/05/2023 Doing Errands Independently Difficulty Not on fi le 09/05/2023 Education Answer Date Recorded Help with school or training? Not on file Preferred Language Not on file 09/05/2023 Comments Unknown Sex and Gender Information Value Date Recorded Sex Assigned at Female 09/19/2023 11:35 AM EST Legal Sex Female 9:51 AM EST Gender Identity Female 09/19/2023 11:35 AM EST Sexual Orientation Straight 09/19/2023 11 :35 AM EST Last Filed Vital Signs Vital Sign Reading Time Taken Comments Blood Pressure 128/80 09/26/2023 10:36 AM EDT Pulse - - Temperature - - Respiratory Rate - - Oxygen Saturation - - Inhaled Oxygen Concentration - - Weight 122 kg (270 lb) 09/26/2023 10:36 AM EDT Height 172.7 cm (5' 8 ) 09/26/2023 10:36 AM EDT Body Mass Index 41.05 09/26/2023 10:36 AM EDT Plan of Treatment Health Maintenance Due Date Last Done Comments ANNUAL PHYSICAL 09/06/2023 HEPATITIS C SCREENING 09/06/2023 Annual Gynecologic Pelvic an d Breast Exam 09/26/2024 09/26/2023 INFLUENZA VACCINE 02/12/2025 04/19/2024, 05/05/2023, 04/08/2015 PAP SMEAR 09/25/2026 09/26/2023 TDAP/TD VACCINES (3 - Td or Tdap) 03/21/2032 03/21/2022, 07/22/2008 Pneumococcal Vaccine 0-49 Aged Out No longer eligible based on patient's age to complete this topic Procedures Procedure Name Priority Date/Time Associated Diagnosis Comments LIQUID-BASED PAP SMEAR WITH HPV GENOTYPING REGARDLESS OF INTERPRETATION, [facility] ([facility]) Routine 09/26/2023 11:21 AM EDT Pap test, as part of routine gynecological examination from Last 3 Months or Most Recently Relevant to Health Maintenance Results * LIQUID-BASED PAP SMEAR WITH HPV GENOTYPING REGARDLESS OF INTERPRETATION ([facility]AD) (09/26/2023 11:21 AM EDT) Reference Lab Report [facility] [address] [place] [address] or [phone] Juan Bustillos M.D., Dining Room Manager PATIENT NAME [facility] [address] JANELLE MCNEILL [id number] AGE SEX SSN CLIENT REF # [facility] 26 1995 F [id number] [place] [address] REQUESTING Lynne ATTENDING M.D. COPY TORASHAUN CORLEY DATE COLLECTED DATE RECEIVED DATE REPORTED 09/26/2023 09/26/2023 10/01/2023 ThinPrep Pap with Cytyc Imaging DIAGNOSIS: Negative for intraepithelial lesion or malignancy Multiple factors can influence accuracy of Pap tests; therefore, screening at regular intervals is necessary for early cancer detection. SPECIMEN ADEQUACY: SATISFACTORY FOR EVALUATION Transformation zone is present. Partially obscuring bacteria is present. SOURCE OF SPECIMEN: CERVICAL SLIDES: 1 CLINICAL HISTORY: Pap test, as part of routine gynecological examination Pelvic Pain HPV HR-HPV POOL: Negative The Aptima HPV assay is an in vitro nucleic acid amplification test for the qualitative detection of E6/E7 viral messenger RNA from 14 high risk types of HPV in cervical specimens. The high risk HPV types detected include: 16, 18, 31, 33, 35, 39, 45, 51, 52, 56, 58, 59, 66, 68 MECHANICAL TEST TECHNICIAN: DAYANA SALAS (ASCP) CPT CODES: 94826, [id number] 10/01/2023 1:13 PM EDT [facility] ThinPrep Vial Cervix uteri structure / Unknown Collection / Unknown 09/26/2023 11:21 AM EDT 09/26/2023 11:21 AM EDT Rashaun Leos MD PATHOLOGY/CYTOLOGY OR DERABLES Final Result [facility]
[address] [place] [address], from Last 3 Months or Most Recently Relevant to Health Maintenance Insurance R [facility] Care Teams Radiology Nurse Relationship Specialty Start Date End Date Yasemin Schneider APRN [address] [place] [address] [place] [address] PCP - General Nurse Practitioner 09/05/23
[2025-05-24 16:26] LABS: Hematocrit 41.4 % (37.0-47.0); Hemoglobin 13.3 g/dL (12.2-16.2); Immature Granulocytes % 0.4 %; Mean Corpuscular HGB Conc 32.1 g/dL (31.8-35.4); Mean Corpuscular Hemoglobin 27.3 pg (27.0-31.2); Mean Corpuscular Volume 85.0 fl (81-99); Nucleated Red Blood Cells % 0 %; Platelet Count 271 K/mm3 (142-424); Red Blood Count 4.87 M/mm3 (4.20-5.40); Red Cell Distribution Width-SD 43.5 fL; White Blood Count 6.8 K/mm3 (4.8-10.8)
--- NOTE | 2025-05-24 16:30 | MR_ITS ---
PROCEDURE INFORMATION: Exam: MR Head Without and With Contrast Exam date and time: 05/24/2025 4:25 PM Age: 30 years old Clinical indication: Visual disturbance; Additional info: Worsening headaches, pain in the back of her head, 1 month TECHNIQUE: Imaging protocol: Magnetic resonance imaging of the head without and with contrast. Contrast material: PROHANCE; Contrast volume: 22 ml; Contrast route: IV; COMPARISON: CT - HEADWO CT head/brain wo con 11/17/2018 5:57 PM FINDINGS: Brain: Normal. No acute infarct. No hemorrhage. No significant white matter disease. No edema. Cerebral ventricles: Normal. No ventriculomegaly. Bones: Unremarkable. Paranasal sinuses: Left maxillary sinus retention cysts. Mastoid air cells: Normal as visualized. No mastoid effusion. Orbital cavities: Unremarkable. Soft tissues: Unremarkable. IMPRESSION: No acute intracranial findings.
[2025-05-24 16:40] LABS: Urine Pregnancy, HCG Qual. Negative (Negative)
[2025-05-24] MEDS: SODIUM CHLORIDE 0.9% 10ML SYR (RAD ONLY) 10 ML IV (17:04)
[2025-05-24] MEDS: GADOTERIDOL INJ 20ML SYRINGE 22 ML IV (17:04)
[2025-05-24 17:36] LABS: Alanine Aminotransferase 17 U/L (12-78); Albumin Level 4.3 g/dl (3.5-5.0); Albumin/Globulin Ratio 1.3 (1.1-1.8); Alkaline Phosphatase 89 U/L (38-126); Anion Gap 11.2 mEq/L (5-15); Aspartate Amino Transferase 23 U/L (14-36); Bilirubin,Total 0.4 mg/dl (0.2-1.3); Blood Urea Nitrogen 14 mg/dl (7-17); Calcium 9.5 mg/dl (8.4-10.2); Carbon Dioxide 26 mmol/L (22.0-30.0); Chloride 105 mmol/L (98-107); Creatinine,Serum 0.70 mg/dl (0.52-1.04); Estimated Glomerular Filt Rate 100 ml/min (>60); GFR (African American) 121 ML/MIN (>60); Globulin 3.2 g/dL (1.3-3.2); Glucose 82 mg/dl (74-100); Potassium 4.2 mmoL/L (3.5-5.1); Sodium 138 mmol/L (136-145); Total Protein,Serum 7.5 g/dl (6.3-8.2)
[2025-05-24 18:06] LABS: Thyroid Stimulating Hormone 0.94 uIU/mL (0.465-4.68)
[2025-05-24 18:25] LABS: Vitamin B12 638 pg/mL (239-931)
== END 2025-05-24 23:59 | disposition home or self-care (01) ==
LOC: RAD 15:57
PROVIDERS: PCP Nurse Practitioner Family; Visit Provider Specialist
DX: F41.1 Generalized anxiety disorder (principal); G43.809 Other migraine, not intractable, without status migrainosus; R53.83 Other fatigue
CPT/HCPCS: 36415; 70553; 80053; 81025; 82607; 84443; 85025; A9576

== ENCOUNTER 2025-06-07 15:03 | Emergency (ER) | payer OTHER, SELFPAY ==
[2025-06-07 15:11] VITALS: BP 140/82; PULSE 94; RESP 15; TEMP 36.8; O2SAT 99; BMI 37.5
--- OUTSIDE RECORDS SUMMARY | 2025-06-07 15:11 | XMS_ITS | Clinical Summary ---
Author Organization [facility] Address [address] [place] [address] Care Team Providers Care Reconciliation Specialist Name Role Phone Wyatt Yasemin NAM Primary Care Provider Allergies Active Allergy Reactions Criticality Noted Date [...] test, as part of routine gynecological exami [facility] [place] 09/26/2023 Female hirsutism 09/26/2023 Family History Medical [...] Reference Lab Report [facility] [address] [place] [address] or [phone] Juan Bustillos M.D., Stop Attacher PATIENT NAME [facility] [address] [address] JANELLE MCNEILL [id number] AGE SEX SSN CLIENT REF # [facility] 26 1995 F [id number] [place] [address] REQUESTING Lynne ATTENDING M.D. COPY TORASHAUN CORLEY [...] 51, 52, 56, 58, 59, 66, 68 FILL MANAGER: DAYANA SALAS (ASCP) CPT CODES: [id number], [id number] 10/01/2023 1:13 PM EDT [facility] ThinPrep Vial Cervix uteri structure / Unknown Collection / Unknown 09/26/2023 11:21 AM EDT 09/26/2023 11:21 AM EDT Rashaun Leos MD PATHOLOGY/CYTOLOGY OR DERABLES Final Result [facility]
[address] [place] [address], from Last 3 Months or Most Recently Relevant to Health Maintenance Insurance R [facility] Care Teams Reconciliation Specialist Relationship Specialty Start Date End Date Yasemin Schneider APRN [address] [place] [id number] PCP - General Nurse Practitioner 09/05/23
--- OUTSIDE RECORDS SUMMARY | 2025-06-07 15:11 | XMS_ITS | Clinical Summary ---
Author Organization [facility] Address [address] [place] [address] Care Team Providers Care Food Processing Chemist Name Role Phone Pcp, No Primary Care [...] Vaccines (1 - 3-dose SCDM series) 2024 [id number] Vaccine (2 - 2025-26 season) 2025 03/02/2022 [...] patient's age to complete this topic [place] [place] [address] MEDICAID Care Teams Food Processing Chemist Relationship Specialty Start Date End Date Ej, [place] [address] PCP - General Family Medicine 03/21/22
[2025-06-07 15:15] VITALS: BP 144/79; PULSE 100; O2SAT 100
--- NOTE | 2025-06-07 15:21 | US_ITS ---
PROCEDURE INFORMATION: Exam: US Pelvis, Transvaginal, Non-Obstetric Exam date and time: 06/07/2025 3:54 PM Age: 30 years old Clinical indication: Pelvic pain; Additional info: Torsion/history of torsion TECHNIQUE: Imaging protocol: Real-time transvaginal pelvic (non-obstetric) ultrasound with image documentation. Transvaginal imaging was used for better evaluation of the endometrium, adnexa, and/or cervix. COMPARISON: US TRANSVAGINAL 12/26/2020 5:27 PM FINDINGS: Uterus: The uterus measures 7.2 x 4.1 x 5.1 cm. Myometrium appears unremarkable. No myometrial mass. Endometrial stripe appears uniform. Endometrial thickness measures up to 6 mm which is within normal limits. No endometrial mass or fluid collection. Right ovary/adnexa: Right ovary measures 4.6 x 2.5 x 2.8 cm. There are a few small cysts or follicles present within the right ovary. Vascular flow is documented within the right ovary. Color and Doppler imaging performed. Arterial and venous waveforms are present. No evidence of ovarian torsion. Left ovary/adnexa: The left ovary is surgically absent. Urinary bladder: Not assessed on this exam. Intraperitoneal space: Trace amount of free fluid is present within the cul-de-sac which most likely is physiologic given the patient's age. IMPRESSION: Uterus and endometrial stripe appear normal. Right ovary appears unremarkable. Vascular flow is documented within the right ovary. Color and Doppler imaging performed. Arterial and venous waveforms are present. No definitive sonographic evidence of ovarian torsion. Left ovary is surgically absent. Trace amount of free fluid is present within the cul-de-sac which almost certainly is physiologic given the patient's age.
--- NOTE | 2025-06-07 15:24 | ED_ITS ---
<Statement entered by Abhi Howell MD - 06/08/25 01:33> I was consulted by the FRITZ, and we discussed the complexity of the problems being addressed. I approve the treatment and management plan for this patient's care in the emergency department, thus performing a substantive portion of the medical decision making. Abhi Howell MD Discharge Plan Disposition Chief Complaint: Abdominal Pain Prescriptions Prescriptions: No Action propranolol 40 mg tablet 40 mg PO BID Qty: 60 2RF rizatriptan 10 mg tablet,disintegrating See Rx Instructions PO .COMPLEX Qty: 10 5RF Rx Instructions: take 1 tab at onset of headache; if no relief may repeat 1 tab after at least 2 hrs; max = 2 tabs/24 hr PO Referrals Follow up/Referrals: Yasemin Schneider APRN [Primary Care Provider, Family Practice] - See instructions Instructions Patient Instructions: DI for Acute Abdominal Pain Print Language Print Language: Tajik Discharge ED Provider: bAhi Howell General Adult HPI General Chief complaint: Abdominal Pain Stated complaint: Pelvic Pain Time Seen by Provider: 06/07/25 15:09 Mode of Arrival: Ambulatory Source of Information: Patient Description of Symptoms (Recalled from ER Triage Doc. by RN): pt complaining of pelvic pain. has a hx of torsion with tube removal and multiple cysts. states it comes in waves. currently 4/10. gets worse when she eats. History of Present Illness HPI narrative: 30-year-old female presents to the ED for complaint of pelvic pain that is left lower pelvis. Patient has a history of torsion with the tube removal. She says the pain comes in waves. She says it has been hurting for 24 hours with severe intense pain. She hurts more on the left lower side. She has no chance of . No urinary symptoms. She has been bleeding but she is on her period. Related Data Previous Rx's ?Medication ?Instructions ?Recorded propranolol 40 mg tablet 40 mg PO BID #60 tabs rizatriptan 10 mg disintegrating See Rx Instructions P O .COMPLEX 05/20/25 tablet #10 tabs Allergies Allergy/AdvReac Type Severity Reaction Status Date / Time diphenhydramine (From AdvReac Altered Verified 05/18/25 09:53 Benadryl) Mental Status loratadine (From Claritin) AdvReac Altered Verified 05/18/25 09:53 Mental Status [facility] Disclaimer: The information contained in this section may have been updated after the patient was seen, as this information can be updated by other users. Medical History (Updated 05/18/25 @ 11:04 by Nichole Desai MD) Fatigue Episodic migraine Worsening headaches Cervicogenic migraine Migraine headache URI (upper respiratory infection) Exposure to 2019 novel coronavirus Acute viral syndrome Normal Pap smear Anxiety Depression PCOS (polycystic ovarian syndrome) Endometriosis PCOS (polycystic ovarian syndrome) Surgical History History of placement of ear tubes History of tonsillectomy and adenoidectomy Status post oophorectomy Family History Sister Stroke Social History Smoking Status: Never smoker years smoked: 2 smoking status stop date: 2020 was social smoker less than 5 cigarrattes alcohol intake: former substance use type: denies use current occupational status: employed Travel in the last 8 weeks?: None household members: family housing: house lives independently: Yes marital status: single number of children: 0 Have you lived/traveled outside US in past 30 days?: No Contact w/someone who lives/traveled outside US past 30 days?: No Exposure to someone with infectious disease in past 14 days?: No Do you have a fever (greater than 100.4 F or 38 C)?: No Have you tested positive for COVID-19?: No Exposed to someone with COVID-19 in past 14 days?: No Do you have a sore throat?: No Do you have a cough?: No Do you have any weakness?: No Do you have any diarrhea?: No Are you experiencing any unusual bleeding?: No Do you have any muscle aches/pain?: No Do you have any abdominal pain?: No Are you experiencing loss of taste or smell?: No Other Medical History Have you received the Flu Vaccine for this season: No Have you received the Pneumonia Vaccine: No ROS Obtained: Yes Systems reviewed as appropriate & no additional complaints except as documented Constitutional Constitutional: Reports as per HPI Physical Exam General General appearance: alert and in no apparent distress Head Head exam: atraumatic and normocephalic Eye Eye exam: Present PERRL and EOMI ENT ENT exam: Present normal oropharynx and mucous membranes moist Neck Neck exam: Present full ROM and trachea midline Respiratory Respiratory exam: Present normal lung sounds bilaterally Cardiovascular Cardiovascular exam: Present regular rate, normal rhythm, normal heart sounds, +S1 and +S2 Abdominal Exam Abdominal exam: Present soft and normal bowel sounds Abdominal tenderness: Present LLQ and moderate Extremities Exam Extremities exam: Present full ROM and normal capillary refill Neurological Exam Neurological exam: Present alert and oriented X3 Skin Skin exam: Present warm and dry Medical Decision Making Medical Records Screening: Per USPSTF and CDC recommendations, given the prevalence of disease in our region, it is our hospital?s policy to screen for HIV and viral Hepatitis for all patients aged 18 and over and those with ongoing risk factors. Abdulaziz Inquiry Pt receiving controlled substance: No Abdulaziz was queried for this patient: No Vital Signs: 06/07/25 15:11 06/07/25 15:15 Temperature 98.3 F Temperature Source Oral Pulse Rate 100 H Pulse Rate [Right] 94 H Respiratory Rate 15 Blood Pressure 144/79 H Blood Pressure [Right Arm] 140/82 Blood Pressure Mean [Right Arm] 101 02 Sat by Pulse Oximetry 99 100 Oxygen Delivery Method Room Air Room Air Lab Data Lab Results 06/07/25 15:30: WBC 6.7, RBC 4.87, Hgb 13.0, Hct 40.8, MCV 83.8, MCH 26.7 L, MCHC 31.9, RDW 14.5, Plt Count 256, MPV 11.5 H, Neut % (Auto) 57.7, Lymph % (Auto) 29.2, [place] % (Auto) 7.5, Eos % (Auto) 4.3, Baso % (Auto) 0.9, Neut # (Auto) 3.9, Lymph # (Auto) 2.0, [place] # (Auto) 0.5, Eos # (Auto) 0.3, Baso # (Auto) 0.1, PT 10.1, INR 0.90, APTT 25.7, Sodium 141, Potassium 5.1, Chloride 107, Carbon Dioxide 24, Anion Gap 15.1 H, BUN 13, Creatinine 0.80, Estimated Creat Clear 180, Estimated GFR 85, Est GFR ( Amer) 103, Glucose 99, Calcium 8.8, Magnesium 1.8, Total Bilirubin 0.6, AST 41 H, ALT 19, Alkaline Phosphatase 66, Total Protein 7.8, Albumin 4.3, Globulin 3.5 H, Albumin/Globulin Ratio 1.2, Lipase 91, HCG, Quant < 2, HCV Ab BABS w/Rflx PCR Qn Negative, HIV Ag/Ab Combo Qual Negative 06/07/25 17:33: Urine Color Yellow, Urine Appearance Clear, Urine pH 6.0, Ur Specific Beacon 1.010, Urine Protein Negative, Urine Glucose (UA) Negative, Urine Ketones Negative, Urine Blood 3+ A, Urine Nitrate Negative, Urine Bilirubin Negative, Urine Urobilinogen 0.2, Ur Leukocyte Esterase Negative, Urine RBC 10-20, Urine WBC 3-5, Ur Squamous Epith Cells Occasional, Urine Bacteria Trace 06/07/25 15:30 06/07/25 15:30 Orders (Tests/Meds): ED MEDICATIONS Discontinued Medications Generic Name Dose Route Start Last Admin Trade Name Freq PRN Reason Stop Dose Admin Acetaminophen 1,000 mg 06/07/25 15:22 06/07/25 15:35 Acetaminophen 1,000mg/100ml Vial IV 06/07/25 15:23 1,000 mg ONCE ONE Administration Sodium Chloride 1,000 mls @ 999 mls/hr 06/07/25 15:22 06/07/25 15:36 Sod Chlor 0.9% 1000ml Bag IV 06/07/25 16:22 999 mls/hr .Q1H1M ONE Administration Iopamidol 75 ml 06/07/25 17:18 06/07/25 17:18 Iopamidol-370 (76%);100ml Bottle IV 06/07/25 17:19 75 ml ONCE ONE Administration Ketorolac Tromethamine 30 mg 06/07/25 15:22 06/07/25 15:35 Ketorolac 30mg/Ml Vial IV 06/07/25 15:23 30 mg ONCE ONE Administration Ondansetron HCl 4 mg 06/07/25 15:22 06/07/25 15:35 Ondansetron 4mg/2ml Vial IV 06/07/25 15:23 4 mg ONCE ONE Administration Sodium Chloride 10 ml 06/07/25 17:18 06/07/25 17:18 Sodium Chloride 0.9% 10ml Syr (Rad Only) IV 06/07/25 17:19 10 ml ONCE ONE Administration ORDERS Category Date Time Status CT abdomen pelvis w con Stat Cat Scan 06/07/25 17:05 Completed US transvaginal Stat Exams 06/07/25 15:21 Completed CBC [Complete Blood Count Auto Diff] Stat Lab 06/07/25 15:30 Completed Comprehensive Metabolic Panel Stat Lab 06/07/25 15:30 Completed HCG,Quantitative Stat Lab 06/07/25 15:30 Completed HIV Combo Stat Lab 06/07/25 15:30 Completed Hepatitis C Ab Qual. W/ RFX Stat Lab 06/07/25 15:30 Completed Lipase Stat Lab 06/07/25 15:30 Completed Magnesium Stat Lab 06/07/25 15:30 Completed PT INR [Prothrombin Time INR] Stat Lab 06/07/25 15:30 Completed PTT [Activated Partial Thrombo Time] Stat Lab 06/07/25 15:30 Completed Urinalysis and Microscopic Stat Lab 06/07/25 17:33 Completed Medical Decision Narrative: patient is a 30-year-old female presenting to the emergency department for evaluation of left lower quadrant abdominal pain. Patient is hemodynamically stable and nontoxic-appearing upon arrival, afebrile. Differential diagnosis includes torsion, cyst. Workup will be conducted with hematologic labs, specific imaging, provocative tests. Initial inventions include crystalloid bolus, analgesics, antibiotics, etc.. Initial workup reviewed by me hematologic labs are remarkable forWhite count of 6.7, normal H&H, normal electrolytes, BUN and creatinine were normal patient's was negative urine just showed blood but she is on her. Imaging was nonspecific. Ultrasound showed normal vascular flow. CT scan showed nothing acute within the abdomen or pelvis. Patient is stable and she and I discussed following up with GI for further imaging and management of pain. Critical Care Critical Care Time Critical Care Time: No
[2025-06-07] MEDS: ONDANSETRON 4MG/2ML VIAL 4 MG IV (15:35)
[2025-06-07] MEDS: KETOROLAC 30MG/ML VIAL 30 MG IV (15:35)
[2025-06-07] MEDS: ACETAMINOPHEN 1,000MG/100ML VIAL 1000 MG IV (15:35)
[2025-06-07] MEDS: 0.9 % SODIUM CHLORIDE 1000ML 1,000 ML 999 ML IV (15:36)
[2025-06-07 15:42] LABS: Hematocrit 40.8 % (37.0-47.0); Hemoglobin 13.0 g/dL (12.2-16.2); Immature Granulocytes % 0.4 %; Mean Corpuscular HGB Conc 31.9 g/dL (31.8-35.4); Mean Corpuscular Hemoglobin 26.7 pg (27.0-31.2); Mean Corpuscular Volume 83.8 fl (81-99); Nucleated Red Blood Cells % 0 %; Platelet Count 256 K/mm3 (142-424); Red Blood Count 4.87 M/mm3 (4.20-5.40); Red Cell Distribution Width-SD 43.8 fL; White Blood Count 6.7 K/mm3 (4.8-10.8)
[2025-06-07 16:01] LABS: Albumin Level 4.3 g/dl (3.5-5.0); Chloride 107 mmol/L (98-107); Sodium 141 mmol/L (136-145)
[2025-06-07 16:02] LABS: Activated Partial Thrombo Time 25.7 seconds (22.8-30.6); INR 0.90 (0.9-1.1); Potassium 5.1 mmoL/L (3.5-5.1); Prothrombin Time 10.1 seconds (10.1-12.5)
[2025-06-07 16:04] LABS: Alanine Aminotransferase 19 U/L (12-78); Albumin/Globulin Ratio 1.2 (1.1-1.8); Alkaline Phosphatase 66 U/L (38-126); Anion Gap 15.1 mEq/L (5-15); Aspartate Amino Transferase 41 U/L (14-36); Bilirubin,Total 0.6 mg/dl (0.2-1.3); Blood Urea Nitrogen 13 mg/dl (7-17); Calcium 8.8 mg/dl (8.4-10.2); Carbon Dioxide 24 mmol/L (22.0-30.0); Creatinine Clearance Estimated 180 mL/min (50-200); Creatinine,Serum 0.80 mg/dl (0.52-1.04); Estimated Glomerular Filt Rate 85 ml/min (>60); GFR (African American) 103 ML/MIN (>60); Globulin 3.5 g/dL (1.3-3.2); Glucose 99 mg/dl (74-100); Lipase 91 U/L (23-300); Total Protein,Serum 7.8 g/dl (6.3-8.2)
[2025-06-07 16:05] LABS: Magnesium 1.8 mg/dl (1.6-2.3)
--- NOTE | 2025-06-07 16:15 | PC.NURSE ---
pt back from radiology. gave her a warm blanket. no needs voiced @ this time
--- NOTE | 2025-06-07 16:19 | PC.NURSE ---
Patient in [facility]
[2025-06-07 16:51] LABS: Hepatitis C Ab Qual. W/ RFX NEGATIVE (Negative)
--- NOTE | 2025-06-07 17:05 | CT_ITS ---
PROCEDURE INFORMATION: Exam: CT Abdomen And Pelvis With Contrast Exam date and time: 06/07/2025 5:17 PM Age: 30 years old Clinical indication: Abdominal pain; Additional info: Left lower quadrant abdominal pain TECHNIQUE: Imaging protocol: Computed tomography of the abdomen and pelvis with contrast. Radiation optimization: All CT scans at this facility use at least one of these dose optimization techniques: automated exposure control; mA and/or kV adjustment per patient size (includes targeted exams where dose is matched to clinical indication); or iterative reconstruction. Contrast material: ISOVUE; Contrast volume: 75 ml; Contrast route: IV; COMPARISON: CT ABDOMEN PELVIS W CON 12/26/2020 5:11 PM FINDINGS: Lungs: 4 mm subpleural nodule within the anterior aspect of the right middle lobe (image 2 of series 3). 6 mm pleural based calcified nodule within the periphery of the right lower lobe (image 9 of series 3). This has not significantly changed. This appears benign. No suspicious airspace consolidation of the right and left lung base. Heart: No cardiomegaly or pericardial effusion. Diaphragm: No large hiatal hernia. Liver: The liver is diffusely decreased in density, compatible with hepatic steatosis. No suspicious mass or lesion within the liver. Gallbladder and biliary ducts: The gallbladder is unremarkable. No biliary ductal dilatation. Pancreas: The pancreas is unremarkable. Spleen: The spleen is unremarkable. Adrenal glands: The adrenal glands are unremarkable. Kidneys and ureters: Right kidney is unremarkable as visualized. No mass or stone seen. No hydronephrosis. Left kidney is unremarkable as visualized. No mass or stone seen. No hydronephrosis. The ureters appear unremarkable. Stomach and bowel: The stomach appears unremarkable. Small bowel loops are normal in caliber no evidence of a small bowel obstruction. No evidence for acute colitis or acute diverticulitis. Terminal ileum appears unremarkable. Appendix: Normal appendix. Intraperitoneal space: Trace amount of free fluid is present within the pelvis which almost certainly is physiologic. No significant free fluid or free intraperitoneal air. Vasculature: The aorta is unremarkable . Major branch vessels are patent. Iliac arteries are patent. Lymph nodes: There are no enlarged or suspicious intra-abdominal, pelvic or retroperitoneal lymph nodes. Urinary bladder: The bladder appears unremarkable. Reproductive: Uterus appears unremarkable. Fullness of the right ovary which is nonspecific and not well evaluated on this exam. No surrounding inflammatory change or free fluid within the right adnexa. Surgical clips are present within the left adnexa. Please correlate with history of prior resection of the left ovary. Bones/joints: There are no suspicious lytic or sclerotic bone lesions. No acute fracture. Soft tissues: Soft tissues are unremarkable as visualized. IMPRESSION: 1. Fullness of the right ovary which is nonspecific and not well evaluated on this exam. No surrounding inflammatory change or free fluid within the right adnexa. 2. There are otherwise no acute findings within the abdomen or pelvis. Trace amount of free fluid within the pelvis more likely is physiologic. No evidence for acute colitis or acute diverticulitis. No evidence of a bowel obstruction. 3. Fatty liver 4. Stable appearance of a small benign granuloma within the periphery of the right lower lobe. Small 4 mm pleural-based nodule is present within the anterior aspect of the right middle lobe. For patients at low risk (minimal or absent history of smoking and of other known risk factors), no routine follow-up is indicated. For patients at high risk (history of smoking or of other known risk factors), consider optional CT Chest at 12 months. (Reference: Natalie) REFERENCES: Natalie Brewster, et al. Guidelines for Management of Incidental Pulmonary Nodules Detected on CT Images: From the Fleischner Society 2017. Radiology. 2017;284(1):228-243.
[2025-06-07] MEDS: SODIUM CHLORIDE 0.9% 10ML SYR (RAD ONLY) 10 ML IV (17:18)
[2025-06-07] MEDS: IOPAMIDOL-370 (76%);100ML BOTTLE 75 ML IV (17:18)
[2025-06-07 17:43] LABS: Microscopic, Urine URINE MICROSCOPIC (MICROSCOPIC)
[2025-06-07 17:51] LABS: Bilirubin,Urine Negative (Negative); Color,Urine YELLOW (Yellow); Glucose,Urine (UA) Negative (Negative); Ketones,Urine Negative (Negative); Leukocyte Esterase,Urine Negative (Negative); PH,Urine 6.0 (5.0-8.5); Protein,Urine Negative (Negative); Specific Gravity, Urine 1.010 (1.005-1.030); Urobilinogen,Urine 0.2 EU/dl (0.2)
[2025-06-07 18:27] LABS: Bacteria,Urine Trace /lpf; Squamous Epithelial Cell,Urine Occasional #/hpf (0-5)
[2025-06-07 18:47] VITALS: BP 141/72; PULSE 79; RESP 16; TEMP 36.9; O2SAT 98
--- NOTE | 2025-06-08 08:15 | PC.NURSE ---
Clinic pharmacy called to confirm the pt had IV torodol.
== END 2025-06-07 18:50 | disposition home or self-care (01) ==
PROVIDERS: Nurse Practitioner; Emergency Provider Student in an Organized Health Care Education/Training Program; PCP Nurse Practitioner Family
DX: R10.22 Pelvic and perineal pain left side (principal)
CPT/HCPCS: 74177; 76830; 80053; 81001; 83690; 83735; 84702; 85025; 85610; 85730; 86803; 87389; 96361; 96374; 96375; 99285; J0131; J1885; J2405; J7030; Q9967